=== PATIENT | female | born 1960 | race Caucasian/White ===

== ENCOUNTER 2023-05-22 08:57 | Outpatient (CLI) | payer BC, SELFPAY ==
--- NOTE | 2023-05-22 09:15 | CRLHL7_ITS ---
For Patients: As a result of the Century Cures Act, medical imaging exams and procedure reports are released immediately into your electronic medical record. You may view this report before your referring provider. If you have questions, please contact your health care provider. 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 A possible encapsulated papillary carcinoma may be present. Appropriate action recommended. This is concordant. Dictated by: Florencio Arciniega MD @05/25/2023 12:45:54 PM / CRL:breana ULTRASOUND-GUIDED RIGHT BREAST BIOPSY AND POST-BIOPSY DIGITAL MAMMOGRAM FOR BIOPSY MARKER PLACEMENT CLINICAL HISTORY: Indeterminate lesion RIGHT breast. COMPARISON STUDIES: 05/18/2023, 05/12/2023 TECHNIQUE: Real-time ultrasound with image documentation was used for targeting the breast lesion. Core biopsy specimens were obtained using an automated gun with a 18-gauge biopsy needle. Post-biopsy CC and ML digital mammograms were obtained to document position of the biopsy marker. CONSENT and TIME OUT: The procedure, risks, and alternatives were explained to the patient and a consent was signed. [place] Protocol was followed including pre-procedure verification that relevant information/documentation was available, reviewed and properly matched to the patient; consent accurate and complete; and equipment and supplies available. Time Out was conducted just prior to starting procedure to verify the four required elements: patient identity, correct side/site marked (if applicable), procedure, relevant images/results properly labeled and displayed (if applicable). PROCEDURE: The patient was positioned supine on the ultrasound table. The breast was prepped with ChloraPrep. 8 cc 1 percent lidocaine used for local anesthesia. Core samples were obtained. A sterile metal biopsy clip was placed percutaneously to lino the lesion position within the breast. The specimens were placed in 10% formalin and sent to the pathology department. Pressure was held on the biopsy site until all bleeding subsided. The skin incision was closed with Steri-Strips. An ice pack was positioned over the biopsy site. Post-biopsy instructions were reviewed with the patient, and a written copy was given to her. LATERALITY: RIGHT breast. LESION: Subtle slightly hypoechoic lesion measuring 10 x 5 x 11 millimeters at posterior depth at 1 o`clock 4 cm from the nipple. SUSPICION FOR MALIGNANCY: Medium NUMBER OF SAMPLES: 6 BIOPSY CLIP SHAPE: Oval. PROXIMITY OF CLIP TO TARGET: Within the lesion. IMPRESSION: Ultrasound-guided breast biopsy. When the pathology report is available, an addendum to this report will be made. ACR not applicable Dictated by Florencio Arciniega MD @ 05/22/2023 10:31:22 AM/MONA:graciela PT/Dictated by: Florencio Arciniega MD @ 05/22/2023 10:31:00 AM (Electronically Signed)
--- NOTE | 2023-05-22 10:00 | CRLHL7_ITS ---
For Patients: As a result of the Century Cures Act, medical imaging exams and procedure reports are released immediately into your electronic medical record. You may view this report before your referring provider. If you have questions, please contact your health care provider. PLEASE SEE RIGHT ULTRASOUND-GUIDED BIOPSY OF SAME DAY. CRL:[email or web address] PT/Dictated by: Florencio Arciniega MD @ 05/22/2023 10:31:00 AM (Electronically Signed)
== END 2023-05-22 08:58 | disposition home or self-care (01) ==
LOC: US 09:01
PROVIDERS: Visit Provider Registered Nurse
DX: R92.8 Other abnormal and inconclusive findings on diagnostic imaging of breast (principal); C50.911 Malignant neoplasm of unspecified site of right female breast
CPT/HCPCS: 19083; 77065; 88305; 88341; 88342; 88360; A4648; A4649

== ENCOUNTER 2023-05-31 14:51 | Outpatient (RCR) | payer BC, SELFPAY | END 2023-09-28 23:59 | disposition home or self-care (01) | PROVIDERS: Visit Provider Surgery | DX: I89.0 Lymphedema, not elsewhere classified (principal); Z51.89 Encounter for other specified aftercare | CPT/HCPCS: 97110; 97161 ==

== ENCOUNTER 2023-06-06 06:56 | Day surgery (SDC) | payer BC, SELFPAY ==
[2023-06-06 07:17] VITALS: BMI 33.7
[2023-06-06 07:29] VITALS: BP 137/83; PULSE 63; RESP 16; TEMP 36.4; O2SAT 97
[2023-06-06] MEDS: LACTATED RINGERS 1000 ML 1,000 ML 100 ML IV ×2 (07:40→12:30)
[2023-06-06] MEDS: SODIUM CHLORIDE 0.9 % (FLUSH) 10 ML SYRINGE IVF (07:40)
--- NOTE | 2023-06-06 08:45 | CRLHL7_ITS ---
For Patients: As a result of the Cures Act, medical imaging exams and procedure reports are released immediately into your electronic medical record. You may view this report before your referring provider. If you have questions, please contact your health care provider. RIGHT BREAST SPECIMEN RADIOGRAPH CLINICAL HISTORY: RIGHT breast cancer. COMPARISON: 05/18/2023. FINDINGS: Two views RIGHT breast specimen submitted. Specimen contains the biopsied mass, biopsy clip and localization wire. IMPRESSION: Specimen contains the mass, clip and wire. ACR not applicable. Dictated by Florencio Arciniega MD @ 06/07/2023 12:18:34 PM/ozzie ALICE/Dictated by: Florencio Arciniega MD @ 06/07/2023 12:18:00 PM (Electronically Signed)
--- NOTE | 2023-06-06 10:15 | CRLHL7_ITS ---
For Patients: As a result of the Century Cures Act, medical imaging exams and procedure reports are released immediately into your electronic medical record. You may view this report before your referring provider. If you have questions, please contact your health care provider. BREAST WIRE LOCALIZATION USING ULTRASOUND GUIDANCE CLINICAL HISTORY: Biopsy-proven malignancy RIGHT breast. Presents for lumpectomy. LATERALITY: RIGHT breast. LESION: Heterogeneous ill-defined solid mass RIGHT breast 1 o`clock posterior depth 4 cm from the nipple measuring 10 x 5 x 11 millimeters. LOCALIZATION WIRE: [place] hookwire. TECHNIQUE: The localization wire was placed using real-time ultrasound guidance with image documentation. Cranial-caudal and medial-lateral digital mammograms were obtained after localization wire placement. CONSENT and TIME OUT: The procedure, risks, and alternatives were explained to the patient and a consent was signed. [place] Protocol was followed including pre-procedure verification that relevant information/documentation was available, reviewed and properly matched to the patient; consent accurate and complete; and equipment and supplies available. Time Out was conducted just prior to starting procedure to verify the four required elements: patient identity, correct side/site marked (if applicable), procedure, relevant images/results properly labeled and displayed (if applicable). PROCEDURE: The skin was prepped with ChloraPrep and 6 cc of 1% lidocaine was injected for local anesthesia. The localization wire was placed within or near the targeted breast lesion using ultrasound guidance. The patient tolerated the procedure well. PROXIMITY OF WIRE TO LESION: Within the lesion. IMPRESSION: Successful breast wire localization. ACR not applicable Dictated by Florencio Arciniega MD @ 06/06/2023 12:05:29 PM jj/Dictated by: Florencio Arciniega MD @ 06/06/2023 12:05:00 PM (Electronically Signed)
--- NOTE | 2023-06-06 10:26 | SUR.PREOP ---
Patient to Ultra Sound by US staff at 1025.
[2023-06-06] MEDS: CEFAZOLIN 2 GM INJ IVP (12:15)
--- NOTE | 2023-06-06 13:13 | MM_ITS ---
Patient: RENO GARCIA Facility:?[facility] Patient ID:?[id number] Site Patient ID:?[id number]. Site :?[id number] Study:?XRay-Breast Right specimen, wire loc-06/06/2023 1:38:14 PM Ordering Physician:?Dave Rosenthal Final Report: RIGHT BREAST SPECIMEN RADIOGRAPH CLINICAL HISTORY: RIGHT breast cancer. COMPARISON: 05/18/2023. FINDINGS: Two views RIGHT breast specimen submitted. Specimen contains the biopsied mass, biopsy clip and localization wire. IMPRESSION: Specimen contains the mass, clip and wire. ACR not applicable. Dictated by Florencio Arciniega MD @ 06/07/2023 12:18:34 PM/ozzie ALICE/Dictated by: Florencio Arciniega MD @ 06/07/2023 12:18:00 PM Signed by:?Florencio Arciniega MD @06/07/2023 4:02:27 PM (Electronic Signature)
[2023-06-06] MEDS: LIDOCAINE 1 % PF 30 ML INJECTION (13:15)
[2023-06-06] MEDS: BUPIVACAINE 0.25% 30 ML INJECTION (13:15)
--- NOTE | 2023-06-06 14:10 | W.ANESCHARGE ---
Anesthesia Charges Start Date/Time Anesthesia Start Date: 06/06/23 Anesthesia Start Time: 12:27 Stop Date/Time Anesthesia Stop Date: 06/06/23 Anesthesia Stop Time: 14:10
--- NOTE | 2023-06-06 14:10 | W.ANESCHARGE ---
Anesthesia Charges Start Date/Time Anesthesia Start Date: 06/06/23 Anesthesia Start Time: 12:27 Stop Date/Time Anesthesia Stop Date: 06/06/23 Anesthesia Stop Time: 14:10
--- NOTE | 2023-06-06 14:13 | PM.GSPRC ---
Operative Note Pre-op diagnosis: DCIS, right breast Post-op diagnosis: Same Type of Procedure: Right breast lumpectomy, wire localization Indications: Patient is a 62-year-old female who presented to clinic with a new diagnosis DCIS of the right breast. Different treatment options were reviewed with the patient, please see consultation note for full discussion. Risks and benefits of operative intervention were discussed at length with the patient. Risks included but was not limited to: Bleeding, infection, risk of damage to surrounding structures, possible need for additional procedures and postoperative complications such as pneumonia, pulmonary emboli or MT. All questions and concerns were addressed with the patient agreeing to proceed. Procedure Description: Prior to arrival in the operating room, the patient was taken to radiology where a wire was placed to localize the previously placed clip. The right breast and axilla were prepped and draped in the usual sterile fashion. Timeout was confirmed. Local anesthesia was infiltrated into a transfers incision in the 1 o'clock position at the location of the tip of the wire. Using electrocautery, the segment of breast tissue containing the tip of the wire was excised. This was sent for evaluation. Radiology called back and confirmed that the clip, wire and mass were present within the specimen. Pathology then called back and confirmed that the margins were appropriate, but appeared close on the posterior and anterior aspect, within 5 mm, so additional margins were obtained on the anterior and posterior aspects of the lumpectomy cavity. This was sent for permanent pathology. The wounds were irrigated and all irrigant suctioned from the wound. Gerson was applied within the cavity. Additional local anesthesia was infiltrated. The wounds were then closed in layers using absorbable suture, and Dermbond was placed over the wounds. The patient was awakened without incident and taken to PACU in stable condition. Sponge, needle and instrument counts were correct x3 at the termination of the case. The patient tolerated the procedure well. Findings: Right breast DCIS, margins negative. Anesthesia: MAC and local Surgeon: Ariadna Acosta MD Estimated blood loss (mL): 5 Additional Specimen Information: 1. Right breast lumpectomy 2. Anterior margin, inked side on side of specimen 3. Posterior margin Condition: stable Disposition: same day Date of procedure: 06/06/23
[2023-06-06 14:14] VITALS: BP 125/79; PULSE 67; RESP 16; TEMP 36.4; O2SAT 95
[2023-06-06 14:30] VITALS: BP 138/76; PULSE 54; RESP 16; O2SAT 97
[2023-06-06 14:45] VITALS: BP 143/88; PULSE 53; RESP 16; O2SAT 97
--- NOTE | 2023-06-06 14:57 | SUR.PHASEII ---
Dr. Acosta into see Pt Pt up in recliner dressed with minimal assist
--- NOTE | 2023-06-06 15:13 | SUR.PHASEII ---
Pt very stoic and not speaking much discharge instructions gone over with pt and she appeared to understand questions answered pt discharged to home with no verbalization or thank you Wished her a good recovery
== END 2023-06-06 15:15 | disposition home or self-care (01) ==
PROVIDERS: PCP Internal Medicine; Visit Provider Surgery
PROC: (CPT 19125; principal; 2023-06-06 11:00)
DX: D05.11 Intraductal carcinoma in situ of right breast (principal)
CPT/HCPCS: 19125; 00400; 19285; 77065; C1769; J0665; J0690; J1100; J2001; J2250; J2405; J2704; J3010; J7120

== ENCOUNTER 2023-06-22 07:09 | Outpatient (CLI) | payer BC, SELFPAY ==
--- NOTE | 2023-06-22 07:15 | CRLHL7_ITS ---
For Patients: As a result of the 21st Century Cures Act, medical imaging exams and procedure reports are released immediately into your electronic medical record. You may view this report before your referring provider. If you have questions, please contact your health care provider. BILATERAL BREAST MRI WITHOUT AND WITH GADOLINIUM, 06/22/2023 CLINICAL HISTORY: This is a 62-year-old female with recently diagnosed RIGHT breast cancer. Patient originally had a ultrasound biopsy of a RIGHT breast 1 x 0.5 x 1.1 cm mass 1 o???clock position 4 cm from the nipple. This yielded DCIS. Cannot rule out encapsulated papillary carcinoma. Patient underwent lumpectomy on 06/06/2023 which yielded multifocal invasive ductal carcinoma measuring 4 mm and 1.8 mm. Extensive DCIS at least 17 mm. Invasive carcinoma 1 mm from the lateral margin. DCIS involves the lateral margin and is less than 1 mm from the inferior and anterior margins. INDICATION FOR BREAST MRI: Problem-solving breast MRI. COMPARISON STUDIES: Ultrasound 05/22/2023. Mammogram 06/06/2023, 02/11/2022. CONTRAST: 15 cc Dotarem. TECHNIQUE: The patient was positioned prone using a breast coil. Multiple imaging sequences were obtained using 1-1.5 mm thick slices with no gap. The image sequences include T2-weighted STIR in the axial plane, T1-weighted nonfat-saturated gradient echo in the axial plane, pre- and post-contrast T1-weighted FLASH 3D with fat suppression in the axial plane, and T1-weighted FLASH high-resolution 3D with fat suppression in the sagittal plane. Image post-processing was performed on a [employer] workstation. Complex 3D rendering including maximum intensity projections (MIPS) and volumetric renderings were obtained to optimize visualization of the extent of pathology and relationship to the nipple, skin, and chest wall. This aids in determining feasibility of breast conservation surgery. Subtraction, multiplanar reconstruction, mean curve determination, and angiogenesis mapping were also performed. The study was technically adequate. FINDINGS: Breast Density: Scattered fibroglandular tissue. Breast Background Enhancement: Mild. RIGHT Breast: There is a large 6.3 x 4.4 cm hematoma at the lumpectomy site in the RIGHT central superior breast. There is surrounding non mass enhancement present. This probably reflects post biopsy changes and/or residual tumor which cannot be excluded. There is no suspicious enhancing mass seen. LEFT Breast: There is no suspicious enhancement within the LEFT breast. Lymph Nodes: There are no abnormal axillary lymph nodes. IMPRESSIONS AND RECOMMENDATIONS: Post lumpectomy changes of the RIGHT breast. There is post operative 4.4 x 6.3 cm hematoma at the lumpectomy site. There is mild surrounding non mass enhancement which may represent post biopsy changes and/or residual tumor. There is no suspicious enhancing mass seen in either breast. There are no abnormal axillary lymph nodes. Surgical and oncological management per referring physician. BI-RADS: BI-RADS Category 6: Known Biopsy-Proven Malignancy Elaina Mauro M.D. Diagnostic/Breast Radiologist [email or web address] Transcribed: 1:28 p.m. JR/Dictated by: Elaina Mauro MD @ 06/27/2023 1:09:00 PM (Electronically Signed)
== END 2023-06-22 07:10 | disposition home or self-care (01) ==
LOC: MRI 07:10
PROVIDERS: PCP Internal Medicine; Visit Provider Surgery
DX: C50.911 Malignant neoplasm of unspecified site of right female breast (principal); D05.11 Intraductal carcinoma in situ of right breast
CPT/HCPCS: 77049; A9575

== ENCOUNTER 2023-07-18 06:57 | Day surgery (SDC) | payer BC, SELFPAY ==
[2023-07-18] VITALS (7 sets, daily range): BP systolic 128–150; BP diastolic 54–101; PULSE 59–70; RESP 16; TEMP 36–36.4; O2SAT 96–99; BMI 30.7
[2023-07-18] MEDS: LACTATED RINGERS 1000 ML 1,000 ML 100 ML IV (07:15)
--- NOTE | 2023-07-18 07:30 | CRLHL7_ITS ---
For Patients: As a result of the Century Cures Act, medical imaging exams and procedure reports are released immediately into your electronic medical record. You may view this report before your referring provider. If you have questions, please contact your health care provider. SENTINEL LYMPH NODE LOCALIZATION INJECTION CLINICAL HISTORY: Intraductal carcinoma in situ of right breast LATERALITY: Right breast TECHNIQUE: With the patient supine, the periareolar right breast was cleansed with alcohol. 2 cc of 1% buffered lidocaine was injected intradermal in the upper outer periareolar region of the right breast with a 25-gauge needle. Next, 0.63 millicuries of technetium Tc 99m filtered sulfur colloid in a volume of 1 cc was injected intradermal in the upper outer periareolar breast with a 25-gauge needle. The patient tolerated the procedure well and there were no immediate complications. IMPRESSION: Injection for sentinel lymph node of the right breast. Dictated by Florencio Arciniega MD @ 07/18/2023 9:44:10 AM (Electronically Signed)
--- NOTE | 2023-07-18 07:40 | SUR.PREOP ---
Nuclear Med here.
[2023-07-18] MEDS: SODIUM CHLORIDE 0.9 % (FLUSH) 10 ML SYRINGE IVF (07:43)
[2023-07-18] MEDS: CEFAZOLIN 2 GM INJ IVP (08:45)
[2023-07-18] MEDS: ISOSULFAN BLUE 5 ML VIAL INJECTION (08:45)
[2023-07-18] MEDS: LIDOCAINE 1 % PF 30 ML INJECTION (09:00)
[2023-07-18] MEDS: BUPIVACAINE 0.25% 30 ML INJECTION (09:00)
--- NOTE | 2023-07-18 10:33 | P.GSOP_ITS ---
Operative Note Pre-op diagnosis: Invasive ductal carcinoma, right breast Post-op diagnosis: Same Type of Procedure: 1. Re-excision lateral margin right breast lumpectomy site 2. Injection of radionucleotide tracer 3. [place] lymph node biopsy Indications: Patient is a 62-year-old female who initially underwent a right breast lumpectomy for DCIS. Unfortunately final pathology came back as invasive ductal carcinoma with positive lateral margin for DCIS. Risks and benefits of re- excision were discussed at length with the patient, as well as the rationale for sentinel lymph node in the setting of invasive cancer. Risks and benefits of the procedure were discussed at length the patient, including but not limited to: Bleeding, infection, risk of damage to surrounding structures and the possibility of positive margin. Specifically relation to the sentinel node we also discussed injury to surrounding structures and the possibility of lymphedema. All questions and concerns were addressed with patient agreeing to proceed. Procedure Description: Prior to arrival in the operating room, I injected the patient with a radiocolloid tracer. The patient was then brought to the operating room where anesthesia was induced. I injected 2 ml of lymphazurin blue and performed breast massage for a period of 5 minutes. The right breast and axilla were prepped and draped in the usual sterile fashion. Timeout was confirmed. Local anesthesia was infiltrated into a previously well-healed transverse incision at 3:00 o'clock. Using elect rocautery, the tissues were dissected down to the previously healed lumpectomy site. The lateral margin of lumpectomy was then excised with electrocautery to be sent for evaluation by pathology. Pathology did note some abnormality of the tissue leading up to the margin, concerning for DCIS invasion and requested additional tissue. Using the same techniques another lateral margin was obtained and sent for frozen evaluation. Margins were close, but negative on gross evaluation of the 2nd specimen. Hemostasis was assured and the cavity irrigated. Gerson was placed within the cavity. The incision was closed in layers with interrupted 3 0 Vicryl and running 4-0 Monocryl subcuticular stitch We then elected to perform the sentinel node aspect of the procedure. Using the neoprobe, the area of maximal counts was identified. Local anesthesia was infiltrated into the skin and an incision was made. This was carried down to the subcutaneous tissue using electrocautery. Using a combination of blunt dissection and electrocautery, a hot and blue node was resected. No additional nodes were resected in a similar fashion, taking care to tie off the lymphatics. These were sent to pathology for permanent evaluation. The axillary wound was irrigated and hemostasis assured. Gerson was placed within the cavity. The wound was closed in layers. Dermabond, fluffs and an [place]jo bandage was applied. The patient was awakened without incident and taken to PACU in stable condition. Sponge, needle and instrument counts were correct x3 at the termination of the case. Sterile dressings were then applied. ? The patient was then woken and transported to the recovery area in stable condition. ? The patient tolerated the procedure well. Findings: Well-healed lumpectomy site. Re-excision of lateral margins x2. Single sentinel lymph node identified. Surgeon: Ariadna Acosta MD Estimated blood loss (mL): 10 Additional Specimen Information: 1. Lateral margin right breast lumpectomy site 2. Re excision lateral margin right breast 3. [place] lymph node Condition: stable Disposition: same day Date of procedure: 07/18/23 [place] Node Biopsy for Breast Cancer Operation Performed with Curative Intent: Yes Tracers used to Identify sentinel nodes in the upfront surgery (non-neoadjuvant) setting: Dye and Radioactive Tracer All nodes (colored or non-colored) present at the end of a dye filled lymphatic channel were removed: Yes All significantly radioactive nodes were removed: Yes All palpably suspicious nodes were removed: Yes Biopsy proven positive nodes marked with clips prior to chemotherapy were identified and removed: Not Applicable
--- NOTE | 2023-07-18 10:41 | W.ANESCHARGE ---
Anesthesia Charges Start Date/Time Anesthesia Start Date: 07/18/23 Anesthesia Start Time: 08:33 Stop Date/Time Anesthesia Stop Date: 07/18/23 Anesthesia Stop Time: 10:32
--- NOTE | 2023-07-18 11:37 | W.ANESCHARGE ---
Anesthesia Charges Start Date/Time Anesthesia Start Date: 07/18/23 Anesthesia Start Time: 08:33 Stop Date/Time Anesthesia Stop Date: 07/18/23 Anesthesia Stop Time: 10:32
[2023-07-18] MEDS: ACETAMINOPHEN 325 MG TABLET 650 MG PO (11:41)
== END 2023-07-18 12:11 | disposition home or self-care (01) ==
PROVIDERS: PCP Internal Medicine; Visit Provider Surgery
PROC: (CPT 19120; principal; 2023-07-18 08:30)
PROC: (CPT 19120; 2023-07-18 08:30)
DX: C50.911 Malignant neoplasm of unspecified site of right female breast (principal)
CPT/HCPCS: 19120; 38500; 01610; 38792; 88307; A9270; A9541; J0665; J0690; J1100; J2001; J2250; J2405; J2704; J3010; J7120

== ENCOUNTER 2023-08-30 14:32 | Outpatient (CLI) | payer BC, SELFPAY ==
--- NOTE | 2023-08-30 15:00 | CRLHL7_ITS ---
For Patients: As a result of the Century Cures Act, medical imaging exams and procedure reports are released immediately into your electronic medical record. You may view this report before your referring provider. If you have questions, please contact your health care provider. DXA BONE MINERAL DENSITY STUDY Current height (in): 64.0. Weight (lb): 196.0 Menopause age: 56. Ethnicity: White. Reason for exam: Menopausal and female climacteric states, menopausal syndrome. 1. Have you had a previous hip or vertebral fracture? No. 2. Have you had any fractures during your adult life which did not result from significant trauma (e.g., auto accident)? No. 3. Did either of your parents have a hip fracture? Yes. 4. Do you smoke? No. 5. Have you ever taken Glucocorticoids? No. 6. Do you have rheumatoid arthritis? No. 7. Do you have secondary osteoporosis? No. 8. Do you drink 3 or more alcoholic drinks per day? No. 9. Are you being treated for osteoporosis? No. 10. Have you ever taken any of the following medications: Actonel, Evista, Fosamax, Miacalcin, Reclast, Boniva, Forteo, HRT (i.e. estrogen/hormone therapy), Protelos, Prolia, Vitamin D, Calcium, other ??? please specify. ANSWER: No. 11. Do you have any of the following medical conditions: Anorexia or bulimia, asthma or emphysema, end stage renal disease, hyperparathyroidism, any seizure disorders, cancer, inflammatory bowel diseases, hysterectomy, other ??? please specify. ANSWER: Yes, cancer. 12. What was your maximum height (inches)? 67. 13. Do you perform weight bearing exercise regularly? No. 14. Do you regularly consume dairy products? Yes. 15. Do you drink caffeinated beverages? Yes. 16. At what age did your period start? 14. 17. Are you premenopausal? No. 18. How many full term pregnancies have you had? 2. 19. Have you ever missed your period for more than 6 months in a row (not including or menopause)? No. TECHNIQUE: Bone mineral density study was performed using the [employer]. FINDINGS: The results of the study expressed as bone mineral density (BMD) are as follows: Lumbar spine L2 to L4: BMD: 1.324 g/cm2. T-score: 2.2. Z-score: 3.8 Neck Left: BMD: 0.842 g/cm2. T-score: -0.1. Z-score: 1.3 Total Left: BMD: 0.970 g/cm2. T-score: 0.2. Z-score: 1.3 IMPRESSION: Normal bone density. Florencio Arciniega M.D. Diagnostic Radiologist [email or web address] Transcribed: 11:44 am DW/Dictated by: Florencio Arciniega MD @ 08/31/2023 10:51:00 AM (Electronically Signed)
== END 2023-08-30 14:33 | disposition home or self-care (01) ==
LOC: RAD 14:33
PROVIDERS: PCP Internal Medicine; Visit Provider Internal Medicine Hematology & Oncology
DX: N95.1 Menopausal and female climacteric states (principal)
CPT/HCPCS: 77080

== ENCOUNTER 2023-12-04 06:30 | Outpatient (CLI) | payer BC, SELFPAY ==
--- OUTSIDE RECORDS SUMMARY | 2023-12-04 06:33 | XMS_ITS | Encounter Summary ---
Author Name Unknown Organization [facility] Address [address] [place] [address] Care Team Providers Care Wind Turbine Electrical Engineer Name Role Phone Unavailable Primary Care Provider Unavailabl e Encounter Details Date Type Department Care Team (Late st Contact Info) Description 10/19/2023 Clinical Communication Department of Radiation Oncology in [place], [place] [address] [place] [address] Fran Delgado M.D. [address] [place] [phone] Social History Tobacco Use Types Packs/Day Years Used Date Smoking Tobacco: Never Smokeless Tobacco: Never [facility] Utilities Answer Date Recorded In the past 12 months has [facility] electric, gas, oil, or water company threatened to shut off services in your home? No 09/19/2023 Exercise Vital Sign Answer Date Recorde d On average, how many days pe r week do you engage in moderate to strenuous exercise (like a brisk walk)? 2 days Minutes of Exercise per Session Not on file 09/19/2023 Hunger Vital Sign Answer Date Recorded Within the past 12 months, y ou worried that your food would run out before you got the money to buy more. Never true 09/19/19 24 Within the past 12 months, t he food you bought just didn't last and you didn't have money to get more. Never true 09/19/2023 PRAPARE - Transportation Answer Date Re corded In the past 12 months, has l ack of transportation kept you from medical appointments or from getting medications? No 08/29 In the past 12 months, has l ack of transportation kept you from meetings, work, or from getting things needed for daily living? No 09/19/2023 Nutrition Answer Date Recorded Nutrition: EVOO Fat Source Unknown 09/19 On average, how many serving s of fruits and vegetables do you eat per day (serving size is equal to 1 cup or approximately the size of a tennis ball)? 0-2 09/19/2023 Dental Answer Date Recorded Dental: Regular Dentist Yes 09/19/19 24 Employment Answer Date Recorded Employment status Working with temporary restric tions 09/19/2023 Housing Stability Answer Date Recorded What is your living situation today? I have a [facility] place to live 09/19/2023 Sex and Gender Information Value Date Recorded Sex Assigned at Female 09/19/2023 1:29 PM LAND SURVEYOR MANAGER Gender Identity Female 09/19/2023 1:31 PM LAND SURVEYOR MANAGER Sexual Orientation Straight 09/19/2023 1: 31 PM LAND SURVEYOR MANAGER documented as of this encounter Miscellaneous Notes * Telephone Encounter - Xenia Hall R.N. - 10/19/2023 10:51 AM LAND SURVEYOR MANAGER Information Discussed Called patient to discuss Mometasone refill. Patient is 3 weeks post completion of radiation therapy and reports that her skin is healing nicely and that she doesn't have any blistering or peeling. Her skin is not dry or itchy and she continues to use Aquaphor and lotion for hydration. She has beenintermittently applying the Mometasone cream to her scar for discomfort and felt that the cream helped. PLAN Discussed with patient that we typically wouldn't refill the Mometasone if her skin was healed and she wasn't experiencing radiation related dermatitis. She can apply Aquaphor on her scar and massageher scar daily to help with discomfort. She could also try OTC Hydrocortisone cream as well to her scar. Patient verbalized understanding and had no further questions. Disposition/Recommendation: self-care - appropriate at this time, patient encouraged to call back with questions Information/Education: patient/caller able to teach back Caller agreeable to plan of care: yes The following references were used: nursing clinical judgement SURVEYOR MANAGER * Telephone Encounter - Brandon Hall - 10/19/2023 9:55 AM CST Refill Medication Request: Medication: Mometasone Patient attempted to refill this prescription and the pharmacy stated that it was denied. Patient would like a refill of the cream as she says it provides her with a fair amount of relief. Patient uses [facility] in [place]. SURVEYOR MANAGER documented in this encounter Plan of Treatment Not on file documented as of this encounter Visit Diagnoses Not on filedocumented in this encounter
--- OUTSIDE RECORDS SUMMARY | 2023-12-04 06:33 | XMS_ITS | Referral Summary ---
Author Name Unknown Organization [facility] Address [address] [place] [address] Care Team Providers Care Veterans Service Representative Name Role Phone Unavailable Primary Care Provider Unavailabl e Source Comments Patient records contain information from all sites at [facility]. For routine questions regarding patient records, call [phone] during business hours, M-F 8:00 AM - 5:00 PM Central Time. Record requests for emergency care only can be directed to [phone] at any time.[facility] Encounters Date Type Department Care Team Description 10/19/2023 Clinical Communication Department of Radiation Oncology in [address] [phone] Fran Delgado M.D. 10/19/2023 Refill Department of Radiation Oncology in [address] [address] Bella Mora P.A.-C., M.S. Med Refill 09/29/2023 Documentation Department of Radiation Oncology in [address] [address] Pastora Wayne M.D. 09/29/2023 1:06 PM PYROTECHNICS PRESS TENDER - 09/29/2023 11:59 PM PYROTECHNICS PRESS TENDER Hospital Encounter Department of Radiation Oncology in [address] [address] Pastora Wayne M.D. Discharge Disposition: Home or Self Care 09/28/2023 12:21 PM PYROTECHNICS PRESS TENDER - 09/28/2023 11:59 PM PYROTECHNICS PRESS TENDER Hospital Encounter Department of Radiation Oncology in [address] [phone] Pastora Wayne M.D. Discharge Disposition: Home or Self Care 09/27/2023 12:51 PM PYROTECHNICS PRESS TENDER - 09/27/2023 11:59 PM PYROTECHNICS PRESS TENDER Hospital Encounter Department of Radiation Oncology in [address] [address] Pastora Wayne M.D. Discharge Disposition: Home or Self Care 09/26/2023 12:52 PM PYROTECHNICS PRESS TENDER - 09/26/2023 4:16 PM PYROTECHNICS PRESS TENDER Hospital Encounter Department of Radiation Oncology in [address] [address] Pastora Wayne M.D. 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 Discharge Disposition: Home or Self Care 09/25/2023 12:49 PM PYROTECHNICS PRESS TENDER - 09/25/2023 11:59 PM PYROTECHNICS PRESS TENDER Hospital Encounter Department of Radiation Oncology in [address] [address] Pastora Wayne M.D. Discharge Disposition: Home or Self Care 09/22/2023 12:51 PM PYROTECHNICS PRESS TENDER - 09/22/2023 11:59 PM PYROTECHNICS PRESS TENDER Hospital Encounter Department of Radiation Oncology in [address] [address] Pastora Wayne M.D. Discharge Disposition: Home or Self Care 09/21/2023 12:53 PM PYROTECHNICS PRESS TENDER - 09/21/2023 11:59 PM PYROTECHNICS PRESS TENDER Hospital Encounter Department of Radiation Oncology in [address] [address] Pastora Wayne M.D. Discharge Disposition: Home or Self Care 09/20/2023 12:51 PM PYROTECHNICS PRESS TENDER - 09/20/2023 11:59 PM PYROTECHNICS PRESS TENDER Hospital Encounter Department of Radiation Oncology in [address] [address] Pastora Wayne M.D. Discharge Disposition: Home or Self Care 09/19/2023 12:53 PM PYROTECHNICS PRESS TENDER - 09/19/2023 3:51 PM PYROTECHNICS PRESS TENDER Hospital Encounter Department of Radiation Oncology in [address] [phone] Pastora Wayne M.D. 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 Discharge Disposition: Home or Self Care 09/18/2023 12:35 PM PYROTECHNICS PRESS TENDER - 09/18/2023 1:34 PM PYROTECHNICS PRESS TENDER Hospital Encounter Department of Radiation Oncology in [address] [address] Pastora Wayne M.D. 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 Discharge Disposition: Home or Self Care 09/15/2023 12:25 PM PYROTECHNICS PRESS TENDER - 09/15/2023 11:59 PM PYROTECHNICS PRESS TENDER Hospital Encounter Department of Radiation Oncology in [address] [address] Pastora Wayne M.D. 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 Discharge Disposition: Home or Self Care 09/14/2023 12:31 PM PYROTECHNICS PRESS TENDER - 09/14/2023 11:59 PM PYROTECHNICS PRESS TENDER Hospital Encounter Department of Radiation Oncology in [address] [phone] Pastora Wayne M.D. Discharge Disposition: Home or Self Care 09/13/2023 10:27 AM PYROTECHNICS PRESS TENDER - 09/13/2023 1:25 PM PYROTECHNICS PRESS TENDER Hospital Encounter Department of Radiation Oncology in [address] [address] Pastora Wayne M.D. 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 Discharge Disposition: Home or Self Care 09/12/2023 12:23 PM PYROTECHNICS PRESS TENDER - 09/12/2023 11:59 PM PYROTECHNICS PRESS TENDER Hospital Encounter Department of Radiation Oncology in [address] [phone] Pastora Wayne M.D. Discharge Disposition: Home or Self Care 09/11/2023 11:49 AM PYROTECHNICS PRESS TENDER - 09/11/2023 11:59 PM PYROTECHNICS PRESS TENDER Hospital Encounter Department of Radiation Oncology in [address] [address] Pastora Wayne M.D. Discharge Disposition: Home or Self Care from Last 3 Months Allergies No known active allergies Medications Medication Sig Dispensed Refills Start Date End Date Status HYDROcodone-acetamin ophen (NORCO) 5-325 mg per tablet Take 1 tablet by mouth every 6 (six) hours as needed for pain. 0 06/06/2023 Active senna 8.6 mg tablet TAKE 1 TABLET BY MOUTH EVERY DAY NEEDED FOR CONSTIPATION. 0 06/06/2023 Active mometasone (ELOCON) 0.1 % cream Apply 1 Application topically daily. Apply to skin within the treatment field. 45 g 0 08/31/2023 Active Active Problems Problem Noted Date Diagnosed Date Malignant Neoplasm Of Breast Upper Inner Quadrant Female Right 07/03/2023 Cancer Staging:Pathologic stage from 06/06/2023:Stage Unknown(pT1a, pNX, cM0, G2, ER+, [place]+, HER2-) - Unsigned Social History Tobacco Use Types Packs/Day Years Used Date Smoking Tobacco: Never Smokeless Tobacco: Never Tobacco Cessation:Counseling Given: Not Answered [facility] Utilities Answer Date Recorded In the past 12 months has th e [employer], gas, oil, or water [employer] threatened to shut off services in your [...] money to buy more. Never true 09/19/19 Within the past 12 months, t he [...] Date Recorded Dental: Regular Dentist Yes 09/19/19 Employment Answer Date Recorded Employment status Working with temporary restric tions 09/19/2023 Housing Stability Answer Date Recorded What is your living situation today? I have a [facility] place to live 09/19/2023 Sex and Gender Information Value Date Recorded Sex Assigned at Female 09/19/2023 1:29 PM PYROTECHNICS PRESS TENDER Gender Identity Female 09/19/2023 1:31 PM PYROTECHNICS PRESS TENDER Sexual Orientation Straight 09/19/2023 1: 31 PM PYROTECHNICS PRESS TENDER Last Filed Vital Signs Vital Sign Reading Time Taken Comments Blood Pressure 132/76 08/30/2023 12:55 PM PYROTECHNICS PRESS TENDER Pulse 68 08/30/2023 12:55 PM PYROTECHNICS PRESS TENDER Temperature 36.1 ??C (97 ??F) 09/19/2023 1:32 PM PYROTECHNICS PRESS TENDER Respiratory Rate - - Oxygen Saturation - - Inhaled Oxygen Concentration - - Weight 88.4 kg (194 lb 14.2 oz) 024 10:46 AM PYROTECHNICS PRESS TENDER Height - - Body Mass Index - - Plan of Treatment Not on file Procedures Procedure Name Priority Date/Time Associated Diagnosis Comments ARIA COURSE COMPLETE TREATMENT INFORMATION Routine 09/29/2023 1:24 PM PYROTECHNICS PRESS TENDER ARIA DAILY TREATMENT INFORMATION Routine 09/29/2023 1:24 PM PYROTECHNICS PRESS TENDER ARIA DAILY TREATMENT INFORMATION Routine 09/28/2023 1:07 PM PYROTECHNICS PRESS TENDER ARIA DAILY TREATMENT INFORMATION Routine 09/27/2023 1:10 PM PYROTECHNICS PRESS TENDER ARIA DAILY TREATMENT INFORMATION Routine 09/26/2023 1:16 PM PYROTECHNICS PRESS TENDER ARIA DAILY TREATMENT INFORMATION Routine 09/25/2023 1:20 PM PYROTECHNICS PRESS TENDER ARIA DAILY TREATMENT INFORMATION Routine 09/22/2023 1:18 PM PYROTECHNICS PRESS TENDER ARIA DAILY TREATMENT INFORMATION Routine 09/21/2023 1:07 PM PYROTECHNICS PRESS TENDER ARIA DAILY TREATMENT INFORMATION Routine 09/20/2023 1:17 PM PYROTECHNICS PRESS TENDER ARIA DAILY TREATMENT INFORMATION Routine 09/19/2023 1:05 PM PYROTECHNICS PRESS TENDER ARIA DAILY TREATMENT INFORMATION Routine 09/18/2023 12:42 PM PYROTECHNICS PRESS TENDER ARIA DAILY TREATMENT INFORMATION Routine 09/15/2023 12:47 PM PYROTECHNICS PRESS TENDER ARIA DAILY TREATMENT INFORMATION Routine 09/14/2023 12:47 PM PYROTECHNICS PRESS TENDER ARIA DAILY TREATMENT INFORMATION Routine 09/13/2023 10:39 AM PYROTECHNICS PRESS TENDER ARIA DAILY TREATMENT INFORMATION Routine 09/12/2023 1:00 PM PYROTECHNICS PRESS TENDER ARIA DAILY TREATMENT INFORMATION Routine 09/11/2023 12:28 PM PYROTECHNICS PRESS TENDER ARIA COURSE COMPLETE TREATMENT INFORMATION Routine 09/06/2023 12:40 PM PYROTECHNICS PRESS TENDER from Last 3 Months Results * Aria Course Complete Treatment Information (09/29/2023 1:24 PM PYROTECHNICS PRESS TENDER) Only the most recent of2 resultswithin the time period is included. Course ID 1xBreast TORIBIO ARIA Course Start Date 4 09:06 PYROTECHNICS PRESS TENDER TORIBIO ARIA Course End Date 4 13:16 PYROTECHNICS PRESS TENDER TORIBIO ARIA First Treatment Date 4 12:27 PYROTECHNICS PRESS TENDER TORIBIO ARIA Last Treatment Date 4 13:24 PYROTECHNICS PRESS TENDER TORIBIO ARIA Treatment Elapsed Days 18 TORIBIO ARIA Reference Point [id number] TORIBIO ARIA Dosage Given to Date cGy 4005 TORIBIO ARIA Plan ID [id number] TORIBIO ARIA Fractions Treated to Date 15 TORIBIO ARIA Planned Total Fractions 15 TORIBIO ARIA Prescribed Dose Per Fraction 267 TORIBIO ARIA Prescription Dose in cGy 4005 TORIBIO ARIA Plan Primary Reference Point [id number] TORIBIO ARIA 09/29/2023 1:24 PM PYROTECHNICS PRESS TENDER Provider Not In System RADIATION ONCOLOG Y ORDERABLES TORIBIO ARIA na * Aria Daily Treatment Information (09/29/2023 1:24 PM PYROTECHNICS PRESS TENDER) Only the most recent of15 resultswithin the time period is included. Course ID 1xBreast TORIBIO ARIA Course Start Date 4 09:06 PYROTECHNICS PRESS TENDER TORIBIO ARIA First Treatment Date 4 12:27 PYROTECHNICS PRESS TENDER TORIBIO ARIA Last Treatment Date 4 13:24 PYROTECHNICS PRESS TENDER TORIBIO ARIA Treatment Elapsed Days 18 TORIBIO ARIA Reference Point [id number] TORIBIO ARIA Dosage Given to Date cGy 4005 TORIBIO ARIA Session Dosage Given 267 TORIBIO ARIA Plan ID [id number] TORIBIO ARIA Fractions Treated to Date 15 TORIBIO ARIA Planned Total Fractions 15 TORIBIO ARIA Prescribed Dose Per Fraction 267 TORIBIO ARIA Prescription Dose in cGy 4005 TORIBIO ARIA Plan Primary Reference Point [id number] TORIBIO ARIA 09/29/2023 1:24 PM PYROTECHNICS PRESS TENDER Provider Not In System RADIATION ONCOLOG Y ORDERABLES MALU GRANGER na from Last 3 Months
--- OUTSIDE RECORDS SUMMARY | 2023-12-04 06:33 | XMS_ITS ---
Author Name Unknown Organization [facility] Address [address] [place] [address] Care Team Providers Care Seamer Operator Name Role Phone Unavailable Primary Care Provider Unavailabl e Active Problems Problem Noted Date Diagnosed Date Malignant Neoplasm Of Breast Upper Inner Quadrant Female Right 07/03/2023 Cancer Staging:Pathologic stage from 06/06/2023:Stage Unknown(pT1a, pNX, cM0, G2, ER+, [place]+, HER2-) - Unsigned Current Oncology Plans No current plan information found. Past Plans No past plan information found. Radiation Treatments * Plan Last Treated On Elapsed Days Fractions Treated Prescribed Fraction Dose Prescribed Total Dose [id number] 09/29/2023 18 15 of 15 267 cGy 4,005 cGy Reference Point Last Treated On Elapsed Days Session Dose Total Dose [id number] 09/29/2023 18 267 cGy 4,005 cGy
--- OUTSIDE RECORDS SUMMARY | 2023-12-04 06:33 | XMS_ITS | Encounter Summary ---
Author Name Unknown Organization [facility] Address [address] [place] [address] Care Team Providers Care Motor And Generator Assembler Name Role Phone Unavailable Primary Care Provider Unavailabl e Reason for Visit * Reason Comments Med Refill Encounter Details Date Type Department Care Team (Late st Contact Info) Description 10/19/2023 Refill Department of Radiation Oncology in [place], [place] [address] [place] [address] Bella Mora P.A.-C., M.S. [address] [place] [address] Med Refill Social History Tobacco Use Types Packs/Day Years Used Date Smoking Tobacco: Never Smokeless Tobacco: Never [facility] Utilities Answer Date Recorded In the past 12 months has [facility] electric, gas, oil, or water [employer] threatened to shut off services in your [...] Date Recorded Employment status Working with temporary [employer] 09/19/2023 Housing Stability Answer Date Recorded What is your living situation today? I have a [facility] place to live 09/19/2023 Sex and Gender Information Value Date Recorded Sex Assigned at Female 09/19/2023 1:29 PM TORPEDO SHOOTER Gender Identity Female 09/19/2023 1:31 PM TORPEDO SHOOTER Sexual Orientation Straight 09/19/2023 1: 31 PM TORPEDO SHOOTER documented as of this encounter Plan of Treatment Not on file documented as of this encounter Visit Diagnoses Not on filedocumented in this encounter
--- OUTSIDE RECORDS SUMMARY | 2023-12-04 06:33 | XMS_ITS ---
Author Name Unknown Organization [facility] Address [address] [place] [address] Care Team Providers Care Manager Book Name Role Phone Unavailable Unavailable Unavailable Surgery Details Not on file Complications Check Surgery Details section. Procedure Estimated Blood Loss Check Surgery Details section. Procedure Findings Check Surgery Details section. Procedure Specimens Taken Check Surgery Details section.
--- OUTSIDE RECORDS SUMMARY | 2023-12-04 06:33 | XMS_ITS | Clinical Summary ---
Author Name Unknown Organization [employer] [facility] Address [place], [place] [address] Care Team Providers Care Orchard Pruner Name Role Phone Donya Cortes MD Primary Care Provider [phone] Allergies No known active allergies Medications No known medications Active Problems Problem Noted Date Diagnosed Date Previous delivery, delivered, with or without mention of antepartum condition 12/27/2006 Immunizations Name Administration Dates Next Due Influenza A (H1N1), Inactivated 06/24/2009 Influenza Virus, Unspecified 04/30/2017 Influenza, IIV3 (Age 6-35 mos) 06/01/2011 Influenza, IIV3 (Age >=3 years) 05/23/2012 Influenza, IIV4 06/08/2022, 0,05/09/2013,06/24/20 09 Influenza, IIV4 (=>6mos) MDV 05/29/2019 Tdap 02/27/2023,08/17/2012 Zoster (Shingrix-RZV, recombinant) 05/15/2020, Family History Medical History Relation Name Comments Cancer-breast Other Pat. Cousin Cancer-breast Paternal Aunt Cancer-ovarian No Family History Relation Name Status Comments Other Pat. Cousin Alive Paternal Aunt Social History Tobacco Use Types Packs/Day Years Used Date Smoking Tobacco: Never Smokeless Tobacco: Never Tobacco Cessation:Counseling Given: Yes Alcohol Use Standard Drinks/Week Comments No 0 (1 standard drink = 0.6 oz pur e alcohol) Social Connections Answer Date Recorded Frequency of Communication with Friends and Fami ly Not on file 11/24/2022 Financial Resource Strain Answer Date R ecorded Difficulty of Paying Living Expenses Not on file 08/28/2021 Difficulty of Paying Living Expenses Not on file 08/28/2021 Sex and Gender Information Value Date Recorded Sex Assigned at Not on file Gender Identity Not on file Sexual Orientation Not on file Obstetrics History Last Filed Vital Signs Vital Sign Reading Time Taken Comments Blood Pressure 141/77 02/27/2023 9:40 AM CDT Pulse 71 02/27/2023 9:40 AM CDT Temperature 37.5 ??C (99.5 ??F) 10/08/2019 1:57 PM CS T Respiratory Rate 18 10/08/2019 1:57 PM FITTER HELPER Oxygen Saturation 97% 02/27/2023 9:40 AM CDT Inhaled Oxygen Concentration - - Weight 90.4 kg (199 lb 3.2 oz) 02/27/2023 9:40 A M CDT Height 166.4 cm (5' 5.51) 10/08/2019 1:57 PM CS T Body Mass Index 32.63 10/08/2019 1:57 PM FITTER HELPER Plan of Treatment Upcoming Encounters Date Type Department Care Team (Late st Contact Info) Description 01/02/2024 1:40 PM CDT Office Visit [facility] [address] [place], [place] [address] Tamara Horton PA [address] [place], [place] [id number] Health Maintenance Due Date Last Done Comments Depression screening for age 12+ 1973 HIV for age 15-65 1976 Hepatitis C screening for age 18-79 1979 Colonoscopy through age 75 2006 BMI (ht and wt on same day) for age 18+ 10/08/2020 10/08/2019, 10/01/2019, 12/01/2017 Lipids for age 45-75 11/29/2022 11/29/2017 COVID-19 vaccine series (2022- season) 2023 05/19/2022, 12/03/2021, 07/09/2021, Additional history exists Influenza for age 50-64 04/28/2024 06/08/20, 05/27/2020, 05/29/2019, Additional history exists Mammogram for age 45-75 05/18/2024 05/18/20 23, 05/12/2023, 02/11/2022, Additional history exists Pap test for age 21-65 03/14/2026 3, 03/14/2023, 05/12/2006, Additional history exists Tetanus booster 02/27/2033 02/27/2023, 08/17/2012 Zoster (shingles) series for age 50+ Completed 05/15/2020, 02/07/2020 Tdap Completed 02/27/2023, 08/17/2012 Pneumococcal series for age 6-64 Aged Out No longer eligible based on patient's age to complete this topic Procedures Procedure Name Priority Date/Time Associated Diagnosis Comments XR MAMMO GALE UNI ADDL VIEWS RIGHT LORIE 05/18/2023 2:03 PM CDT Abnormal mammogram HPV THIN PREP Routine 03/14/2023 5:00 PM CDT LIPID PANEL W REFLEX MEASURED LDL Routine 11/29/2017 8:21 AM CDT Screening for lipid disorders from Last 3 Months or Most Recently Relevant to Health Maintenance Results * XR MAMMO GALE UNI ADDL VIEWS RIGHT (05/18/2023 2:03 PM CDT) Anatomical Region Laterality Modality BREASTS, Breast Right Mammograph y Impressions 05/18/2023 3:35 PM CDT Suspicious somewhat ill-defined heterogeneously hypoechoic nodule RIGHT breast 1 o'clock 4 cm measuring 1.1 cm at mid depth. RECOMMENDATIONS: Ultrasound-guided core needle biopsy. BI-RADS Category 4: Suspicious Results and recommendations discussed with the patient. Dictated by: Florencio Arciniega MD @05/18/2023 2:54:26 PM/ozzie PATIENTS: You will also receive a letter with your examination results in an easy to read format. ??If you have questions about your results, please contact your referring provider. Narrative 05/18/2023 3:35 PM CDT As a result of the Century Cures Act, medical imaging exams and procedure reports are released immediately into your electronic medical record. ??You may view this report before your referring provider. ??If you have questions, please contact your health care provider. RIGHT BREAST MAMMOGRAM DIGITAL ADDITIONAL VIEWS WITH TOMOSYNTHESIS 05/18/2023 ?? RIGHT BREAST ULTRASOUND 05/18/2023 CLINICAL HISTORY: RIGHT breast mass/asymmetry. COMPARISON: 05/12/2023. TECHNIQUE: Digital RIGHT mammogram in 2 projections. ??Tomosynthesis used. Real-time ultrasound imaging of RIGHT breast with imaging documentation. BREAST COMPOSITION: There are scattered areas of fibroglandular density. FINDINGS: 3D spot-compression CC/MLO RIGHT breast mammogram images submitted. Persistent nodular density within the upper inner quadrant RIGHT breast. No architectural distortion. Targeted RIGHT breast ultrasound performed at 1 o'clock 4 cm from the nipple. A subtle hypoechoic nodule is present with mild heterogeneity measuring 1.0 x 0.5 x 1.1 cm. Mignon Sewell NP MAMMO * HPV HIGH RISK (03/14/2023 5:00 PM CDT) TYPE 16 Negative Negative 03/23/2023 1:50 PM CDT [facility] TYPE 18 Negative Negative 03/23/2023 1:50 PM CDT [facility] OTHER HIGH RISK TYPES Negative Negative 03/23/2023 1:50 PM CDT [facility] Other (Cervical) 03/14/2023 5:00 PM CDT 03/22/2023 11:44 AM CDT Narrative [facility] - 03/23/2023 1:50 PM CDT HPV types 16, 18, 31, 33, 35, 39, 45, 51, 52, 56, 58, 59, 66 and 68 DNA were undetectable or below the pre-set threshold. Methodology: Celia Francis 4800 HPV Test Mignon Sewell NP [facility] [address] [place] [address], [place] * (ABNORMAL) LIPID PANEL W REFLEX MEASURED LDL (11/29/2017 8:21 AM CDT) CHOLESTEROL,TOTAL 150 100 - 199 mg/dL 11/29/2017 2:53 PM CDT [facility] TRIGLYCERIDES 70 <150 mg/dL 11/29/2017 2:53 PM CDT [facility] HDL CHOLESTEROL 39(L) >40 mg/dL 8 2:53 PM CDT [facility] NON-HDL CHOLESTEROL 111 <145 mg/dl 11/29/2017 2:53 PM CDT [facility] CHOL/HDL RATIO 3.85 <4.50 11/29/2017 2:53 PM CDT [facility] LDL CHOLESTEROL 97 <=130 mg/dL 11/29/2017 2:53 PM CDT [facility] PROVIDER ORDERED STATUS RANDOM 11/29/2017 2:53 PM CDT [facility] Blood BLOOD SPECIMEN / Unknown Butterfly / Unknown 11/29/2017 8:21 AM CDT 11/29/2017 8:21 AM CDT Ping WYATT CHEMISTRY [facility] [address] [place] [address], from Last 3 Months or Most Recently Relevant to Health Maintenance Care Teams Orchard Pruner Relationship Specialty Start Date End Date Donya Cortes MD [address] [place] [address] PCP - General 02/09/22
--- OUTSIDE RECORDS SUMMARY | 2023-12-04 06:33 | XMS_ITS | Referral Summary ---
Author Name Unknown Organization [facility] Address [address] [place] [address] Care Team Providers Care Promotions Executive Producer Name Role Phone Md, Not Listed Primary Care Provider Unavailabl e Allergies No known active allergies Medications Medication Sig Dispensed Refills Start Date End Date Status NO MEDICATIONS Active Social History Tobacco Use Types Packs/Day Years Used Date Smoking Tobacco: Never Smokeless Tobacco: Never Alcohol Use Standard Drinks/Week Comments Yes 0 (1 standard drink = 0.6 oz pur e alcohol) very little Sex and Gender Information Value Date Recorded Sex Assigned at Not on file Gender Identity Not on file Sexual Orientation Not on file Last Filed Vital Signs Vital Sign Reading Time Taken Comments Blood Pressure 112/74 08/09/2023 12:30 PM BENCH ASSEMBLER ELECTRICAL Pulse 70 08/09/2023 12:30 PM BENCH ASSEMBLER ELECTRICAL Temperature 36.8 ??C (98.2 ??F) 08/09/2023 11:[address] Respiratory Rate 12 08/09/2023 12:30 PM BENCH ASSEMBLER ELECTRICAL Oxygen Saturation 97% 08/09/2023 12:30 PM BENCH ASSEMBLER ELECTRICAL Inhaled Oxygen Concentration - - Weight - - Height 170.2 cm (5' 7) 08/07/2023 4:18 PM BENCH ASSEMBLER ELECTRICAL Body Mass Index - - Plan of Treatment Not on file Care Teams Promotions Executive Producer Relationship Specialty Start Date End Date , Not Listed no address PCP - General Family Medicine 08/08/23
--- OUTSIDE RECORDS SUMMARY | 2023-12-04 06:33 | XMS_ITS | Clinical Summary ---
Author Name Unknown Organization [facility] Address [address] [place] [address] Care Team Providers Care Accessories Repairer Name Role Phone Unavailable Primary Care Provider Unavailabl e Source Comments Patient records contain information from all sites at [facility]. For routine questions regarding patient records, call [phone] during business hours, M-F 8:00 AM - 5:00 PM Central Time. Record requests for emergency care only can be directed to [phone] at any time.[facility] Allergies No known active allergies Medications Medication [...] from 06/06/2023:Stage Unknown(pT1a, pNX, cM0, G2, ER+, AK+, HER2-) - Unsigned Encounters Date Type Department Care Team Description 10/19/2023 Clinical Communication Department of Radiation Oncology in [place], [place] [address] [place] [address] Fran Delgado M.D. 10/19/2023 Refill Department of Radiation Oncology in [place], [place] [address] [place] [address] Bella Mora P.A.-C., M.S. Med Refill 09/29/2023 1:06 PM INSOLE TACK PULLER HAND - 09/29/2023 11:59 PM INSOLE TACK PULLER HAND Hospital Encounter Department of Radiation Oncology in [address] [address] Pastora Wayne M.D. Discharge Disposition: Home or Self Care 09/29/2023 Documentation Department of Radiation Oncology in [address] [address] Pastora Wayne M.D. 09/28/2023 12:21 PM INSOLE TACK PULLER HAND - 09/28/2023 11:59 PM INSOLE TACK PULLER HAND Hospital Encounter Department of Radiation Oncology in [address] [address] Pastora Wayne M.D. Discharge Disposition: Home or Self Care 09/27/2023 12:51 PM INSOLE TACK PULLER HAND - 09/27/2023 11:59 PM INSOLE TACK PULLER HAND Hospital Encounter Department of Radiation Oncology in [address] [address] Pastora Wayne M.D. Discharge Disposition: Home or Self Care 09/26/2023 12:52 PM INSOLE TACK PULLER HAND - 09/26/2023 4:16 PM INSOLE TACK PULLER HAND Hospital Encounter Department of Radiation Oncology in [address] [address] Pastora Wayne M.D. 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 Discharge Disposition: Home or Self Care 09/25/2023 12:49 PM INSOLE TACK PULLER HAND - 09/25/2023 11:59 PM INSOLE TACK PULLER HAND Hospital Encounter Department of Radiation Oncology in [address] [address] Pastora Wayne M.D. Discharge Disposition: Home or Self Care 09/22/2023 12:51 PM INSOLE TACK PULLER HAND - 09/22/2023 11:59 PM INSOLE TACK PULLER HAND Hospital Encounter Department of Radiation Oncology in [address] [address] Pastora Wayne M.D. Discharge Disposition: Home or Self Care 09/21/2023 12:53 PM INSOLE TACK PULLER HAND - 09/21/2023 11:59 PM INSOLE TACK PULLER HAND Hospital Encounter Department of Radiation Oncology in [address] [address] Pastora Wayne M.D. Discharge Disposition: Home or Self Care 09/20/2023 12:51 PM INSOLE TACK PULLER HAND - 09/20/2023 11:59 PM INSOLE TACK PULLER HAND Hospital Encounter Department of Radiation Oncology in [address] [address] Pastora Wayne M.D. Discharge Disposition: Home or Self Care 09/19/2023 12:53 PM INSOLE TACK PULLER HAND - 09/19/2023 3:51 PM INSOLE TACK PULLER HAND Hospital Encounter Department of Radiation Oncology in [address] [address] Pastora Wayne M.D. 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 Discharge Disposition: Home or Self Care 09/18/2023 12:35 PM INSOLE TACK PULLER HAND - 09/18/2023 1:34 PM INSOLE TACK PULLER HAND Hospital Encounter Department of Radiation Oncology in [address] [address] Pastora Wayne M.D. 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 Discharge Disposition: Home or Self Care 09/15/2023 12:25 PM INSOLE TACK PULLER HAND - 09/15/2023 11:59 PM INSOLE TACK PULLER HAND Hospital Encounter Department of Radiation Oncology in [address] [address] Pastora Wayne M.D. 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 Discharge Disposition: Home or Self Care 09/14/2023 12:31 PM INSOLE TACK PULLER HAND - 09/14/2023 11:59 PM INSOLE TACK PULLER HAND Hospital Encounter Department of Radiation Oncology in [address] [address] Pastora Wayne M.D. Discharge Disposition: Home or Self Care 09/13/2023 10:27 AM INSOLE TACK PULLER HAND - 09/13/2023 1:25 PM INSOLE TACK PULLER HAND Hospital Encounter Department of Radiation Oncology in [address] [address] Pastora Wayne M.D. 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 Discharge Disposition: Home or Self Care 09/12/2023 12:23 PM INSOLE TACK PULLER HAND - 09/12/2023 11:59 PM INSOLE TACK PULLER HAND Hospital Encounter Department of Radiation Oncology in [place], [place] [address] [place] [phone] Pastora Wayne M.D. Discharge Disposition: Home or Self Care 09/11/2023 11:49 AM INSOLE TACK PULLER HAND - 09/11/2023 11:59 PM INSOLE TACK PULLER HAND Hospital Encounter Department of Radiation Oncology in [address] [address] Pastora Wayne M.D. Discharge Disposition: Home or Self Care from Last 3 Months Family History Medical History Relation Name Comments Breast cancer Paternal Cousin Relation Name Status Comments Paternal Cousin Other Social History Tobacco Use Types Packs/Day Years Used Date Smoking Tobacco: Never Smokeless Tobacco: Never Tobacco Cessation:Counseling Given: Not Answered [facility] Utilities Answer Date Recorded In the past 12 months has th e [employer], gas, oil, or water [employer] threatened to shut off services in your [...] your living situation today? I have a [place] place to live 09/19/2023 Sex and Gender Information Value Date Recorded Sex Assigned at Female 09/19/2023 1:29 PM INSOLE TACK PULLER HAND Gender Identity Female 09/19/2023 1:31 PM INSOLE TACK PULLER HAND Sexual Orientation Straight 09/19/2023 1: 31 PM INSOLE TACK PULLER HAND Last Filed Vital Signs Vital Sign Reading Time Taken Comments Blood Pressure 132/76 08/30/2023 12:55 PM INSOLE TACK PULLER HAND Pulse 68 08/30/2023 12:55 PM INSOLE TACK PULLER HAND Temperature 36.1 ??C (97 ??F) 09/19/2023 1:32 PM INSOLE TACK PULLER HAND Respiratory Rate - - Oxygen Saturation - - Inhaled Oxygen Concentration - - Weight 88.4 kg (194 lb 14.2 oz) 024 10:46 AM INSOLE TACK PULLER HAND Height - - Body Mass Index - - Plan of Treatment Health Maintenance Due Date Last Done Comments CT Colonography 1961 Cervical Cancer Screening 1961 Cologuard 1961 Colonoscopy 1961 Colorectal Cancer Screening 1961 FIT 1961 Fasting Glucose for Diabetes Screening 1961 HIV Screening 1961 Hepatitis C Screening 1961 Lipid (Cholesterol) Screening 1961 Pneumococcal vaccine (0-64 years) (1 of 2 - PCV) 1967 Depression Screening (Annual PHQ-2) 08/28/2023 Mammogram 06/06/2024 06/06/2023, 05/28, 05/18/2023, Additional history exists DTaP,Tdap,and Td Vaccines (3 - Td or Tdap) 02/27/2033 02/27/2023, 08/17/2012 Zoster Vaccines Completed 05/15/2020, 02/07/2020 COVID-19 Vaccine Completed 05/26/2023, , 12/03/2021, Additional history exists Influenza Vaccine Completed 05/26/2023, , 06/08/2022, Additional history exists HPV Vaccines Aged Out No longer eligi ble based on patient's age to complete this topic Procedures Procedure Name Priority Date/Time Associated Diagnosis Comments ARIA COURSE COMPLETE TREATMENT INFORMATION Routine 09/29/2023 1:24 PM INSOLE TACK PULLER HAND ARIA DAILY TREATMENT INFORMATION Routine 09/29/2023 1:24 PM INSOLE TACK PULLER HAND ARIA DAILY TREATMENT INFORMATION Routine 09/28/2023 1:07 PM INSOLE TACK PULLER HAND ARIA DAILY TREATMENT INFORMATION Routine 09/27/2023 1:10 PM INSOLE TACK PULLER HAND ARIA DAILY TREATMENT INFORMATION Routine 09/26/2023 1:16 PM INSOLE TACK PULLER HAND ARIA DAILY TREATMENT INFORMATION Routine 09/25/2023 1:20 PM INSOLE TACK PULLER HAND ARIA DAILY TREATMENT INFORMATION Routine 09/22/2023 1:18 PM INSOLE TACK PULLER HAND ARIA DAILY TREATMENT INFORMATION Routine 09/21/2023 1:07 PM INSOLE TACK PULLER HAND ARIA DAILY TREATMENT INFORMATION Routine 09/20/2023 1:17 PM INSOLE TACK PULLER HAND ARIA DAILY TREATMENT INFORMATION Routine 09/19/2023 1:05 PM INSOLE TACK PULLER HAND ARIA DAILY TREATMENT INFORMATION Routine 09/18/2023 12:42 PM INSOLE TACK PULLER HAND ARIA DAILY TREATMENT INFORMATION Routine 09/15/2023 12:47 PM INSOLE TACK PULLER HAND ARIA DAILY TREATMENT INFORMATION Routine 09/14/2023 12:47 PM INSOLE TACK PULLER HAND ARIA DAILY TREATMENT INFORMATION Routine 09/13/2023 10:39 AM INSOLE TACK PULLER HAND ARIA DAILY TREATMENT INFORMATION Routine 09/12/2023 1:00 PM INSOLE TACK PULLER HAND ARIA DAILY TREATMENT INFORMATION Routine 09/11/2023 12:28 PM INSOLE TACK PULLER HAND ARIA COURSE COMPLETE TREATMENT INFORMATION Routine 09/06/2023 12:40 PM INSOLE TACK PULLER HAND from Last 3 Months Results * Aria Course Complete Treatment Information (09/29/2023 1:24 PM INSOLE TACK PULLER HAND) Only the most recent of2 resultswithin the time period is included. Course ID 1xBreast TORIBIO ARIA Course Start Date 4 09:06 INSOLE TACK PULLER HAND TORIBIO ARIA Course End Date 4 13:16 INSOLE TACK PULLER HAND TORIBIO ARIA First Treatment Date 4 12:27 INSOLE TACK PULLER HAND TORIBIO ARIA Last Treatment Date 4 13:24 INSOLE TACK PULLER HAND TORIBIO ARIA Treatment Elapsed Days 18 TORIBIO ARIA Reference Point [id number] TORIBIO ARIA Dosage Given to Date cGy 4005 TORIBIO ARIA Plan ID [id number] TORIBIO ARIA Fractions Treated to Date 15 TORIBIO ARIA Planned Total Fractions 15 TORIBIO ARIA Prescribed Dose Per Fraction 267 TORIBIO ARIA Prescription Dose in cGy 4005 TORIBIO ARIA Plan Primary Reference Point [id number] TORIBIO ARIA 09/29/2023 1:24 PM INSOLE TACK PULLER HAND Provider Not In System RADIATION ONCOLOG Y ORDERABLES MALU GRANGER na * Aria Daily Treatment Information (09/29/2023 1:24 PM INSOLE TACK PULLER HAND) Only the most recent of15 resultswithin the time period is included. Course ID 1xBreast TORIBIO ARIA Course Start Date 4 09:06 INSOLE TACK PULLER HAND TORIBIO ARIA First Treatment Date 4 12:27 INSOLE TACK PULLER HAND TORIBIO ARIA Last Treatment Date 4 13:24 INSOLE TACK PULLER HAND TORIBIO ARIA Treatment Elapsed Days 18 TORIBIO ARIA Reference Point [id number] TORIBIO ARIA Dosage Given to Date cGy 4005 TORIBIO ARIA Session Dosage Given 267 TORIBIO ARIA Plan ID [id number] TORIBIO ARIA Fractions Treated to Date 15 TORIBIO ARIA Planned Total Fractions 15 TORIBIO ARIA Prescribed Dose Per Fraction 267 TORIBIO ARIA Prescription Dose in cGy 4005 TORIBIO ARIA Plan Primary Reference Point [id number] TORIBIO ARIA 09/29/2023 1:24 PM INSOLE TACK PULLER HAND Provider Not In System RADIATION ONCOLOG Y ORDERABLES MALU erwin from Last 3 Months
--- OUTSIDE RECORDS SUMMARY | 2023-12-04 06:33 | XMS_ITS | Clinical Summary ---
Author Name Unknown Organization [facility] Address [address], [place] [address] Care Team Providers Care Licensing Court Magistrate Name Role Phone Pcp, Pt Declines MD Primary Care Provider [phone] Source Comments You are receiving this document as you are listed as the primary care provider,follow-up provider, or the patient has been referred to you for consultation.This is in compliance with the Medicare and[facility] EHR Incentive Program,which states Providers who transition their patient to another setting of careor provider of care or refers their patient to another provider of care shouldprovide summary care record for each transition of care or referral. [facility] Allergies No known active allergies Medications Medication Sig Dispensed Refills Start Date End Date Status naproxen sodium (ANAPROX) 220 MG tablet Take 220 mg by mouth two times a day with meals. Active Active Problems No known active problems Social History Tobacco Use Types Packs/Day Years Used Date Smoking Tobacco: Never Sex and Gender Information Value Date Recorded Sex Assigned at Not on file Gender Identity Not on file Sexual Orientation Not on file Last Filed Vital Signs Vital Sign Reading Time Taken Comments Blood Pressure - - Pulse - - Temperature - - Respiratory Rate - - Oxygen Saturation - - Inhaled Oxygen Concentration - - Weight 82.6 kg (182 lb) 10/03/2016 11:22 AM CRYPTOLOGIC SUPPORT SPECIALIST Height 165.1 cm (5' 5) 10/03/2016 11:22 AM CRYPTOLOGIC SUPPORT SPECIALIST Body Mass Index 30.29 10/03/2016 11:22 AM CRYPTOLOGIC SUPPORT SPECIALIST Plan of Treatment Health Maintenance Due Date Last Done Comments Cervical Cancer Screening Due 1961 Colon Cancer Screening Plan Due 1961 Hep C Screening (Preventive Services) 1961 Mammogram 1961 HIV Screening (Preventive Services) 1977 Adult Preventive Visit 1979 Cholesterol 2006 DTaP/Tdap/Td (2 - Tdap) 08/17/2022 08/17/2012 COVID-19 Vaccine (2 - season) 2023 11/13/2020 Influenza (#1) 2023 05/27/2020, 1009/2018, 04/30/2017, Additional history exists Zoster/Shingles Completed 05/15/2020, 02/07/2020 HepA Aged Out No longer eligi ble based on patient's age to complete this topic HepB Aged Out No longer eligi ble based on patient's age to complete this topic Hib Aged Out No longer eligi ble based on patient's age to complete this topic IPV (Polio) Aged Out No longer eligi ble based on patient's age to complete this topic MCV4 Aged Out No longer eligi ble based on patient's age to complete this topic Pneumococcal Aged Out No longer eligi ble based on patient's age to complete this topic Care Teams Licensing Court Magistrate Relationship Specialty Start Date End Date Pcp, [place] [address] PCP - General 01/14/19
--- OUTSIDE RECORDS SUMMARY | 2023-12-04 06:33 | XMS_ITS | Clinical Summary ---
Author Name Unknown Organization [facility] Address [address] [place] [id number] Care Team Providers Care Electronic Warfare Officer Name Role Phone Md, Not Listed Primary [...] Comments Blood Pressure 112/74 08/09/2023 12:30 PM FOLDER INSPECTOR Pulse 70 08/09/2023 12:30 PM FOLDER INSPECTOR Temperature 36.8 ??C (98.2 ??F) 08/09/2023 11:[address] Respiratory Rate 12 08/09/2023 12:30 PM FOLDER INSPECTOR Oxygen Saturation 97% 08/09/2023 12:30 PM FOLDER INSPECTOR Inhaled Oxygen Concentration - - Weight - - Height 170.2 cm (5' 7) 08/07/2023 4:18 PM FOLDER INSPECTOR Body Mass Index - - Plan of Treatment Health Maintenance Due Date Last Done Comments Colonoscopy 1961 Hepatitis C Screening 1961 Lipid Screening 1961 Pap Smear 1961 Anxiety Screening (ETHAN-2) 1962 Depression Assessment (PHQ-2) 1962 RSV 60+ Yrs (1 - 1-dose 60+ series) 2021 COVID-19 Vaccine (2022-24 season) 2023 Influenza Vaccine (Season Ended) 2024 06/08/2022, 05/27/2020, 05/29/2019, Additional history exists Yearly Review of HCD 07/09/2024 07/10/2023 Adult Tetanus Booster 02/27/2033 02/27/2023, 012 Zoster Vaccine Completed 05/15/2020, 02/07/2020 Pneumococcal <65 Aged Out No longer e ligible based on patient's age to complete this topic Care Teams Electronic Warfare Officer Relationship Specialty Start Date End Date , Not Listed no address PCP - General Family Medicine 08/08/23
--- OUTSIDE RECORDS SUMMARY | 2023-12-04 06:34 | XMS_ITS | Encounter Summary ---
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 [address] [place] [address] [facility] Referral ID Status Reason Start Date Expiration Date V isits Requested Visits Authorized [id number] Authorized 09/11/2023 08/03/2024 19 19 Encounter Details Date Type Department Care Team (Latest Contact Info) Description 09/28/2023 12:21 PM IT APPLICATIONS ANALYST - 09/28/2023 11:59 PM [facility] Hospital Encounter Department of Radiation Oncology in [place], [place] [address] [place] [phone] Pastora Wayne M.D. [address] [place] [phone] Discharge Disposition: Home or Self Care Social History Tobacco Use Types Packs/Day Years Used Date Smoking Tobacco: Never Smokeless Tobacco: Never [facility] Utilities Answer Date Recorded In the past 12 months has e electric, gas, oil, or water company threatened [...] Date Recorded Employment status Working with temporary [employer] 09/19/2023 Housing Stability Answer Date Recorded What is your living situation today? I have a [facility] place to live 09/19/2023 Sex and Gender Information Value Date Recorded Sex Assigned at Female 09/19/2023 1:29 PM IT APPLICATIONS ANALYST Gender Identity Female 09/19/2023 1:31 PM IT APPLICATIONS ANALYST Sexual Orientation Straight 09/19/2023 1: 31 PM IT APPLICATIONS ANALYST documented as of this encounter Medications at Time of Discharge Medication Sig Dispensed Refills Start Date End Date HYDROcodone-acetaminoph en (NORCO) 5-325 mg per tablet Take 1 tablet by mouth every 6 (six) hours as needed for pain. 0 06/06/2023 mometasone (ELOCON) 0.1 % cream Apply 1 Application topically daily. Apply to skin within the treatment field. 45 g 0 08/31/2023 senna 8.6 mg tablet TAKE 1 TABLET BY MOUTH EVERY DAY NEEDED FOR CONSTIPATION. 0 06/06/2023 documented as of this encounter Plan of Treatment Not on file documented as of this encounter Visit Diagnoses Not on filedocumented in this encounter
--- OUTSIDE RECORDS SUMMARY | 2023-12-04 06:34 | XMS_ITS | Encounter Summary ---
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 [address] [place] [address] [facility] Referral ID Status Reason Start Date Expiration Date V isits Requested Visits Authorized [id number] Authorized 09/11/2023 08/03/2024 19 19 Encounter Details Date Type Department Care Team (Latest Contact Info) Description 09/25/2023 12:49 PM NATURAL GAS TREATING UNIT OPERATOR - 09/25/2023 11:59 PM [facility] Hospital Encounter Department of Radiation Oncology in [place], [place] [address] [place] [phone] Pastora Wayne M.D. [address] [place] [address] Discharge Disposition: Home or Self Care Social History Tobacco Use Types Packs/Day Years Used Date Smoking Tobacco: Never Smokeless Tobacco: Never [facility] Utilities Answer Date Recorded In the [...] Date Recorded Employment status Working with temporary [employer] 09/19/2023 Housing Stability Answer Date Recorded What is your living situation today? I have a [facility] place to live 09/19/2023 Sex and Gender Information Value Date Recorded Sex Assigned at Female 09/19/2023 1:29 PM NATURAL GAS TREATING UNIT OPERATOR Gender Identity Female 09/19/2023 1:31 PM NATURAL GAS TREATING UNIT OPERATOR Sexual Orientation Straight 09/19/2023 1: 31 PM NATURAL GAS TREATING UNIT OPERATOR documented as of this encounter Medications at [...]
--- OUTSIDE RECORDS SUMMARY | 2023-12-04 06:34 | XMS_ITS | Encounter Summary ---
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 [address] [place] [address] [facility] Region Referral ID Status Reason Start Date Expiration Date V isits Requested Visits Authorized [id number] Authorized 08/04/2023 08/03/2024 10 10 Encounter Details Date Type Department Care Team (Latest Contact Info) Description 09/26/2023 12:52 PM EDUCATION ANALYST - 09/26/2023 4:16 PM EDUCATION ANALYST Hospital Encounter Department of Radiation Oncology in [place], [place] [address] [place] [phone] Pastora Wayne M.D. 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 I have a [facility] place to live 09/19/2023 Sex and Gender Information Value Date Recorded Sex Assigned at Female 09/19/2023 1:29 PM EDUCATION ANALYST Gender Identity Female 09/19/2023 1:31 PM EDUCATION ANALYST Sexual Orientation Straight 09/19/2023 1: 31 PM EDUCATION ANALYST documented as of this encounter Medications [...] 0 06/06/2023 documented as of this encounter Progress Notes * Pastora Wayne M.D. - 09/26/2023 1:30 PM CST ATTESTATION FOR MANAGEMENT VISIT I saw and evaluated the patient and participated in the yan portions of the service as noted below.I reviewed the documentation of Ms. Shi Andrade RN and agree with the findings and plan. The patient appears well on exam. We will continue with radiation as planned and we anticipate that she willcomplete treatments this week. We anticipate that Rocio Oconnor will complete radiation treatment as planned without interruptions. The course of treatment was tolerated well. The patient experienced toxicities of grade 1 dermatitis during radiation treatment. Follow-up will be with Dr. Sharpe; we will see her again as needed. Pastora Wayne M.D., 09/26/2023 SUBJECTIVE CHIEF COMPLAINT/REASON FOR VISIT Evaluation for side effects while receiving radiation treatment for 1. 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 HISTORY OF PRESENT ILLNESS Rocio Oconnor is a 63 y.o. female with Multifocal right sided breast cancer, pT1a(m) cNX cM0, G2, ER+, SD+, HER2-, Ki-67=13%, s/p lumpectomy with positive DCIS margin. Treatment Course: 1xBreast Plan ID Fractions Dose / Fraction (cGy) Dose Treated (cGy) Dose Planned (cGy) First Treatment Last Treatment Elapsed Days [id number] 09/11/2023 09/26/2023 Course Summary 09/11/2023 09/26/2023 15 The patient was seen and examined today with Dr. Wayne. The patient that she is applying mometasone ointment twice a day to right side of right breast and Aquaphor twice a day to right side of the right breast. Patient denies any new symptoms or concerns. PATIENT REPORTED SYMPTOM SCREEN: FATIGUE (Scale: 0 = no fatigue; 10 = worst fatigue you can imagine): PAIN (Scale: 0 = no pain; 10 = worst pain you can imagine): OVERALL QUALITY OF LIFE (Scale: 0 = as bad as can be; 10 = as good as can be): OBJECTIVE There were no vitals taken for this visit. PHYSICAL EXAMINATION General: Alert and oriented, in no apparent distress. Skin: brisk erythema noted right nipple and area around right nipple and mild erythema to right inframammary fold. Moderate dryness noted to right nipple region. Mild erythema to upper and lower aspect of right breast. No areas of moist skin desquamation. ASSESSMENT / PLAN #1 Multifocal right sided breast cancer, pT1a(m) cNX cM0, G2, ER+, SD+, HER2-, Ki-67=13%, s/p lumpectomy with positive DCIS margin, re-excision of the right breast margin and right sentinel lymph node biopsy on July 18, 2023 #2 Right oncoplastic breast reduction and left balancing breast reduction on August 09, 2023 #3 Radiation to right breast initiated on September 11, 2023; anticipated date of completion 2023. The patient is tolerating radiation treatment well overall. I recommended that patient apply mometasone ointment twice a day to treatment area for 2 weeks; wait 20 minutes and then apply Aquaphor 3-4a day to treatment field area. I reviewed Moist Skin Reaction pamphlet with patient today. I provided patient with samples of skin care products today and reviewed ordering information with patient. Skin changes should start to heal in 2-3 weeks. Disability paperwork has been faxed to [facility]. Dr. Sharpe will see patient in follow up in September 2023. We will keep Radiation Oncology follow up to an as needed basis only. Radiation Oncology [facility] can be contacted at anytime for any questions or concerns. Toxicities reviewed with Dr. Wayne today. Signed by: Shi Andrade R.N. 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
--- OUTSIDE RECORDS SUMMARY | 2023-12-04 06:34 | XMS_ITS | Encounter Summary ---
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 [address] [place] [address] [facility] Referral ID Status Reason Start Date Expiration Date V isits Requested Visits Authorized [id number] Authorized 09/11/2023 08/03/2024 19 19 Encounter Details Date Type Department Care Team (Latest Contact Info) Description 09/14/2023 12:31 PM TRANSMITTER CHIEF - 09/14/2023 11:59 PM [facility] Hospital Encounter Department of Radiation Oncology in [place], [place] [address] [place] [phone] Pastora Wayne M.D. [address] [place] [address] Discharge Disposition: Home or Self [...] Date Recorded Employment status Working with temporary [employer] 09/19/2023 Housing Stability Answer Date Recorded What is your living situation today? I have a [facility] place to live 09/19/2023 Sex and Gender Information Value Date Recorded Sex Assigned at Female 09/19/2023 1:29 PM TRANSMITTER CHIEF Gender Identity Female 09/19/2023 1:31 PM TRANSMITTER CHIEF Sexual Orientation Straight 09/19/2023 1: 31 PM TRANSMITTER CHIEF documented as of this encounter Medications at [...]
--- OUTSIDE RECORDS SUMMARY | 2023-12-04 06:34 | XMS_ITS | Encounter Summary ---
Author Name Unknown Organization [facility] Address [address] [place] [address] Care Team Providers Care Plastic Cablemaking Machine Operator Name Role Phone Unavailable Primary Care Provider Unavailabl e Reason for Referral * Specialty Diagnoses / Procedures Referred By Contneftali t Referred To Contact Estella Summers APRN, C.N.P., D.N.P. [address] [place] [phone] [facility] Region Referral ID Status Reason Start Date Expiration Date Visits Re quested Visits Authorized SPORTATION ENGINEER Encounter Details Date Type Department Care Team (Latest Contact Info) Description 09/15/2023 12:25 PM TRANSPORTATION ENGINEER - 09/15/2023 11:59 PM TRANSPORTATION ENGINEER Hospital Encounter Department of Radiation Oncology in [place], [place] [address] [place] [phone] Pastoar Wayne M.D. [address] [place] [phone] Shi Andrade R.N. 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
--- OUTSIDE RECORDS SUMMARY | 2023-12-04 06:34 | XMS_ITS | Encounter Summary ---
Author Name Unknown Organization [facility] Address [address] [place] [id number] Care Team Providers Care Investigator Internal Revenue Name Role Phone Unavailable Primary Care Provider Unavailabl e Reason for Referral * Outpatient (Routine) - Closed Specialty Diagnoses / Procedures Referred By Helene frank Referred To Contact Radiation Oncology Pastora Wayne M.D. [address] [place] [address] [facility] Region Referral ID Status Reason Start Date Expiration Date Visits Re quested Visits Authorized [id number] Closed 08/04/2023 08/03/2026 1 1 Scheduling Instructions YIG, 2-3 weeks after the last surgery for a follow-up and simulation E CUTTER Reason for Visit * Outpatient (Routine) - Closed Specialty Diagnoses / Procedures Referred By Helene frank Referred To Contact Radiation Oncology Pastora Wayne M.D. [address] [place] [address] [facility] Region Referral ID Status Reason Start Date Expiration Date Visits Re quested Visits Authorized [id number] Closed 08/04/2023 08/03/2026 1 1 Encounter Details Date Type Department Care Team (Latest Contact Info) Description 08/30/2023 12:48 PM STAVE CUTTER - 08/31/2023 1:16 PM STAVE CUTTER Hospital Encounter Department of Radiation Oncology in [place], [place] [address] [place] [address] Pastora Wayne M.D. [address] [place] [phone] Malignant Neoplasm Of Breast Upper Inner Quadrant Female Right (HCC) (Primary Dx) Social History Tobacco Use Types Packs/Day Years Used Date Smoking Tobacco: Never Smokeless Tobacco: Never Nutrition Answer Date Recorded Nutrition: EVOO Fat Source Unknown 06/30 Nutrition: Servings of Fruits/Vegetables per Day Not on file 06/30/2023 Dental Answer Date Recorded Dental: Regular Dentist Unknown 06/30/20 Sex and Gender Information Value Date Recorded Sex Assigned at Female 09/19/2023 1:29 PM STAVE CUTTER Gender Identity Female 09/19/2023 1:31 PM STAVE CUTTER Sexual Orientation Straight 09/19/2023 1: 31 PM STAVE CUTTER documented as of this encounter Last Filed Vital Signs Vital Sign Reading Time Taken Comments Blood Pressure 132/76 08/30/2023 12:55 PM STAVE CUTTER Pulse 68 08/30/2023 12:55 PM STAVE CUTTER Temperature 36.4 ??C (97.5 ??F) 08/30/2023 1 2:55 PM STAVE CUTTER Respiratory Rate - - Oxygen Saturation - - Inhaled Oxygen Concentration - - Weight 88.4 kg (194 lb 14.2 oz) 024 12:55 PM STAVE CUTTER Height - - Body Mass Index - - documented in this encounter Medications at Time of Discharge [...] as of this encounter Progress Notes * Bella Mora P.A.-C., M.S. - 08/30/2023 1:00 PM CST SUBJECTIVE DIAGNOSIS 1. 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 HISTORY OF PRESENT ILLNESS Ms. Rocio Oconnor is a 62-year-old female with multifocal invasive ductal carcinoma of the right breast. Her oncologic history is as follows: Oncology History Malignant Neoplasm Of Breast Upper Inner Quadrant Female Right (HCC) 05/12/2023 Critical Imaging Routine bilateral screening mammogram demonstrated focal asymmetry density retroareolar plane 5 cm from the nipple; no suspicious findings in the left breast 05/18/2023 Critical Imaging Focused diagnostic mammogram of the right breast demonstrated persistent nodular density within theupper inner quadrant of the right breast Targeted ultrasound demonstrated a 1 x 0.5 x 1.1 cm hypoechoic nodule at 1 o'clock 4 cm from the nipple. 05/22/2023 Biopsy/Pathology Final Diagnosis A) RIGHT BREAST, 1:00, 4 CM FROM NIPPLE, ULTRASOUND-GUIDED CORE BIOPSY: 1. Ductal carcinoma in situ (DCIS), cannot rule out encapsulated papillary carcinoma a. Subtype: Cribriform and Papillary b. Nuclear grade: 2 of 3 c. Calcifications: Are not associated with DCIS d. Necrosis: Is not associated with DCIS 2. Negative for invasive tumor 3. Breast Ancillary Testing: a. Estrogen receptor: Positive (91-100%, strong staining by manual morphometry) 06/06/2023 Surgery and Procedures Right breast lumpectomy was performed by Dr. Ariadna Acosta. Final Diagnosis A) RIGHT BREAST, WIRE-LOCALIZED LUMPECTOMY: 1. Multifocal invasive ductal carcinoma, Leo grade II of III a. Sizes: 4 mm, 1.8 mm, and multiple microinvasive foci (<1 mm each) 2. Extensive ductal carcinoma in situ (DCIS), nuclear grade 2, Cribriform, Solid, and Papillary type a. Size: At least 17 mm b. Core biopsy site is present in association 3. Margins: a. Invasive carcinoma is 1 mm from the lateral margin b. DCIS is involves the lateral margin (focally), and is <1 mm from the inferior and anterior margins 4. Breast Ancillary Testing: a. Hormone Receptors: Estrogen receptor: Positive (99%, strong staining) Progesterone receptor: Positive (87%, moderate staining) b. HER2 by IHC: Negative (1+ by manual morphometry) c. Ki-67: 13% Final Diagnosis A) BREAST, RIGHT, ANTERIOR MARGIN, ORIENTED RE-EXCISION: 1. Ductal carcinoma in situ (DCIS), grade 2, micropapillary type, single < 1 mm microscopic focus 2. Margin negative (2 mm to margin) B) BREAST, RIGHT, POSTERIOR MARGIN, ORIENTED RE-EXCISION: 1. Ductal carcinoma in situ (DCIS), grade 2, solid / cribriform type, single 1 mm microscopic focus 2. Margin negative (1 mm to margin) SYNOPTIC REPORTING SPECIMEN Procedure: Excision (less than total mastectomy) Specimen Laterality: Right TUMOR Tumor Site: Clock position : 1 o'clock Tumor Site: Distance from nipple (Centimeters): 4 cm Histologic Type: Invasive carcinoma of no special type (ductal) Histologic Grade ([place] Histologic Score): Glandular (Acinar) / Tubular Differentiation: Score 3 Nuclear Pleomorphism: Score 2 Mitotic Rate: Score 1 Overall Grade: Grade 2 (scores of 6 or 7) Tumor Size: Greatest dimension of largest invasive focus (Millimeters): 4 mm Tumor Focality: Multiple foci of invasive carcinoma Number of Foci: At least: 4 (4 mm, 1.8 mm, and at least 2 microinvasive foci) Ductal Carcinoma In Situ (DCIS): Present : Positive for extensive intraductal component (EIC) Size (Extent) of DCIS: Estimated size (extent) of DCIS is at least (Millimeters): 17 mm Architectural Patterns: Cribriform Architectural Patterns: Papillary Architectural Patterns: Solid Nuclear Grade: Grade II (intermediate) Necrosis: Present, central (expansive comedo necrosis) Lymphovascular Invasion: Not identified Treatment Effect in the Breast: No known presurgical therapy MARGINS Margin Status for Invasive Carcinoma: All margins negative for invasive carcinoma Distance from Invasive Carcinoma to Closest Margin: 1 mm Closest Margin(s) to Invasive Carcinoma: Lateral Margin Status for DCIS: DCIS present at margin Margin(s) Involved by DCIS: Lateral: Focal (2 foci over a 3 mm span) Distance from DCIS to Anterior Margin: Less than: 1 mm Distance from DCIS to Inferior Margin: Less than: 1 mm REGIONAL LYMPH NODES Regional Lymph Node Status: Not applicable PATHOLOGIC STAGE CLASSIFICATION (pTNM, AJCC 8th Edition) TNM Descriptors: m (multiple foci of invasive carcinoma) pT Category: pT1a pN Category: pN not assigned (no nodes submitted or found) Estrogen Receptor (ER) Status: Positive (greater than 10% of cells demonstrate nuclear positivity) Percentage of Cells with Nuclear Positivity: 99 % Average Intensity of Staining: Strong Progesterone Receptor (PgR) Status: Positive Percentage of Cells with Nuclear Positivity: 87 % Average Intensity of Staining: Moderate HER2 by Immunohistochemistry: Negative (Score 1+) Ki-67 Percentage of Positive Nuclei: 13 % 06/09/2023 Other Postop follow up with Dr. Acosta. Due to the findings of multifocal disease for both DCIS and invasive ductal carcinoma and positive DCIS margin, she recommended obtaining a breast MRI for further evaluation with the possibility of needing additional biopsies and surgery. 06/22/2023 Critical Imaging Bilateral breast MRI demonstrated postsurgical changes of the right breast. Postoperative 4.4 x 6.3cm hematoma at the lumpectomy site. There is mild surrounding non-mass enhancement which may represent post biopsy changes and/or residual tumor. There is no suspicious enhancing mass seen in either breast. There are no abnormal axillary lymph nodes. 06/29/[address] Acosta recommended additional surgery to pursue negative margins. They discussed lumpectomy versus mastectomy along with sentinel lymph node biopsy, with possible lymph node dissection. Patient would like to meet with Radiation Oncology to help decide if she should pursue lumpectomy versus mastectomy. Her case will be discussed at [facility] tumor board 07/06/2023 Tumor Board Her case was reviewed at Cancer Conference. No indication for OncotypeDX testing. Surgical options include either lumpectomy vs mastectomy with sentinel lymph node assessment. Patient will meet with Radiation Oncology and Plastic Surgeon to discuss options further. 07/18/2023 Surgery and Procedures Re-excision and right axillary sentinel lymph node biopsy was performed. A) RIGHT BREAST, LATERAL MARGIN, RE-EXCISION: 1. Ductal carcinoma in situ (DCIS), nuclear grade 2, cribriform, solid, micropapillary and papillary types a. Size: 24 mm b. Margin: Positive (see part C for final margin status) 2. Previous procedure site changes 3. Negative for invasive malignancy B) RIGHT AXILLARY SENTINEL LYMPH NODE, EXCISION: 1. Negative for metastatic malignancy in one lymph node (0/1) C) RIGHT BREAST, LATERAL MARGIN, RE-EXCISION: 1. Benign breast tissue with proliferative fibrocystic changes 2. Negative for atypia and malignancy (margin negative) 07/31/2023 Other Medical Oncology consultation with Dr. Sharita Sharpe. Will not obtain Oncotype recurrence score. Order placed for Arimidex, plan to start in mid-August. 08/09/2023 Surgery and Procedures PROCEDURE: Right oncoplastic breast reduction Left balancing breast reduction SURGEON: Tarik Nunes MD Final Diagnosis A. Breast, right, oncoplastic reduction mammoplasty - Benign breast tissue with previous surgical site changes. No atypia or malignancy. B. Breast, left, reduction mammoplasty - Benign breast tissue with no pathologic alterations. No atypia or malignancy. C. Breast, additional right oncoplastic, reduction mammoplasty - Benign breast tissue with no pathologic alterations. No atypia or malignancy. 09/11/2023 - Radiation Therapy Radiation Therapy Treatment Details (Noted on 08/04/2023) Site: Right Breast Technique: No technique specified Goal: Curative Planned Treatment Start Date: 09/11/2023 INTERVAL HISTORY: The patient was seen and examined today with Dr. Wayne. The patient reports doing well overall. She rates her fatigue as 1/10 in severity. She reports breast tenderness following her recent surgeries. She also reports itching under the right breast. She is currently use an rogelio bandage around her chest for extra support. She reports mild swelling of the breast, but denies arm lymphedema. She denies any arm range of motion limitations. REVIEW OF SYSTEMS Review of systems was negative except as documented above. PATIENT REPORTED SYMPTOM SCREEN: FATIGUE (Scale: 0 = no fatigue; 10 = worst fatigue you can imagine): 1 PAIN (Scale: 0 = no pain; 10 = worst pain you can imagine): 1 OVERALL QUALITY OF LIFE (Scale: 0 = as bad as can be; 10 = as good as can be): 8 PHYSICAL EXAMINATION General: Alert and oriented, in no apparent distress. ASSESSMENT / PLAN #1 Multifocal right sided breast cancer, pT1a(m) cNX cM0, G2, ER+, NH+, HER2-, Ki-67=13%, s/p lumpectomy with positive DCIS margin, re-excision of the right breast margin and right sentinel lymph node biopsy on July 18, 2023 #2 Right oncoplastic breast reduction and left balancing breast reduction on August 09, 2023 I had a discussion with the patient regarding her breast cancer diagnosis. We reviewed her oncologic history since her last visit here, as detailed above. Since her consultation with Dr. Wayne, the patient has had re-excision of the right breast margin and right sentinel lymph node biopsy as well as bilateral breast reduction surgeries. We also had a detailed discussion regarding the risks, benefits, and alternatives of radiotherapy in this setting. Dr. Wayne offered radiation therapy to the right breast in 5 or 15 fractions. I reviewed the logistics as well as the acute side effects of radiotherapy, for a complete listing of these, please see Dr. Wayne' consultation note from July 07, 2023. The use of mometasone cream and a moisturizing lotion applied to the skin within the treatment field during treatment was discussed. A prescription for mometasone cream will be sent to her preferred pharmacy. The patient's questions were answered to her verbalized satisfaction. After discussion, the patient verbally stated that she would like to proceed with radiation treatment. She signed consent. She is scheduled for CT simulation today. She will be scheduled to initiate radiation treatment on Monday, September 11, 2023. Dr. Wayne also met with the patient today, please see her attestation for details. The patient was provided with our contact information. She will contact us with questions or concerns. She verbally expressed her understanding of the plan. The patient also asked about insurance coverage [facility] Our DOS staff provided her with contact information for the department's patient access and qa manager in [place] to further assist with answering her questions. EDUCATION: Ready to learn, no apparent learning barriers were identified; learning preferences include listening. Explained diagnosis and treatment plan; patient expressed understanding of the content. CONSENT: Discussed the risks, benefits, alternatives, and the necessity of other members of the healthcare team participating in the procedure. All questions answered and consent given. I personally spent 25 minutes in care of the patient today. Time includes both non face to face andface to face patient care. Signed by: Bella Mora P.A.-C., M.S. 08/31/2023 9:21 AM STAVE CUTTER [facility] [address] [place] [address] E CUTTER Associated attestation - Pastora Wayne M.D. - 08/31/2023 1:15 PM STAVE CUTTER RADIATION ONCOLOGY FOLLOW-UP VISIT I saw and evaluated the patient and participated in the yan portions of the service. I reviewed thedocumentation of Ms. Bella Mora PA-C, MS and agree with the findings and plan. Ms. Oconnor is a very pleasant 62 year old female with a recently resected multifocal right sided breast cancer with DCIS at the margin who underwent re- excision with 24mm of additional DCIS, G2 found,negative margins and negative SLN and mammoplasty reduction who presents now to discuss radiation options. On exam she appears well. She has well healed mammoplasty incisions on both breasts. Her incisions are very well healed except for at the inframammary fold laterally and inferiorly at the T of her joining incisions with about a 1-2mm slight dehiscence. No worrisome lumps or masses. Her breasts are symmetric and not as ptotic as they used to be. She has no cervical, supra/infraclavicular or axillary adenopathy. We discussed the rationale, risks, side effects and adjuvant goals of radiation therapy. We again reviewed 5 vs 15 fractions. After a full discussion, she would favor the longer course of treatments given her mammoplasty reconstruction. We discussed the acute as well as intermediate manager risks, including, but not limited to fatigue, skin erythema/desquamation, fibrosis of the breast, small risks of bone fracture, radiation pneumonitis, cardiac disease, and secondary malignancies. We discussed that the radiation fibrosis can manifest itself slowly over time so her asymmetry in breast size might be more noticeable later over time. She unde rstood and her questions were answered. She wished to proceed with treatment. We tentatively plan on delivering 4005 cGy in 15 fractions starting September 11, 2023 to give her a little more time for healing. My thanks to Annemarie Duenas, Manju and Sebastian for the opportunity to participate in this patient's care. EDUCATION Ready to learn, no apparent learning barriers were identified; learning preferences include listening. Explained diagnosis and treatment plan; patient expressed understanding of the content. CONSENT Discussed the risks, benefits, alternatives, and the necessity of other members of the healthcare team participating in the procedure. All questions answered and consent given. DIAGNOSIS #1 Multifocal right sided breast cancer, pT1a(m) cNX cM0, G2, ER+, NH+, HER2-, Ki-67=13%, s/p lumpectomy with positive DCIS margin, re-excision of the right breast margin and right sentinel lymph node biopsy on July 18, 2023 #2 Right oncoplastic breast reduction and left balancing breast reduction on August 09, 2023 Signed by: Pastora Wayne M.D. 08/30/2023 documented in this encounter Plan of Treatment Scheduled Referrals Name Type Priority Associated Diagnoses Order Schedule Radiation Oncology office visit (clinic) Outpatient Referral Routine Once for 1 Occurrences starting 08/30/2023 until 08/30/2023 documented as of this encounter Visit Diagnoses Diagnosis Malignant Neoplasm Of Breast Upper Inner Quadrant Female Right (HCC)- Primary documented in this encounter
--- OUTSIDE RECORDS SUMMARY | 2023-12-04 06:34 | XMS_ITS | Encounter Summary ---
Author Name Unknown Organization [facility] Address [address] [place] [address] Care Team Providers Care Waist Cutter Name Role Phone Unavailable Primary Care Provider Unavailabl e Reason for Visit * Radiation Therapy (Routine) - Authorized Specialty Diagnoses / Procedures Referred By Helene t Referred To Contact Diagnoses Malignant Neoplasm Of Breast Upper Inner Quadrant Female Right (HCC) Procedures Prior Auth Rad Tx [place] RADTN [place] DEL >=1 MEV COMPLEX 3D Pastora Wayne M.D. [address] [place] [address] [facility] Referral ID Status Reason Start Date Expiration Date V isits Requested Visits Authorized [id number] Authorized 09/11/2023 08/03/2024 19 19 Encounter Details Date Type Department Care Team (Latest Contact Info) Description 09/21/2023 12:53 PM CORPORATION SECRETARY - 09/21/2023 11:59 PM [facility] Encounter Department of Radiation Oncology in [place], [place] [address] [place] [phone] Pastora Wayne M.D. [address] [place] [phone] Discharge Disposition: Home or Self Care Social History Tobacco Use Types Packs/Day Years Used Date Smoking Tobacco: Never Smokeless Tobacco: Never [facility] Utilities Answer Date Recorded In the [...] Date Recorded Employment status Working with temporary [employer] 09/19/2023 Housing Stability Answer Date Recorded What is your living situation today? I have a [facility] place to live 09/19/2023 Sex and Gender Information Value Date Recorded Sex Assigned at Female 09/19/2023 1:29 PM CORPORATION SECRETARY Gender Identity Female 09/19/2023 1:31 PM CORPORATION SECRETARY Sexual Orientation Straight 09/19/2023 1: 31 PM CORPORATION SECRETARY documented as of this encounter Medications at [...]
--- OUTSIDE RECORDS SUMMARY | 2023-12-04 06:34 | XMS_ITS | Encounter Summary ---
Author Name Unknown Organization [facility] Address [address] [place] [address] Care Team Providers Care Network Control Supervisor Name Role Phone Unavailable Primary Care Provider Unavailabl e Reason for Visit * Radiation Therapy (Routine) - Authorized Specialty Diagnoses / Procedures Referred By Helene t Referred To Contact Diagnoses Malignant Neoplasm Of Breast Upper Inner Quadrant Female Right (HCC) Procedures Prior Auth Rad Tx [place] RADTN [place] DEL >=1 MEV COMPLEX 3D Pastora Wayne M.D. [address] [place] [address] [facility] Referral ID Status Reason Start Date Expiration Date V isits Requested Visits Authorized [id number] Authorized 09/11/2023 08/03/2024 19 19 Encounter Details Date Type Department Care Team (Latest Contact Info) Description 09/18/2023 12:22 PM HAIRSPRING I INSPECTOR - 09/18/2023 12:34 PM [facility] Hospital Encounter Department of Radiation Oncology in [place], [place] [address] [place] [phone] Pastora Wayne M.D. [address] [place] [address] Discharge Disposition: Home or Self Care Social History Tobacco Use Types Packs/Day Years Used Date Smoking Tobacco: Never Smokeless Tobacco: Never [facility] Utilities Answer Date Recorded In the past [...] Date Recorded Employment status Working with temporary [employer] 09/19/2023 Housing Stability Answer Date Recorded What is your living situation today? I have a [facility] place to live 09/19/2023 Sex and Gender Information Value Date Recorded Sex Assigned at Female 09/19/2023 1:29 PM HAIRSPRING I INSPECTOR Gender Identity Female 09/19/2023 1:31 PM HAIRSPRING I INSPECTOR Sexual Orientation Straight 09/19/2023 1: 31 PM HAIRSPRING I INSPECTOR documented as of this encounter Medications at [...]
--- OUTSIDE RECORDS SUMMARY | 2023-12-04 06:34 | XMS_ITS | Encounter Summary ---
Author Name Unknown Organization [facility] Address [address] [place] [address] Care Team Providers Care Gravity Prospecting Supervisor Name Role Phone Unavailable Primary Care Provider Unavailabl e Reason for Visit * Radiation Therapy (Routine) - Authorized Specialty Diagnoses / Procedures Referred By Helene t Referred To Contact Diagnoses Malignant Neoplasm Of Breast Upper Inner Quadrant Female Right (HCC) Procedures Prior Auth Rad Tx [place] RADTN [place] DEL >=1 MEV COMPLEX 3D Pastora Wayne M.D. [address] [place] [address] [facility] Referral ID Status Reason Start Date Expiration Date V isits Requested Visits Authorized [id number] Authorized 09/11/2023 08/03/2024 19 19 Encounter Details Date Type Department Care Team (Latest Contact Info) Description 09/27/2023 12:51 PM SLOT SERVICE SPECIALIST - 09/27/2023 11:59 PM [facility] Hospital Encounter Department of Radiation Oncology in [place], [place] [address] [place] [phone] Pastora Wayne M.D. [address] [place] [address] Discharge Disposition: Home or Self Care Social History Tobacco Use Types Packs/Day Years Used Date Smoking Tobacco: Never Smokeless Tobacco: Never [facility] Utilities Answer Date Recorded In the [...] Date Recorded Employment status Working with temporary [employer] 09/19/2023 Housing Stability Answer Date Recorded What is your living situation today? I have a [facility] place to live 09/19/2023 Sex and Gender Information Value Date Recorded Sex Assigned at Female 09/19/2023 1:29 PM SLOT SERVICE SPECIALIST Gender Identity Female 09/19/2023 1:31 PM SLOT SERVICE SPECIALIST Sexual Orientation Straight 09/19/2023 1: 31 PM SLOT SERVICE SPECIALIST documented as of this encounter Medications at [...]
--- OUTSIDE RECORDS SUMMARY | 2023-12-04 06:34 | XMS_ITS | Encounter Summary ---
Author Name Unknown Organization [facility] Address [address] [place] [address] Care Team Providers Care Cabinet Worker Name Role Phone Unavailable Primary Care Provider Unavailabl e Reason for Visit * Radiation Therapy (Routine) - Authorized Specialty Diagnoses / Procedures Referred By Helene t Referred To Contact Diagnoses Malignant Neoplasm Of Breast Upper Inner Quadrant Female Right (HCC) Procedures Prior Auth Rad Tx [place] RADTN TX DEL >=1 MEV COMPLEX 3D Pastora Wayne M.D. [address] [place] [address] [facility] Referral ID Status Reason Start Date Expiration Date V isits Requested Visits Authorized [id number] Authorized 09/11/2023 08/03/2024 19 19 Encounter Details Date Type Department Care Team (Latest Contact Info) Description 09/13/2023 10:27 AM AWS SOLUTION ARCHITECT - 09/13/2023 11:59 PM [facility] Hospital Encounter Department of Radiation Oncology in [place], [place] [address] [place] [phone] Pastora Wayne M.D. [address] [place] [address] Discharge Disposition: Home or Self Care Social History Tobacco Use Types Packs/Day Years Used Date Smoking Tobacco: Never Smokeless Tobacco: Never [facility] Utilities Answer Date Recorded In [...] Date Recorded Employment status Working with temporary [employer] 09/19/2023 Housing Stability Answer Date Recorded What is your living situation today? I have a [facility] place to live 09/19/2023 Sex and Gender Information Value Date Recorded Sex Assigned at Female 09/19/2023 1:29 PM AWS SOLUTION ARCHITECT Gender Identity Female 09/19/2023 1:31 PM AWS SOLUTION ARCHITECT Sexual Orientation Straight 09/19/2023 1: 31 PM AWS SOLUTION ARCHITECT documented as of this encounter Medications at [...]
--- OUTSIDE RECORDS SUMMARY | 2023-12-04 06:34 | XMS_ITS | Encounter Summary ---
Author Name Unknown Organization [facility] Address [address] [place] [address] Care Team Providers Care Regulator Assembler Name Role Phone Unavailable Primary Care Provider Unavailabl e Encounter Details Date Type Department Care Team (Late st Contact Info) Description 09/29/2023 Documentation Department of Radiation Oncology in [place], [place] [address] [place] [address] Pastora Wayne M.D. [address] [place] [phone] Social History Tobacco Use Types Packs/Day Years Used Date Smoking Tobacco: Never Smokeless Tobacco: Never [facility] Utilities Answer Date Recorded In the past 12 months has [facility] electric, gas, oil, or water company threatened [...] your living situation today? I have a [facility] place to live 09/19/2023 Sex and Gender Information Value Date Recorded Sex Assigned at Female 09/19/2023 1:29 PM TONGUE PRESSER Gender Identity Female 09/19/2023 1:31 PM TONGUE PRESSER Sexual Orientation Straight 09/19/2023 1: 31 PM TONGUE PRESSER documented as of this encounter Miscellaneous Notes * Radiation Completion Notes - Xenia Hlal R.N. - 09/29/2023 11:59 PM CST DIAGNOSIS: 1. 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 Treatment Intent: Curative Concomitant Therapy: None Single Plan Treatment Course: 1xBreast Plan ID Fractions Dose / Fraction (cGy) Dose Treated (cGy) Dose Planned (cGy) First Treatment Last Treatment Elapsed Days [id number] [phone] 09/11/2023 09/29/2023 18 Course Summary 09/11/2023 09/29/2023 18 Radiation Modality: Photons CLINICAL SUMMARY Rocio Oconnor completed radiation treatment as planned without interruptions. The course of treatment was tolerated well. The patient experienced toxicities of grade 1 dermatitis during radiation treatment. TREATMENT RESPONSE: Response to treatment will be determined by post-treatment imaging and/or laboratory work. RECOMMENDED FOLLOW UP: Primary Medical Oncologist. Dr. 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
--- OUTSIDE RECORDS SUMMARY | 2023-12-04 06:34 | XMS_ITS | Encounter Summary ---
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 [address] [place] [address] [facility] Referral ID Status Reason Start Date Expiration Date V isits Requested Visits Authorized [id number] Authorized 09/11/2023 08/03/2024 19 19 Encounter Details Date Type Department Care Team (Latest Contact Info) Description 09/22/2023 12:51 PM DELIVERY SUPERVISOR - 09/22/2023 11:59 PM [facility] Hospital Encounter Department of Radiation Oncology in [place], [place] [address] [place] [phone] Pastora Wayne M.D. [address] [place] [address] Discharge Disposition: Home or Self Care Social History Tobacco Use Types Packs/Day Years Used Date Smoking Tobacco: Never Smokeless Tobacco: Never [facility] Utilities Answer Date Recorded In the [...] Date Recorded Employment status Working with temporary [employer] 09/19/2023 Housing Stability Answer Date Recorded What is your living situation today? I have a [facility] place to live 09/19/2023 Sex and Gender Information Value Date Recorded Sex Assigned at Female 09/19/2023 1:29 PM DELIVERY SUPERVISOR Gender Identity Female 09/19/2023 1:31 PM DELIVERY SUPERVISOR Sexual Orientation Straight 09/19/2023 1: 31 PM DELIVERY SUPERVISOR documented as of this encounter Medications at [...]
--- OUTSIDE RECORDS SUMMARY | 2023-12-04 06:34 | XMS_ITS | Encounter Summary ---
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 [address] [place] [address] [facility] Referral ID Status Reason Start Date Expiration Date V isits Requested Visits Authorized [id number] Authorized 09/11/2023 08/03/2024 Encounter Details Date Type Department Care Team (Latest Contact Info) Description 09/15/2023 12:25 PM IT SOLUTIONS ARCHITECT - 09/15/2023 11:59 PM [facility] Hospital Encounter Department of Radiation Oncology in [place], [place] [address] [place] [address] Pastora Wayne M.D. [address] [place] [address] Discharge Disposition: Home or Self Care Social History Tobacco Use Types Packs/Day Years Used Date Smoking Tobacco: Never Smokeless Tobacco: Never [facility] Utilities Answer Date Recorded In the [...] Date Recorded Employment status Working with temporary [employer] 09/19/2023 Housing Stability Answer Date Recorded What is your living situation today? I have a [facility] 09/19/2023 Sex and Gender Information Value Date Recorded Sex Assigned at Female 09/19/2023 1:29 PM IT SOLUTIONS ARCHITECT Gender Identity Female 09/19/2023 1:31 PM IT SOLUTIONS ARCHITECT Sexual Orientation Straight 09/19/2023 1: 31 PM IT SOLUTIONS ARCHITECT documented as of this encounter Medications [...]
--- OUTSIDE RECORDS SUMMARY | 2023-12-04 06:34 | XMS_ITS | Encounter Summary ---
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 [address] [place] [address] [facility] Referral ID Status Reason Start Date Expiration Date V isits Requested Visits Authorized [id number] Authorized 09/11/2023 08/03/2024 19 19 Encounter Details Date Type Department Care Team (Latest Contact Info) Description 09/12/2023 12:23 PM LAW LIBRARIAN - 09/12/2023 11:59 PM [facility] Hospital Encounter Department of Radiation Oncology in [place], [place] [address] [place] [address] Pastora Wayne M.D. [address] [place] [address] Discharge Disposition: Home or Self Care Social History Tobacco Use Types Packs/Day Years Used Date Smoking Tobacco: Never Smokeless Tobacco: Never [facility] Utilities Answer Date Recorded In the [...] Date Recorded Employment status Working with temporary [employer] 09/19/2023 Housing Stability Answer Date Recorded What is your living situation today? I have a [facility] place to live 09/19/2023 Sex and Gender Information Value Date Recorded Sex Assigned at Female 09/19/2023 1:29 PM LAW LIBRARIAN Gender Identity Female 09/19/2023 1:31 PM LAW LIBRARIAN Sexual Orientation Straight 09/19/2023 1: 31 PM LAW LIBRARIAN documented as of this encounter Medications at [...]
--- OUTSIDE RECORDS SUMMARY | 2023-12-04 06:34 | XMS_ITS | Encounter Summary ---
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 [address] [place] [address] [facility] Region Referral ID Status Reason Start Date Expiration Date V isits Requested Visits Authorized [id number] Authorized 08/04/2023 08/03/2024 10 10 Encounter Details Date Type Department Care Team (Latest Contact Info) Description 09/13/2023 10:27 AM SERVICE CENTER COORDINATOR - 09/13/2023 1:25 PM SERVICE CENTER COORDINATOR Hospital Encounter Department of Radiation Oncology in [place], [place] [address] [place] [address] Pastora Wayne M.D. 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 I have a [facility] place to live 09/19/2023 Sex and Gender Information Value Date Recorded Sex Assigned at Female 09/19/2023 1:29 PM SERVICE CENTER COORDINATOR Gender Identity Female 09/19/2023 1:31 PM SERVICE CENTER COORDINATOR Sexual Orientation Straight 09/19/2023 1: 31 PM SERVICE CENTER COORDINATOR documented as of this encounter Last Filed Vital Signs Vital Sign Reading Time Taken Comments Blood Pressure - - Pulse - - Temperature 36.4 ??C (97.6 ??F) 09/13/2023 1 0:46 AM SERVICE CENTER COORDINATOR Respiratory Rate - - Oxygen Saturation - - Inhaled Oxygen Concentration - - Weight 88.4 kg (194 lb 14.2 oz) 024 10:46 AM SERVICE CENTER COORDINATOR Height - - Body Mass Index - [...] Progress Notes * Pastora Wayne M.D. - 09/13/2023 11:00 AM CST ATTESTATION FOR MANAGEMENT VISIT I saw and evaluated the patient and participated in the yan portions of the service as noted below.I reviewed the documentation of Ms. Xenia Hall RN and agree with the findings and plan. Thepatient appears well on exam. We will continue with radiation as planned and monitor weekly. Pastora Wayne M.D., 09/13/2023 SUBJECTIVE CHIEF COMPLAINT/REASON FOR VISIT Evaluation for side effects while receiving radiation treatment for 1. 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 HISTORY OF PRESENT ILLNESS Rocio Oconnor is a 63 y.o. female with Multifocal right sided breast cancer, pT1a(m) cNX cM0, G2, ER+, AK+, HER2-, Ki-67=13%, s/p lumpectomy with positive DCIS margin. Treatment Course: 1xBreast Plan ID Fractions Dose / Fraction (cGy) Dose Treated (cGy) Dose Planned (cGy) First Treatment Last Treatment Elapsed Days [id number] 09/11/2023 09/13/2023 2 Course Summary 09/11/2023 09/13/2023 2 The patient was seen and examined today with Dr. Wayne. The patient reports to be feeling well overall. She is applying lotion and Mometasone to the skin twice daily. She denies any radiation related side effects at this time. PATIENT REPORTED SYMPTOM SCREEN: FATIGUE (Scale: 0 = no fatigue; 10 = worst fatigue you can imagine): PAIN (Scale: 0 = no pain; 10 = worst pain you can imagine): OVERALL QUALITY OF LIFE (Scale: 0 = as bad as can be; 10 = as good as can be): OBJECTIVE Temp 36.4 ??C (Temporal) Wt 88.4 kg PHYSICAL EXAMINATION General: Alert and oriented, in no apparent distress. ASSESSMENT / PLAN #1 Multifocal right sided breast cancer, pT1a(m) cNX cM0, G2, ER+, AK+, HER2-, Ki-67=13%, s/p lumpectomy with positive DCIS margin, re-excision of the right breast margin and right sentinel lymph node biopsy on July 18, 2023 #2 Right oncoplastic breast reduction and left balancing breast reduction on August 09, 2023 #3 Radiation to right breast initiated on September 11, 2023; anticipated date of completion 2023. The patient is tolerating radiation treatment well overall. Discussed with patient that she should begin to apply Mometasone twice daily. Patient should also apply lotion 2-3 times daily and should wait 30 minutes in between Mometasone and lotion application. She will continue with radiation treatment as planned. She can contact our care team with any question or concerns. Signed by: Xenia Hall R.N. 09/13/2023 11:18 AM SERVICE CENTER COORDINATOR ICE CENTER COORDINATOR documented in this encounter Miscellaneous Notes * Addendum Note - Pastora Wayne M.D. - 09/13/2023 11:00 AM CSTEncounter addended by: Pastora Wayne M.D. on: 09/19/2023 4:01 PM Actions taken: Clinical Note Signed ICE CENTER COORDINATOR * Addendum Note - Pastora Wayne M.D. - 09/13/2023 11:00 AM CSTEncounter addended by: Pastora Wayne M.D. 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
--- OUTSIDE RECORDS SUMMARY | 2023-12-04 06:34 | XMS_ITS | Encounter Summary ---
Author Name Unknown Organization 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 [address] [place] [address] [facility] Referral ID Status Reason Start Date Expiration Date V isits Requested Visits Authorized [id number] Authorized 09/11/2023 08/03/2024 19 19 Encounter Details Date Type Department Care Team (Latest Contact Info) Description 09/11/2023 11:49 AM HAM SAWYER - 09/11/2023 11:59 PM [facility] Hospital Encounter Department of Radiation Oncology in [place], [place] [address] [place] [address] Pastora Wayne M.D. [address] [place] [address] Discharge Disposition: Home or Self Care Social History Tobacco Use Types Packs/Day Years Used Date Smoking Tobacco: Never Smokeless Tobacco: Never [facility] Utilities Answer Date Recorded In the [...] Date Recorded Employment status Working with temporary [employer] 09/19/2023 Housing Stability Answer Date Recorded What is your living situation today? I have a [facility] place to live 09/19/2023 Sex and Gender Information Value Date Recorded Sex Assigned at Female 09/19/2023 1:29 PM HAM SAWYER Gender Identity Female 09/19/2023 1:31 PM HAM SAWYER Sexual Orientation Straight 09/19/2023 1: 31 PM HAM SAWYER documented as of this encounter Medications at [...]
--- OUTSIDE RECORDS SUMMARY | 2023-12-04 06:34 | XMS_ITS | Encounter Summary ---
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 [address] [place] [address] [facility] Referral ID Status Reason Start Date Expiration Date V isits Requested Visits Authorized [id number] Authorized 09/11/2023 08/03/2024 19 19 Encounter Details Date Type Department Care Team (Latest Contact Info) Description 09/29/2023 1:06 PM HOURLY TEAM MEMBERS - 09/29/2023 11:59 PM [facility] Hospital Encounter Department of Radiation Oncology in [place], [place] [address] [place] [phone] Pastora Wayne M.D. [address] [place] [address] Discharge Disposition: Home or Self Care Social History Tobacco Use Types Packs/Day Years Used Date Smoking Tobacco: Never Smokeless Tobacco: Never [facility] Utilities Answer Date Recorded [...] Date Recorded Employment status Working with temporary [employer] 09/19/2023 Housing Stability Answer Date Recorded What is your living situation today? I have a [facility] place to live 09/19/2023 Sex and Gender Information Value Date Recorded Sex Assigned at Female 09/19/2023 1:29 PM HOURLY TEAM MEMBERS Gender Identity Female 09/19/2023 1:31 PM HOURLY TEAM MEMBERS Sexual Orientation Straight 09/19/2023 1: 31 PM HOURLY TEAM MEMBERS documented as of this encounter Medications at [...]
--- OUTSIDE RECORDS SUMMARY | 2023-12-04 06:34 | XMS_ITS | Encounter Summary ---
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 [address] [place] [address] [facility] Referral ID Status Reason Start Date Expiration Date V isits Requested Visits Authorized [id number] Authorized 09/11/2023 08/03/2024 19 19 Encounter Details Date Type Department Care Team (Latest Contact Info) Description 09/20/2023 12:51 PM TEMPLATE MAKER - 09/20/2023 11:59 PM [facility] Hospital Encounter Department of Radiation Oncology in [place], [place] [address] [place] [phone] Pastora Wayne M.D. [address] [place] [address] Discharge Disposition: Home or Self Care Social History Tobacco Use Types Packs/Day Years Used Date Smoking Tobacco: Never Smokeless Tobacco: Never [facility] Utilities Answer Date Recorded In the [...] Date Recorded Employment status Working with temporary [employer] 09/19/2023 Housing Stability Answer Date Recorded What is your living situation today? I have a [facility] place to live 09/19/2023 Sex and Gender Information Value Date Recorded Sex Assigned at Female 09/19/2023 1:29 PM TEMPLATE MAKER Gender Identity Female 09/19/2023 1:31 PM TEMPLATE MAKER Sexual Orientation Straight 09/19/2023 1: 31 PM TEMPLATE MAKER documented as of this encounter Medications at [...]
--- OUTSIDE RECORDS SUMMARY | 2023-12-04 06:34 | XMS_ITS | Encounter Summary ---
Author Name Unknown Organization [facility] Address [address] [place] [address] Care Team Providers Care Cushion Spring Assembler Name Role Phone Unavailable Primary Care Provider Unavailabl e Encounter Details Date Type Department Care Team (Latest Contact Info) Description 09/18/2023 12:35 PM BLAST FURNACE CHECKER - 09/18/2023 1:34 PM BLAST FURNACE CHECKER Hospital Encounter Department of Radiation Oncology in [place], [place] [address] [place] [address] Pastora Wayne M.D. [address] [place] [phone] Shi Andrade R.N. 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 I have a [facility] place to live 09/19/2023 Sex and Gender Information Value Date Recorded Sex Assigned at Female 09/19/2023 1:29 PM BLAST FURNACE CHECKER Gender Identity Female 09/19/2023 1:31 PM BLAST FURNACE CHECKER Sexual Orientation Straight 09/19/2023 1: 31 PM BLAST FURNACE CHECKER documented as of this encounter Medications at [...] as of this encounter Progress Notes * Shi Andrade, R.N. - 09/18/2023 1:00 PM CST Patient was educated on side effects of radiation therapy. Their questions were answered to the best of my ability. The patient was encouraged to contact the team at any point, with questions or concerns. 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
--- OUTSIDE RECORDS SUMMARY | 2023-12-04 06:34 | XMS_ITS | Encounter Summary ---
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 [address] [place] [address] [facility] Referral ID Status Reason Start Date Expiration Date V isits Requested Visits Authorized [id number] Authorized 09/11/2023 08/03/2024 19 19 Encounter Details Date Type Department Care Team (Latest Contact Info) Description 09/19/2023 12:53 PM MID WIFE - 09/19/2023 11:59 PM [facility] Hospital Encounter Department of Radiation Oncology in [place], [place] [address] [place] [phone] Pastora Wayne M.D. [address] [place] [address] Discharge Disposition: Home or Self Care Social History Tobacco Use Types Packs/Day Years Used Date Smoking Tobacco: Never Smokeless Tobacco: Never [facility] Utilities Answer Date Recorded In [...] Date Recorded Employment status Working with temporary [employer] 09/19/2023 Housing Stability Answer Date Recorded What is your living situation today? I have a [facility] place to live 09/19/2023 Sex and Gender Information Value Date Recorded Sex Assigned at Female 09/19/2023 1:29 PM MID WIFE Gender Identity Female 09/19/2023 1:31 PM MID WIFE Sexual Orientation Straight 09/19/2023 1: 31 PM MID WIFE documented as of this encounter Medications at [...]
--- OUTSIDE RECORDS SUMMARY | 2023-12-04 06:34 | XMS_ITS | Encounter Summary ---
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 [address] [place] [address] [facility] Referral ID Status Reason Start Date Expiration Date V isits Requested Visits Authorized [id number] Authorized 09/11/2023 08/03/2024 19 19 Encounter Details Date Type Department Care Team (Latest Contact Info) Description 09/26/2023 12:50 PM CRIMINAL JUSTICE DEPARTMENT CHAIR - 09/26/2023 12:51 PM [facility] Hospital Encounter Department of Radiation Oncology in [place], [place] [address] [place] [phone] Pastora Wayne M.D. [address] [place] [address] Discharge Disposition: Home or Self Care Social History Tobacco Use Types Packs/Day Years Used Date Smoking Tobacco: Never Smokeless Tobacco: Never [facility] Utilities Answer Date Recorded In the [...] Date Recorded Employment status Working with temporary [employer] 09/19/2023 Housing Stability Answer Date Recorded What is your living situation today? I have a [facility] place to live 09/19/2023 Sex and Gender Information Value Date Recorded Sex Assigned at Female 09/19/2023 1:29 PM CRIMINAL JUSTICE DEPARTMENT CHAIR Gender Identity Female 09/19/2023 1:31 PM CRIMINAL JUSTICE DEPARTMENT CHAIR Sexual Orientation Straight 09/19/2023 1: 31 PM CRIMINAL JUSTICE DEPARTMENT CHAIR documented as of this encounter Medications at [...]
--- OUTSIDE RECORDS SUMMARY | 2023-12-04 06:34 | XMS_ITS | Encounter Summary ---
Author Name Unknown Organization [facility] Address [address] [place] [address] Care Team Providers Care Fiber Optic Central Office Installer Name Role Phone Unavailable Primary Care Provider Unavailabl e Reason for Referral * Radiation Therapy (Routine) - Authorized Specialty Diagnoses / Procedures Referred By Helene frank Referred To Contact Diagnoses Malignant Neoplasm Of Breast Upper Inner Quadrant Female Right (HCC) Procedures Management Visit Pastora Wayne M.D. 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 [address] [place] [address] [facility] Region Referral ID Status Reason Start Date Expiration Date V isits Requested Visits Authorized [id number] Authorized 08/04/2023 08/03/2024 10 10 Encounter Details Date Type Department Care Team (Latest Contact Info) Description 09/19/2023 12:53 PM PACKAGING MACHINE OPERATOR - 09/19/2023 3:51 PM PACKAGING MACHINE OPERATOR Hospital Encounter Department of Radiation Oncology in [place], [place] [address] [place] [phone] Pastora Wayne M.D. [address] [place] [phone] Malignant Neoplasm Of Breast Upper Inner Quadrant Female Right (HCC) Social History Tobacco Use Types Packs/Day Years Used Date Smoking Tobacco: Never Smokeless Tobacco: Never [facility] Utilities Answer Date Recorded In the past [...] your living situation today? I have a [facility] place to live 09/19/2023 Sex and Gender Information Value Date Recorded Sex Assigned at Female 09/19/2023 1:29 PM PACKAGING MACHINE OPERATOR Gender Identity Female 09/19/2023 1:31 PM PACKAGING MACHINE OPERATOR Sexual Orientation Straight 09/19/2023 1: 31 PM PACKAGING MACHINE OPERATOR documented as of this encounter Last Filed Vital Signs Vital Sign Reading Time Taken Comments Blood Pressure - - Pulse - - Temperature 36.1 ??C (97 ??F) 09/19/2023 1:32 PM PACKAGING MACHINE OPERATOR Respiratory Rate - - Oxygen Saturation - - Inhaled Oxygen Concentration - - Weight - - Height - - Body Mass Index - [...] Progress Notes * Pastora Wayne M.D. - 09/19/2023 1:30 PM CST ATTESTATION FOR MANAGEMENT VISIT I saw and evaluated the patient and participated in the yan portions of the service as noted below.I reviewed the documentation of Ms. Shi Andrade RN and agree with the findings and plan. The patient appears well on exam. We will continue with radiation as planned and monitor weekly. Pastora Wayne M.D., 09/19/2023 SUBJECTIVE CHIEF COMPLAINT/REASON FOR VISIT Evaluation for side effects while receiving radiation treatment for 1. 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 HISTORY OF PRESENT ILLNESS Rocio Oconnor is a 63 y.o. female with Multifocal right sided breast cancer, pT1a(m) cNX cM0, G2, ER+, MT+, HER2-, Ki-67=13%, s/p lumpectomy with positive DCIS margin. Treatment Course: 1xBreast Plan ID Fractions Dose / Fraction (cGy) Dose Treated (cGy) Dose Planned (cGy) First Treatment Last Treatment Elapsed Days [id number] 09/11/2023 09/19/2023 8 Course Summary 09/11/2023 09/19/2023 8 The patient was seen and examined today with Dr. Wayne. The patient reports to be feeling well overall. She is applying lotion and Mometasone to the skin twice daily. Patient reports 2 out of 10 stiffness pain to right lumpectomy scar with lifting/repetitive motion. Patient reports that her insurance is needing both FMLA forms as well as short term disability paper work filled out. PATIENT REPORTED SYMPTOM SCREEN: FATIGUE (Scale: 0 = no fatigue; 10 = worst fatigue you can imagine): PAIN (Scale: 0 = no pain; 10 = worst pain you can imagine): 2 OVERALL QUALITY OF LIFE (Scale: 0 = as bad as can be; 10 = as good as can be): OBJECTIVE Temp 36.1 ??C (Temporal) PHYSICAL EXAMINATION General: Alert and oriented, in no apparent distress. Skin: brisk erythema noted to left aspect of right breast. Dryness present to right breast. Mild erythema to upper and lower aspect of right breast. No areas of desquamation. ASSESSMENT / PLAN #1 Multifocal right sided breast cancer, pT1a(m) cNX cM0, G2, ER+, MT+, HER2-, Ki-67=13%, s/p lumpectomy with positive DCIS [...] treatment well overall. I recommended that patient start applying Aquaphor to the treatment field area twice a day. Patient will contact nursing staff if skin peels or blisters. Nurse education visit was completed yesterday. I will contact [employer] short disability office to inquire on additional paperwork that they need filled out to help with time off for patient (contact phone [phone]). She will continue with radiation treatment as planned. She can contact our care team with any question or concerns. Addendum: I called [employer] contact office today. Pool stated they said additional paperwork for short term disability to our office this morning. Upon review, they faxed to incorrect fax number. I provided them with our in clinic fax number today and they stated that they will re fax paper work today. Pool stated that they reason for additional paper work is that once they review FMLA paper work they realized patient is now eligible for potential paid benefits while out of work but that they need 2nd set of paperwork filled out before final determination is made for paid benefits. Signed by: Shi Andrade R.N. 09/19/2023 1:50 PM PACKAGING MACHINE OPERATOR AGING MACHINE OPERATOR documented in this encounter Miscellaneous Notes * Addendum Note - Pastora Wayne M.D. - 09/19/2023 1:30 PM CSTEncounter addended by: Pastora Wayne M.D. on: 09/19/2023 4:00 PM Actions taken: Clinical Note Signed AGING MACHINE OPERATOR * Addendum Note - Pastora Wayne M.D. - 09/19/2023 1:30 PM CSTEncounter addended by: Pastora Wayne M.D. on: 09/20/2023 10:13 AM Actions taken: Clinical Note Signed AGING MACHINE OPERATOR documented in this encounter Plan of Treatment Scheduled Orders Name Type Priority Associated Diagnoses Orde r Schedule Management Visit Radiation Oncology Routine Malignant Neoplasm Of Breast Upper Inner Quadrant Female Right (HCC) Once for 1 Occurrences starting 09/19/2023 until 09/19/2023 documented as of this encounter Visit Diagnoses Diagnosis Malignant Neoplasm Of Breast 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
--- OUTSIDE RECORDS SUMMARY | 2023-12-04 06:35 | XMS_ITS | Encounter Summary ---
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 [address] [place] [address] [facility] Region Referral ID Status Reason Start Date Expiration Date Visits Re quested Visits Authorized [id number] Closed 08/04/2023 08/03/2024 1 1 Encounter Details Date Type Department Care Team (Latest Contact Info) Description 08/30/2023 1:30 PM SHODDY MILL WORKER - 08/30/2023 4:38 PM SHODDY MILL WORKER Hospital Encounter Department of Radiation Oncology in [place], [place] [address] [place] [phone] Pastora Wayne M.D. [address] [place] [address] Malignant Neoplasm Of Breast Upper Inner Quadrant [...] Sex Assigned at Female 09/19/2023 1:29 PM SHODDY MILL WORKER Gender Identity Female 09/19/2023 1:31 PM SHODDY MILL WORKER Sexual Orientation Straight 09/19/2023 1: 31 PM SHODDY MILL WORKER documented as of this encounter Medications at [...] 0 06/06/2023 documented as of this encounter Procedure Notes * Chrissie Munroe, RTT - 08/30/2023 1:30 PM CSTAssociated Order(s): Initial Rad Onc Treatment Planning CT Simulation Pre-Procedure Diagnose(s): Malignant Neoplasm Of Breast Upper Inner Quadrant Female Right (HCC) Post-Procedure Diagnose(s): Malignant Neoplasm Of Breast Upper Inner Quadrant Female Right (HCC) Initial Rad Onc Treatment Planning CT Simulation Performed by: Pastora Wayne M.D. Authorized by: Pastora Wayne M.D. Simulation was performed under physician supervision based on physician order in preparation for radiation therapy. Physician was immediately available to provide assistance and direction throughout the procedure. Written consent for treatment was completed or confirmed. The patient was appropriately identified and placed in the treatment position using the necessary immobilization to ensure a reproducible treatment position. Reference castillo were placed to facilitate marking of isocenter. Area scanned:Neck and Chest Contrast used for the simulation procedure: None Patient position:head first supine and arms up Custom immobilization: Vac-festus Motion management: None Bolus: No CT guidance: Following positioning of the patient, a series of slices was obtained to be utilized in treatment planning. CT images were transferred to the OnHand treatment planning system, after a reference isocenter was determined and marked. Segmentation and treatment planning will take place prior to treatment delivery. Patient set up and imaging was appropriate and completed without incident. Supermarket Manager use:No DY MILL WORKER Associated attestation - Pastora Wayne M.D. - 08/30/2023 4:38 PM SHODDY MILL WORKER I was present during all critical and yan portions of the procedure(s) and immediately [facility] the entire duration. See note for details. 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 08/30/2023 ??2:27 PM Initial Rad Onc Treatment Planning CT Simulation Performed by: Pastora Wayne M.D. Authorized by: Pastora Wayne M.D. ?? Pastora Wayne M.D. 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
--- OUTSIDE RECORDS SUMMARY | 2023-12-04 06:35 | XMS_ITS | Encounter Summary ---
Author Name Unknown Organization [facility] Address [address] [place] [address] Care Team Providers Care Hydrological Technical Officer Name Role Phone Unavailable Primary Care Provider Unavailabl e Reason for Referral * Outpatient (Routine) - Closed Specialty Diagnoses / Procedures Referred By Helene frank Referred To Contact Radiation Oncology Pastora Wayne M.D. [address] [place] [phone] [facility] Region Referral ID Status Reason Start Date Expiration Date Visits Re quested Visits Authorized [id number] Closed 08/04/2023 08/03/2026 1 1 Scheduling Instructions YIG, 2-3 weeks after the last surgery for a follow-up and simulation GHT SOLICITOR Encounter Details Date Type Department Care Team (Late st Contact Info) Description 08/03/2023 Clinical Communication Department of Radiation Oncology in [place], [place] [address] [place] [phone] Pastora Wayne M.D. [address] [place] [phone] Social History Tobacco Use Types Packs/Day Years Used Date Smoking Tobacco: Never Smokeless Tobacco: Never Nutrition Answer Date Recorded Nutrition: EVOO Fat Source Unknown 06/30 Nutrition: Servings of Fruits/Vegetables per Day Not on file 06/30/2023 Dental Answer Date Recorded Dental: Regular Dentist Unknown 06/30/20 Sex and Gender Information Value Date Recorded Sex Assigned at Female 09/19/2023 1:29 PM FREIGHT SOLICITOR Gender Identity Female 09/19/2023 1:31 PM FREIGHT SOLICITOR Sexual Orientation Straight 09/19/2023 1: 31 PM FREIGHT SOLICITOR documented as of this encounter Miscellaneous Notes * Telephone Encounter - Bhavani Vázquez - 08/03/2023 1:33 PM CST Outside Provider/Health Care Facility Inquiry Caller???s name: Flor Caller???s role: Breast home care aide Release of Information verified: No, Continuation of care Facility name: [facility] Phone number: [phone] Degree of urgency for return call: Within 2 business days Reason for call: Flor called regarding an update. The patient saw Dr. Wayne for a consult on 07/07/23. She had a revision surgery on 07/18/23 and is currently scheduled on 08/09/23 for another procedure with plastics. Flor would like to know when Dr. Wayne would like to potentially start treatment. Any additional pertinent information: N/A GHT SOLICITOR documented in this encounter Plan of Treatment Scheduled Referrals Name Type Priority Associated Diagnoses Orde r Schedule Radiation Oncology office visit (clinic) Outpatient Referral Routine Expected: 08/30/2023 (Approximate), Expires: 08/04/2024 documented as of this encounter Visit Diagnoses Not on filedocumented in this encounter
--- NOTE | 2023-12-04 08:01 | W.ANESCHARGE ---
Anesthesia Charges Start Date/Time Anesthesia Start Date: 12/04/23 Anesthesia Start Time: 07:30 Stop Date/Time Anesthesia Stop Date: 12/04/23 Anesthesia Stop Time: 07:58
--- NOTE | 2023-12-04 08:57 | W.ANESCHARGE ---
Anesthesia Charges Start Date/Time Anesthesia Start Date: 12/04/23 Anesthesia Start Time: 07:30 Stop Date/Time Anesthesia Stop Date: 12/04/23 Anesthesia Stop Time: 07:58
== END 2023-12-04 06:31 | disposition home or self-care (01) ==
LOC: OP CLINIC 06:31
PROVIDERS: PCP Internal Medicine; Visit Provider Surgery
DX: Z12.11 Encounter for screening for malignant neoplasm of colon (principal)
CPT/HCPCS: 00812; 45378; J2704

== ENCOUNTER 2023-12-05 12:42 | Outpatient (CLI) | payer BC, SELFPAY ==
--- OUTSIDE RECORDS SUMMARY | 2023-12-05 12:45 | XMS_ITS | Clinical Summary ---
Author Name Unknown Organization [facility] Address [address], [place] [address] Care Team Providers Care Air Conditioner Installer Helper Name Role Phone Pcp, Pt Declines MD Primary Care Provider [phone] Source Comments You are receiving this document as you are listed as the primary care provider,follow-up provider, or the patient has been referred to you for consultation.This is in compliance with the Medicare and[facility] Hospital[facility] EHR Incentive Program,which states Providers who transition their patient to another setting of careor provider of care or refers their patient to another provider of care shouldprovide summary care record for each transition of care or referral. [facility] Allergies No known active allergies Medications Medication [...] 82.6 kg (182 lb) 10/03/2016 11:22 AM CONVERTING SUPERVISOR Height 165.1 cm (5' 5) 10/03/2016 11:22 AM CONVERTING SUPERVISOR Body Mass Index 30.29 10/03/2016 11:22 AM CONVERTING SUPERVISOR Plan of Treatment Health Maintenance Due Date [...] age to complete this topic Care Teams Air Conditioner Installer Helper Relationship Specialty Start Date End Date Pcp, [place] [address] PCP - General 01/14/19
--- OUTSIDE RECORDS SUMMARY | 2023-12-05 12:45 | XMS_ITS | Referral Summary ---
Author Name Unknown Organization [facility] Address [address] [place] [address] Care Team Providers Care Hybrid Derivatives Trader Name Role Phone Md, Not Listed Primary [...] Comments Blood Pressure 112/74 08/09/2023 12:30 PM SUPERVISOR CARTOGRAPHY Pulse 70 08/09/2023 12:30 PM SUPERVISOR CARTOGRAPHY Temperature 36.8 ??C (98.2 ??F) 08/09/2023 11:[address] Respiratory Rate 12 08/09/2023 12:30 PM SUPERVISOR CARTOGRAPHY Oxygen Saturation 97% 08/09/2023 12:30 PM SUPERVISOR CARTOGRAPHY Inhaled Oxygen Concentration - - Weight - - Height 170.2 cm (5' 7) 08/07/2023 4:18 PM SUPERVISOR CARTOGRAPHY Body Mass Index - - Plan of Treatment Not on file Care Teams Hybrid Derivatives Trader Relationship Specialty Start Date End Date , Not Listed no address PCP - General Family Medicine 08/08/23
--- OUTSIDE RECORDS SUMMARY | 2023-12-05 12:45 | XMS_ITS | Clinical Summary ---
Author Name Unknown Organization [employer] [facility] Address [place], [place] [address] Care Team Providers Care Supply Chain Design Manager Name Role Phone Donya Cortes MD Primary Care Provider [phone] Allergies No known active allergies Medications No [...] T Respiratory Rate 18 10/08/2019 1:57 PM TREE CLIMBER Oxygen Saturation 97% 02/27/2023 9:40 AM CDT Inhaled Oxygen Concentration - - Weight 90.4 kg (199 lb 3.2 oz) 02/27/2023 9:40 A M CDT Height 166.4 cm (5' 5.51) 10/08/2019 1:57 PM CS T Body Mass Index 32.63 10/08/2019 1:57 PM TREE CLIMBER Plan of Treatment Upcoming Encounters Date Type Department Care Team (Late st Contact Info) Description 01/02/2024 1:40 PM CDT Office Visit [facility] [address] [place], [place] [address] Tamara Horton PA [address] [place] [place], [place] [address] Health Maintenance Due Date Last Done Comments [...] 16 Negative Negative 03/23/2023 1:50 PM CDT [facility] TYPE 18 Negative Negative 03/23/2023 1:50 PM CDT [facility] OTHER HIGH RISK TYPES Negative Negative 03/23/2023 1:50 PM CDT [facility] Other (Cervical) 03/14/2023 5:00 PM CDT 03/22/2023 11:44 AM CDT Narrative [facility] - 03/23/2023 1:50 PM CDT HPV types 16, 18, 31, 33, 35, 39, 45, 51, 52, 56, 58, 59, 66 and 68 DNA were undetectable or below the pre-set threshold. Methodology: Celia Francis 4800 HPV Test Mignon Sewell NP MICROBIOLOGY [facility] [address] [place] [address], [place] * (ABNORMAL) LIPID PANEL W REFLEX MEASURED LDL (11/29/2017 8:21 AM CDT) CHOLESTEROL,TOTAL 150 100 - 199 mg/dL 11/29/2017 2:53 PM CDT [facility] TRIGLYCERIDES 70 <150 mg/dL 11/29/2017 2:53 PM CDT [facility] HDL CHOLESTEROL 39(L) >40 mg/dL 8 2:53 PM CDT [facility] NON-HDL CHOLESTEROL 111 <145 mg/dl 11/29/2017 2:53 PM CDT [facility] CHOL/HDL RATIO 3.85 <4.50 11/29/2017 2:53 PM CDT [facility] LDL CHOLESTEROL 97 <=130 mg/dL 11/29/2017 2:53 PM CDT [facility] PROVIDER ORDERED STATUS RANDOM 11/29/2017 2:53 PM CDT [facility] Blood BLOOD SPECIMEN / Unknown Butterfly / Unknown 11/29/2017 8:21 AM CDT 11/29/2017 8:21 AM CDT Ping WYATT CHEMISTRY [facility] [address] [place] [address], from Last 3 Months or Most Recently Relevant to Health Maintenance Care Teams Supply Chain Design Manager Relationship Specialty Start Date End Date Donya Cortes MD [address] [place] [address] PCP - General 02/09/22
--- OUTSIDE RECORDS SUMMARY | 2023-12-05 12:45 | XMS_ITS | Clinical Summary ---
Author Name Unknown Organization [facility] Address [address] [place] [address] Care Team Providers Care Injection Molding Machine Tender Name Role Phone Md, Not Listed Primary [...] Comments Blood Pressure 112/74 08/09/2023 12:30 PM DRILL PRESS SET UP OPERATOR Pulse 70 08/09/2023 12:30 PM DRILL PRESS SET UP OPERATOR Temperature 36.8 ??C (98.2 ??F) 08/09/2023 11:[address] Respiratory Rate 12 08/09/2023 12:30 PM DRILL PRESS SET UP OPERATOR Oxygen Saturation 97% 08/09/2023 12:30 PM DRILL PRESS SET UP OPERATOR Inhaled Oxygen Concentration - - Weight - - Height 170.2 cm (5' 7) 08/07/2023 4:18 PM DRILL PRESS SET UP OPERATOR Body Mass Index - - Plan of [...] age to complete this topic Care Teams Injection Molding Machine Tender Relationship Specialty Start Date End Date , Not Listed no address PCP - General Family Medicine 08/08/23
--- OUTSIDE RECORDS SUMMARY | 2023-12-05 12:46 | XMS_ITS | Encounter Summary ---
Author Name Unknown Organization [facility] Address [address] [place] [address] Care Team Providers Care Turntable Worker Name Role Phone Unavailable Primary Care Provider Unavailabl e Reason for Visit * Radiation Therapy (Routine) - Authorized Specialty Diagnoses / Procedures Referred By Helene t Referred To Contact Diagnoses Malignant Neoplasm Of Breast Upper Inner Quadrant Female Right (HCC) Procedures Prior Auth Rad Tx [place] RADTN TX DEL >=1 MEV COMPLEX 3D Pastora Wayne M.D. [address] [place] [address] [facility] Referral ID Status Reason Start Date Expiration Date V isits Requested Visits Authorized [id number] Authorized 09/11/2023 08/03/2024 19 19 Encounter Details Date Type Department Care Team (Latest Contact Info) Description 09/27/2023 12:51 PM FOLDER TIER - 09/27/2023 11:59 PM [facility] Hospital Encounter Department of Radiation Oncology in [place], [place] [address] [place] [address] Pastora Wayne M.D. [address] [place] [address] Discharge Disposition: Home or Self Care Social History Tobacco Use Types Packs/Day Years Used Date Smoking Tobacco: Never Smokeless Tobacco: Never [facility] Utilities Answer Date Recorded [...] Date Recorded Employment status Working with temporary [employer] 09/19/2023 Housing Stability Answer Date Recorded What is your living situation today? I have a [facility] place to live 09/19/2023 Sex and Gender Information Value Date Recorded Sex Assigned at Female 09/19/2023 1:29 PM FOLDER TIER Gender Identity Female 09/19/2023 1:31 PM FOLDER TIER Sexual Orientation Straight 09/19/2023 1: 31 PM FOLDER TIER documented as of this encounter Medications at [...]
--- OUTSIDE RECORDS SUMMARY | 2023-12-05 12:46 | XMS_ITS | Encounter Summary ---
Author Name Unknown Organization [facility] Address [address] [place] [address] Care Team Providers Care Bank Operations Officer Name Role Phone Unavailable Primary Care Provider Unavailabl e Reason for Visit * Radiation Therapy (Routine) - Authorized Specialty Diagnoses / Procedures Referred By Helene t Referred To Contact Diagnoses Malignant Neoplasm Of Breast Upper Inner Quadrant Female Right (HCC) Procedures Prior Auth Rad Tx [place] RADTN TX DEL >=1 MEV COMPLEX 3D Pastora Wayne M.D. [address] [place] [address] [facility] Referral ID Status Reason Start Date Expiration Date V isits Requested Visits Authorized [id number] Authorized 09/11/2023 08/03/2024 19 19 Encounter Details Date Type Department Care Team (Latest Contact Info) Description 09/26/2023 12:50 PM QUALITY ENG - 09/26/2023 12:51 PM [facility] Hospital Encounter Department of Radiation Oncology in [place], [place] [address] [place] [phone] Pastora Wayne M.D. [address] [place] [address] Discharge Disposition: Home or Self Care Social History Tobacco Use Types Packs/Day Years Used Date Smoking Tobacco: Never Smokeless Tobacco: Never [facility] Utilities Answer Date Recorded In the [...] Date Recorded Employment status Working with temporary [email or web address] 09/19/2023 Housing Stability Answer Date Recorded What is your living situation today? I have a [facility] place to live 09/19/2023 Sex and Gender Information Value Date Recorded Sex Assigned at Female 09/19/2023 1:29 PM QUALITY ENG Gender Identity Female 09/19/2023 1:31 PM QUALITY ENG Sexual Orientation Straight 09/19/2023 1: 31 PM QUALITY ENG documented as of this encounter Medications at [...]
--- OUTSIDE RECORDS SUMMARY | 2023-12-05 12:46 | XMS_ITS | Encounter Summary ---
Author Name Unknown Organization [facility] Address [address] [place] [address] Care Team Providers Care Special Procedures Nurse Name Role Phone Unavailable Primary Care Provider Unavailabl e Encounter Details Date Type Department Care Team (Latest Contact Info) Description 09/18/2023 12:35 PM THERMOSTATIC CONTROLS SUPERVISOR - 09/18/2023 1:34 PM THERMOSTATIC CONTROLS SUPERVISOR Hospital Encounter Department of Radiation Oncology in [place], [place] [address] [place] [address] Pastora Wayne M.D. [address] [place] [phone] Shi Andrade R.N. 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 I have a [facility] place to live 09/19/2023 Sex and Gender Information Value Date Recorded Sex Assigned at Female 09/19/2023 1:29 PM THERMOSTATIC CONTROLS SUPERVISOR Gender Identity Female 09/19/2023 1:31 PM THERMOSTATIC CONTROLS SUPERVISOR Sexual Orientation Straight 09/19/2023 1: 31 PM THERMOSTATIC CONTROLS SUPERVISOR documented as of this encounter Medications [...] at any point, with questions or concerns. MOSTATIC CONTROLS SUPERVISOR documented in this encounter Plan of Treatment Not on file documented as of this encounter Visit Diagnoses Diagnosis Malignant Neoplasm Of Breast Upper Inner Quadrant Female Right (HCC)- Primary documented in this encounter
--- OUTSIDE RECORDS SUMMARY | 2023-12-05 12:46 | XMS_ITS | Encounter Summary ---
Author Name Unknown Organization [facility] Address [address] [place] [address] Care Team Providers Care Chief Counsel Name Role Phone Unavailable Primary Care Provider Unavailabl e Encounter Details Date Type Department Care Team (Late st Contact Info) Description 09/29/2023 Documentation Department of Radiation Oncology in [place], [place] [address] [place] [address] Pastora Wayne M.D. [address] [place] [phone] Social History Tobacco Use Types Packs/Day Years Used Date Smoking Tobacco: Never Smokeless Tobacco: Never [facility] Utilities Answer Date Recorded In the past 12 months has [facility] [employer], gas, oil, or water company threatened [...] your living situation today? I have a [facility] place to live 09/19/2023 Sex and Gender Information Value Date Recorded Sex Assigned at Female 09/19/2023 1:29 PM ASSEMBLY LINE MACHINE OPERATOR Gender Identity Female 09/19/2023 1:31 PM ASSEMBLY LINE MACHINE OPERATOR Sexual Orientation Straight 09/19/2023 1: 31 PM ASSEMBLY LINE MACHINE OPERATOR documented as of this encounter Miscellaneous Notes * Radiation Completion Notes - Xenia Hall R.N. - 09/29/2023 11:59 PM CST DIAGNOSIS: 1. 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 Treatment Intent: Curative Concomitant Therapy: None Single Plan Treatment Course: 1xBreast Plan ID Fractions Dose / Fraction (cGy) Dose Treated (cGy) Dose Planned (cGy) First Treatment Last Treatment Elapsed Days [id number] 09/11/2023 09/29/2023 18 Course [...] by: Xenia Hall R.N., 10/12/2023 2:06 PM ASSEMBLY LINE MACHINE OPERATOR [facility] [address] [place] [address] MBLY LINE MACHINE OPERATOR documented in this encounter Plan of Treatment Not on file documented as of this encounter Visit Diagnoses Diagnosis Malignant Neoplasm Of Breast Upper Inner Quadrant Female Right (HCC)- Primary documented in this encounter
--- OUTSIDE RECORDS SUMMARY | 2023-12-05 12:46 | XMS_ITS | Encounter Summary ---
Author Name Unknown Organization [facility] Address [address] [place] [address] Care Team Providers Care Fur Blowing Machine Operator Name Role Phone Unavailable Primary Care Provider Unavailabl e Reason for Visit * Radiation Therapy (Routine) - Authorized Specialty Diagnoses / Procedures Referred By Helene t Referred To Contact Diagnoses Malignant Neoplasm Of Breast Upper Inner Quadrant Female Right (HCC) Procedures Prior Auth Rad Tx [place] RADTN TX DEL >=1 MEV COMPLEX 3D Pastora Wayne M.D. [address] [place] [address] [facility] Referral ID Status Reason Start Date Expiration Date V isits Requested Visits Authorized [id number] Authorized 09/11/2023 08/03/2024 19 19 Encounter Details Date Type Department Care Team (Latest Contact Info) Description 09/20/2023 12:51 PM REVERSE UNIT OPERATOR FISHERMAN - 09/20/2023 11:59 PM [facility] Hospital Encounter Department of Radiation Oncology in [place], [place] [address] [place] [phone] Pastora Wayne M.D. [address] [place] [address] Discharge Disposition: Home or Self Care Social History Tobacco Use Types Packs/Day Years Used Date Smoking Tobacco: Never Smokeless Tobacco: Never [facility] Utilities Answer Date Recorded In the [...] Date Recorded Employment status Working with temporary [employer] 09/19/2023 Housing Stability Answer Date Recorded What is your living situation today? I have a [facility] place to live 09/19/2023 Sex and Gender Information Value Date Recorded Sex Assigned at Female 09/19/2023 1:29 PM REVERSE UNIT OPERATOR FISHERMAN Gender Identity Female 09/19/2023 1:31 PM REVERSE UNIT OPERATOR FISHERMAN Sexual Orientation Straight 09/19/2023 1: 31 PM REVERSE UNIT OPERATOR FISHERMAN documented as of this encounter Medications at [...]
--- OUTSIDE RECORDS SUMMARY | 2023-12-05 12:46 | XMS_ITS | Clinical Summary ---
Author Name Unknown Organization [facility] Address [address] [place] [address] Care Team Providers Care Coffee Plantation Worker Name Role Phone Unavailable Primary Care Provider Unavailabl e Source Comments Patient records contain information from all sites at [facility]. For routine questions regarding patient records, call [phone] during business hours, M-F 8:00 AM - 5:00 PM Central Time. Record requests for emergency care only can be directed to [phone] at any time.[facility] Allergies No known active allergies Medications Medication [...] cM0, G2, ER+, DC+, HER2-) - Unsigned Encounters Date Type Department Care Team Description 10/19/2023 Clinical Communication Department of Radiation Oncology in [place], [place] [address] [place] [address] Fran Delgado M.D. 10/19/2023 Refill Department of Radiation Oncology in [place], [place] [address] [place] [address] Bella Mora P.A.-C., M.S. Med Refill 09/29/2023 1:06 PM COMPOSITION ROOFER - 09/29/2023 11:59 PM COMPOSITION ROOFER Hospital Encounter Department of Radiation Oncology in [address] [address] Pastora Wayne M.D. Discharge Disposition: Home or Self Care 09/29/2023 Documentation Department of Radiation Oncology in [address] [address] Pastora Wayne M.D. 09/28/2023 12:21 PM COMPOSITION ROOFER - 09/28/2023 11:59 PM COMPOSITION ROOFER Hospital Encounter Department of Radiation Oncology in [address] [address] Pastora Wayne M.D. Discharge Disposition: Home or Self Care 09/27/2023 12:51 PM COMPOSITION ROOFER - 09/27/2023 11:59 PM COMPOSITION ROOFER Hospital Encounter Department of Radiation Oncology in [address] [address] Pastora Wayne M.D. Discharge Disposition: Home or Self Care 09/26/2023 12:52 PM COMPOSITION ROOFER - 09/26/2023 4:16 PM COMPOSITION ROOFER Hospital Encounter Department of Radiation Oncology in [address] [address] Pastora Wayne M.D. Malignant Neoplasm Of Breast Upper Inner Quadrant Female Right (HCC) 09/26/2023 12:50 PM COMPOSITION ROOFER - 09/26/2023 12:51 PM COMPOSITION ROOFER Hospital Encounter Department of Radiation Oncology in [address] [address] Pastora Wayne M.D. Discharge Disposition: Home or Self Care 09/25/2023 12:49 PM COMPOSITION ROOFER - 09/25/2023 11:59 PM COMPOSITION ROOFER Hospital Encounter Department of Radiation Oncology in [address] [address] Pastora Wayne M.D. Discharge Disposition: Home or Self Care 09/22/2023 12:51 PM COMPOSITION ROOFER - 09/22/2023 11:59 PM COMPOSITION ROOFER Hospital Encounter Department of Radiation Oncology in [address] [address] Pastora Wayne M.D. Discharge Disposition: Home or Self Care 09/21/2023 12:53 PM COMPOSITION ROOFER - 09/21/2023 11:59 PM COMPOSITION ROOFER Hospital Encounter Department of Radiation Oncology in [address] [address] Pastora Wayne M.D. Discharge Disposition: Home or Self Care 09/20/2023 12:51 PM COMPOSITION ROOFER - 09/20/2023 11:59 PM COMPOSITION ROOFER Hospital Encounter Department of Radiation Oncology in [address] [address] Pastora Wayne M.D. Discharge Disposition: Home or Self Care 09/19/2023 12:53 PM COMPOSITION ROOFER - 09/19/2023 3:51 PM COMPOSITION ROOFER Hospital Encounter Department of Radiation Oncology in [address] [address] Pastora Wayne M.D. Malignant Neoplasm Of Breast Upper Inner Quadrant Female Right (HCC) 09/19/2023 12:53 PM COMPOSITION ROOFER - 09/19/2023 11:59 PM COMPOSITION ROOFER Hospital Encounter Department of Radiation Oncology in [address] [address] Pastora Wayne M.D. Discharge Disposition: Home or Self Care 09/18/2023 12:35 PM COMPOSITION ROOFER - 09/18/2023 1:34 PM COMPOSITION ROOFER Hospital Encounter Department of Radiation Oncology in [address] [address] Pastora Wayne M.D. 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 Discharge Disposition: Home or Self Care 09/15/2023 12:25 PM COMPOSITION ROOFER - 09/15/2023 11:59 PM COMPOSITION ROOFER Hospital Encounter Department of Radiation Oncology in [address] [address] Pastora Wayne M.D. Grieman, Kari A, REnedinaNEnedina Malignant Neoplasm Of Breast Upper Inner Quadrant Female Right (HCC) Discharge Disposition: Home or Self Care 09/15/2023 12:25 PM COMPOSITION ROOFER - 09/15/2023 11:59 PM COMPOSITION ROOFER Hospital Encounter Department of Radiation Oncology in [address] [address] Pastora Wayne M.D. Discharge Disposition: Home or Self Care 09/14/2023 12:31 PM COMPOSITION ROOFER - 09/14/2023 11:59 PM COMPOSITION ROOFER Hospital Encounter Department of Radiation Oncology in [address] [address] Pastora Wayne M.D. Discharge Disposition: Home or Self Care 09/13/2023 10:27 AM COMPOSITION ROOFER - 09/13/2023 1:25 PM COMPOSITION ROOFER Hospital Encounter Department of Radiation Oncology in [address] [address] Pastora Wayne M.D. Malignant Neoplasm Of Breast Upper Inner Quadrant Female Right (HCC) 09/13/2023 10:27 AM COMPOSITION ROOFER - 09/13/2023 11:59 PM COMPOSITION ROOFER Hospital Encounter Department of Radiation Oncology in [address] [address] Pastora Wayne M.D. Discharge Disposition: Home or Self Care 09/12/2023 12:23 PM COMPOSITION ROOFER - 09/12/2023 11:59 PM COMPOSITION ROOFER Hospital Encounter Department of Radiation Oncology in [place], [place] [address] [place] [phone] Pastora Wayne M.D. Discharge Disposition: Home or Self Care 09/11/2023 11:49 AM COMPOSITION ROOFER - 09/11/2023 11:59 PM COMPOSITION ROOFER Hospital Encounter Department of Radiation Oncology in [address] [address] Pastora Wayne M.D. Discharge Disposition: Home or Self Care from Last 3 Months Family History Medical History Relation Name Comments Breast cancer Paternal Cousin Relation Name Status Comments Paternal Cousin Other Social History Tobacco Use Types Packs/Day Years Used Date Smoking Tobacco: Never Smokeless Tobacco: Never Tobacco Cessation:Counseling Given: Not Answered [facility] Utilities Answer Date Recorded In the past 12 months has th e [employer], gas, oil, or water [employer] threatened to shut off services in your [...] Sex Assigned at Female 09/19/2023 1:29 PM COMPOSITION ROOFER Gender Identity Female 09/19/2023 1:31 PM COMPOSITION ROOFER Sexual Orientation Straight 09/19/2023 1: 31 PM COMPOSITION ROOFER Last Filed Vital Signs Vital Sign Reading Time Taken Comments Blood Pressure 132/76 08/30/2023 12:55 PM COMPOSITION ROOFER Pulse 68 08/30/2023 12:55 PM COMPOSITION ROOFER Temperature 36.1 ??C (97 ??F) 09/19/2023 1:32 PM COMPOSITION ROOFER Respiratory Rate - - Oxygen Saturation - - Inhaled Oxygen Concentration - - Weight 88.4 kg (194 lb 14.2 oz) 024 10:46 AM COMPOSITION ROOFER Height - - Body Mass Index - [...] COMPLETE TREATMENT INFORMATION Routine 09/29/2023 1:24 PM COMPOSITION ROOFER ARIA DAILY TREATMENT INFORMATION Routine 09/29/2023 1:24 PM COMPOSITION ROOFER ARIA DAILY TREATMENT INFORMATION Routine 09/28/2023 1:07 PM COMPOSITION ROOFER ARIA DAILY TREATMENT INFORMATION Routine 09/27/2023 1:10 PM COMPOSITION ROOFER ARIA DAILY TREATMENT INFORMATION Routine 09/26/2023 1:16 PM COMPOSITION ROOFER ARIA DAILY TREATMENT INFORMATION Routine 09/25/2023 1:20 PM COMPOSITION ROOFER ARIA DAILY TREATMENT INFORMATION Routine 09/22/2023 1:18 PM COMPOSITION ROOFER ARIA DAILY TREATMENT INFORMATION Routine 09/21/2023 1:07 PM COMPOSITION ROOFER ARIA DAILY TREATMENT INFORMATION Routine 09/20/2023 1:17 PM COMPOSITION ROOFER ARIA DAILY TREATMENT INFORMATION Routine 09/19/2023 1:05 PM COMPOSITION ROOFER ARIA DAILY TREATMENT INFORMATION Routine 09/18/2023 12:42 PM COMPOSITION ROOFER ARIA DAILY TREATMENT INFORMATION Routine 09/15/2023 12:47 PM COMPOSITION ROOFER ARIA DAILY TREATMENT INFORMATION Routine 09/14/2023 12:47 PM COMPOSITION ROOFER ARIA DAILY TREATMENT INFORMATION Routine 09/13/2023 10:39 AM COMPOSITION ROOFER ARIA DAILY TREATMENT INFORMATION Routine 09/12/2023 1:00 PM COMPOSITION ROOFER ARIA DAILY TREATMENT INFORMATION Routine 09/11/2023 12:28 PM COMPOSITION ROOFER ARIA COURSE COMPLETE TREATMENT INFORMATION Routine 09/06/2023 12:40 PM COMPOSITION ROOFER from Last 3 Months Results * Aria Course Complete Treatment Information (09/29/2023 1:24 PM COMPOSITION ROOFER) Only the most recent of2 resultswithin the time period is included. Course ID 1xBreast TORIBIO ARIA Course Start Date 4 09:06 COMPOSITION ROOFER TORIBIO ARIA Course End Date 4 13:16 COMPOSITION ROOFER TORIBIO ARIA First Treatment Date 4 12:27 COMPOSITION ROOFER TORIBIO ARIA Last Treatment Date 4 13:24 COMPOSITION ROOFER TORIBIO ARIA Treatment Elapsed Days 18 TORIBIO ARIA Reference Point [id number] TORIBIO ARIA Dosage Given to Date cGy 4005 TORIBIO ARIA Plan ID [id number] TORIBIO ARIA Fractions Treated to Date 15 TORIBIO ARIA Planned Total Fractions 15 TORIBIO ARIA Prescribed Dose Per Fraction 267 TORIBIO ARIA Prescription Dose in cGy 4005 TORIBIO ARIA Plan Primary Reference Point [id number] TORIBIO ARIA 09/29/2023 1:24 PM COMPOSITION ROOFER Provider Not In System RADIATION ONCOLOG Y ORDERABLES MALU GRANGER na * Aria Daily Treatment Information (09/29/2023 1:24 PM COMPOSITION ROOFER) Only the most recent of15 resultswithin the time period is included. Course ID 1xBreast TORIBIO ARIA Course Start Date 4 09:06 COMPOSITION ROOFER TORIBIO ARIA First Treatment Date 4 12:27 COMPOSITION ROOFER TORIBIO ARIA Last Treatment Date 4 13:24 COMPOSITION ROOFER TORIBIO ARIA Treatment Elapsed Days 18 TORIBIO ARIA Reference Point [id number] TORIBIO ARIA Dosage Given to Date cGy 4005 TORIBIO ARIA Session Dosage Given 267 TORIBIO ARIA Plan ID [id number] TORIBIO ARIA Fractions Treated to Date 15 TORIBIO ARIA Planned Total Fractions 15 TORIBIO ARIA Prescribed Dose Per Fraction 267 TORIBIO ARIA Prescription Dose in cGy 4005 TORIBIO ARIA Plan Primary Reference Point [id number] TORIBIO ARIA 09/29/2023 1:24 PM COMPOSITION ROOFER Provider Not In System RADIATION ONCOLOG Y ORDERABLES MALU erwin from Last 3 Months
--- OUTSIDE RECORDS SUMMARY | 2023-12-05 12:46 | XMS_ITS ---
Author Name Unknown Organization [facility] Address [address] [place] [address] Care Team Providers Care Practice Clinician Name Role Phone Unavailable Primary Care Provider Unavailabl e Active Problems Problem Noted Date Diagnosed Date Malignant Neoplasm Of Breast Upper Inner Quadrant Female Right 07/03/2023 Cancer Staging:Pathologic stage from 06/06/2023:Stage Unknown(pT1a, pNX, cM0, G2, ER+, NM+, HER2-) - Unsigned Current Oncology Plans No current plan information found. Past Plans No past plan information found. Radiation Treatments * Plan Last Treated On Elapsed Days Fractions Treated Prescribed Fraction Dose Prescribed Total Dose [id number] 09/29/2023 18 15 of 15 267 cGy 4,005 cGy Reference Point Last Treated On Elapsed Days Session Dose Total Dose [id number] 09/29/2023 18 267 cGy 4,005 cGy
--- OUTSIDE RECORDS SUMMARY | 2023-12-05 12:46 | XMS_ITS | Encounter Summary ---
Author Name Unknown Organization [facility] Address [address] [place] [address] Care Team Providers Care Clinical Technologist Name Role Phone Unavailable Primary Care Provider Unavailabl e Reason for Visit * Radiation Therapy (Routine) - Authorized Specialty Diagnoses / Procedures Referred By Helene t Referred To Contact Diagnoses Malignant Neoplasm Of Breast Upper Inner Quadrant Female Right (HCC) Procedures Prior Auth Rad Tx [place] RADTN [place] DEL >=1 MEV COMPLEX 3D Pastora Wayne M.D. [address] [place] [address] [facility] Referral ID Status Reason Start Date Expiration Date V isits Requested Visits Authorized [id number] Authorized 09/11/2023 08/03/2024 19 19 Encounter Details Date Type Department Care Team (Latest Contact Info) Description 09/22/2023 12:51 PM REGISTERED RADIOLOGIC TECHNOLOGIST - 09/22/2023 11:59 PM [facility] Hospital Encounter Department of Radiation Oncology in [place], [place] [address] [place] [phone] Pastora Wayne M.D. [address] [place] [address] Discharge Disposition: Home or Self Care Social History Tobacco Use Types Packs/Day Years Used Date Smoking Tobacco: Never Smokeless Tobacco: Never [facility] Utilities Answer Date Recorded In the [...] Date Recorded Employment status Working with temporary [employer] 09/19/2023 Housing Stability Answer Date Recorded What is your living situation today? I have a [facility] place to live 09/19/2023 Sex and Gender Information Value Date Recorded Sex Assigned at Female 09/19/2023 1:29 PM REGISTERED RADIOLOGIC TECHNOLOGIST Gender Identity Female 09/19/2023 1:31 PM REGISTERED RADIOLOGIC TECHNOLOGIST Sexual Orientation Straight 09/19/2023 1: 31 PM REGISTERED RADIOLOGIC TECHNOLOGIST documented as of this encounter Medications at [...]
--- OUTSIDE RECORDS SUMMARY | 2023-12-05 12:46 | XMS_ITS | Encounter Summary ---
Author Name Unknown Organization [facility] Address [address] [place] [address] Care Team Providers Care Laborer Prestressed Concrete Name Role Phone Unavailable Primary Care Provider Unavailabl e Reason for Visit * Radiation Therapy (Routine) - Authorized Specialty Diagnoses / Procedures Referred By Helene t Referred To Contact Diagnoses Malignant Neoplasm Of Breast Upper Inner Quadrant Female Right (HCC) Procedures Prior Auth Rad Tx [place] RADTN [place] DEL >=1 MEV COMPLEX 3D Pastora Wayne M.D. [address] [place] [address] [facility] Referral ID Status Reason Start Date Expiration Date V isits Requested Visits Authorized [id number] Authorized 09/11/2023 08/03/2024 19 19 Encounter Details Date Type Department Care Team (Latest Contact Info) Description 09/25/2023 12:49 PM COMPTOMETER OPERATOR - 09/25/2023 11:59 PM [facility] Hospital Encounter Department of Radiation Oncology in [place], [place] [address] [place] [phone] Pastora Wayne M.D. [address] [place] [address] Discharge Disposition: Home or Self Care Social History Tobacco Use Types Packs/Day Years Used Date Smoking Tobacco: Never Smokeless Tobacco: Never [facility] Utilities Answer Date Recorded In the past [...] Date Recorded Employment status Working with temporary [employer] 09/19/2023 Housing Stability Answer Date Recorded What is your living situation today? I have a [facility] place to live 09/19/2023 Sex and Gender Information Value Date Recorded Sex Assigned at Female 09/19/2023 1:29 PM COMPTOMETER OPERATOR Gender Identity Female 09/19/2023 1:31 PM COMPTOMETER OPERATOR Sexual Orientation Straight 09/19/2023 1: 31 PM COMPTOMETER OPERATOR documented as of this encounter Medications [...]
--- OUTSIDE RECORDS SUMMARY | 2023-12-05 12:46 | XMS_ITS | Encounter Summary ---
Author Name Unknown Organization [facility] Address [address] [place] [address] Care Team Providers Care Physicist Light [employer] Optics Name Role Phone Unavailable Primary Care Provider Unavailabl e Reason for Visit * Radiation Therapy (Routine) - Authorized Specialty Diagnoses / Procedures Referred By Helene t Referred To Contact Diagnoses Malignant Neoplasm Of Breast Upper Inner Quadrant Female Right (HCC) Procedures Prior Auth Rad Tx [place] RADTN [place] DEL >=1 MEV COMPLEX 3D Pastora Wayne M.D. [address] [place] [address] [facility] Referral ID Status Reason Start Date Expiration Date V isits Requested Visits Authorized [id number] Authorized 09/11/2023 08/03/2024 19 19 Encounter Details Date Type Department Care Team (Latest Contact Info) Description 09/29/2023 1:06 PM STAVE SAW OPERATOR - 09/29/2023 11:59 PM [facility] Hospital Encounter Department of Radiation Oncology in [place], [place] [address] [place] [address] Pastora Wayne M.D. [address] [place] [address] Discharge Disposition: Home or Self Care Social History Tobacco Use Types Packs/Day Years Used Date Smoking Tobacco: Never Smokeless Tobacco: Never [facility] Utilities Answer Date Recorded In the [...] Date Recorded Employment status Working with temporary [employer] 09/19/2023 Housing Stability Answer Date Recorded What is your living situation today? I have a [facility] place to live 09/19/2023 Sex and Gender Information Value Date Recorded Sex Assigned at Female 09/19/2023 1:29 PM STAVE SAW OPERATOR Gender Identity Female 09/19/2023 1:31 PM STAVE SAW OPERATOR Sexual Orientation Straight 09/19/2023 1: 31 PM STAVE SAW OPERATOR documented as of this encounter Medications [...]
--- OUTSIDE RECORDS SUMMARY | 2023-12-05 12:46 | XMS_ITS | Referral Summary ---
Author Name Unknown Organization [facility] Address [address] [place] [address] Care Team Providers Care Senior Backup Administrator Name Role Phone Unavailable Primary Care Provider Unavailabl e Source Comments Patient records contain information from all sites at [facility]. For routine questions regarding patient records, call [phone] during business hours, M-F 8:00 AM - 5:00 PM Central Time. Record requests for emergency care only can be directed to [phone] at any time.[facility] Encounters Date Type Department Care Team Description 10/19/2023 Clinical Communication Department of Radiation Oncology in [address] [address] Fran Delgado M.D. 10/19/2023 Refill Department of Radiation Oncology in [address] [address] Bella Mora P.A.-C., M.S. Med Refill 09/29/2023 Documentation Department of Radiation Oncology in [address] [address] Pastora Wayne M.D. 09/29/2023 1:06 PM MECHANICAL STRIPER - 09/29/2023 11:59 PM MECHANICAL STRIPER Hospital Encounter Department of Radiation Oncology in [address] [address] Pastora Wayne M.D. Discharge Disposition: Home or Self Care 09/28/2023 12:21 PM MECHANICAL STRIPER - 09/28/2023 11:59 PM MECHANICAL STRIPER Hospital Encounter Department of Radiation Oncology in [address] [address] Pastora Wayne M.D. Discharge Disposition: Home or Self Care 09/27/2023 12:51 PM MECHANICAL STRIPER - 09/27/2023 11:59 PM MECHANICAL STRIPER Hospital Encounter Department of Radiation Oncology in [address] [address] Pastora Wayne M.D. Discharge Disposition: Home or Self Care 09/26/2023 12:52 PM MECHANICAL STRIPER - 09/26/2023 4:16 PM MECHANICAL STRIPER Hospital Encounter Department of Radiation Oncology in [address] [address] Pastora Wayne M.D. 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 Discharge Disposition: Home or Self Care 09/25/2023 12:49 PM MECHANICAL STRIPER - 09/25/2023 11:59 PM MECHANICAL STRIPER Hospital Encounter Department of Radiation Oncology in [address] [address] Pastora Wayne M.D. Discharge Disposition: Home or Self Care 09/22/2023 12:51 PM MECHANICAL STRIPER - 09/22/2023 11:59 PM MECHANICAL STRIPER Hospital Encounter Department of Radiation Oncology in [address] [address] Pastora Wayne M.D. Discharge Disposition: Home or Self Care 09/21/2023 12:53 PM MECHANICAL STRIPER - 09/21/2023 11:59 PM MECHANICAL STRIPER Hospital Encounter Department of Radiation Oncology in [address] [address] Pastora Wayne M.D. Discharge Disposition: Home or Self Care 09/20/2023 12:51 PM MECHANICAL STRIPER - 09/20/2023 11:59 PM MECHANICAL STRIPER Hospital Encounter Department of Radiation Oncology in [address] [address] Pastora Wanye M.D. Discharge Disposition: Home or Self Care 09/19/2023 12:53 PM MECHANICAL STRIPER - 09/19/2023 3:51 PM MECHANICAL STRIPER Hospital Encounter Department of Radiation Oncology in [address] [address] Pastora Wayne M.D. 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 Discharge Disposition: Home or Self Care 09/18/2023 12:35 PM MECHANICAL STRIPER - 09/18/2023 1:34 PM MECHANICAL STRIPER Hospital Encounter Department of Radiation Oncology in [address] [address] Pastora Wayne M.D. 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 Discharge Disposition: Home or Self Care 09/15/2023 12:25 PM MECHANICAL STRIPER - 09/15/2023 11:59 PM MECHANICAL STRIPER Hospital Encounter Department of Radiation Oncology in [address] [address] Pastora Wayne M.D. 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 Discharge Disposition: Home or Self Care 09/14/2023 12:31 PM MECHANICAL STRIPER - 09/14/2023 11:59 PM MECHANICAL STRIPER Hospital Encounter Department of Radiation Oncology in [address] [address] Pastora Wayne M.D. Discharge Disposition: Home or Self Care 09/13/2023 10:27 AM MECHANICAL STRIPER - 09/13/2023 1:25 PM MECHANICAL STRIPER Hospital Encounter Department of Radiation Oncology in [address] [address] Pastora Wayne M.D. 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 Discharge Disposition: Home or Self Care 09/12/2023 12:23 PM MECHANICAL STRIPER - 09/12/2023 11:59 PM MECHANICAL STRIPER Hospital Encounter Department of Radiation Oncology in [address] [address] Pastora Wayne M.D. Discharge Disposition: Home or Self Care 09/11/2023 11:49 AM MECHANICAL STRIPER - 09/11/2023 11:59 PM MECHANICAL STRIPER Hospital Encounter Department of Radiation Oncology in [address] [address] Pastora Wayne M.D. Discharge Disposition: Home or [...] from 06/06/2023:Stage Unknown(pT1a, pNX, cM0, G2, ER+, [place]+, HER2-) - Unsigned Social History Tobacco Use Types Packs/Day Years Used Date Smoking Tobacco: Never Smokeless Tobacco: Never Tobacco Cessation:Counseling Given: Not Answered [facility] Utilities Answer Date Recorded In the past 12 months has th e [employer] gas, oil, or water [employer] threatened to shut off services in your [...] your living situation today? I have a [facility] [employer] place to live 09/19/2023 Sex and Gender Information Value Date Recorded Sex Assigned at Female 09/19/2023 1:29 PM MECHANICAL STRIPER Gender Identity Female 09/19/2023 1:31 PM MECHANICAL STRIPER Sexual Orientation Straight 09/19/2023 1: 31 PM MECHANICAL STRIPER Last Filed Vital Signs Vital Sign Reading Time Taken Comments Blood Pressure 132/76 08/30/2023 12:55 PM MECHANICAL STRIPER Pulse 68 08/30/2023 12:55 PM MECHANICAL STRIPER Temperature 36.1 ??C (97 ??F) 09/19/2023 1:32 PM MECHANICAL STRIPER Respiratory Rate - - Oxygen Saturation - - Inhaled Oxygen Concentration - - Weight 88.4 kg (194 lb 14.2 oz) 024 10:46 AM MECHANICAL STRIPER Height - - Body Mass Index - - Plan of Treatment Not on file Procedures Procedure Name Priority Date/Time Associated Diagnosis Comments ARIA COURSE COMPLETE TREATMENT INFORMATION Routine 09/29/2023 1:24 PM MECHANICAL STRIPER ARIA DAILY TREATMENT INFORMATION Routine 09/29/2023 1:24 PM MECHANICAL STRIPER ARIA DAILY TREATMENT INFORMATION Routine 09/28/2023 1:07 PM MECHANICAL STRIPER ARIA DAILY TREATMENT INFORMATION Routine 09/27/2023 1:10 PM MECHANICAL STRIPER ARIA DAILY TREATMENT INFORMATION Routine 09/26/2023 1:16 PM MECHANICAL STRIPER ARIA DAILY TREATMENT INFORMATION Routine 09/25/2023 1:20 PM MECHANICAL STRIPER ARIA DAILY TREATMENT INFORMATION Routine 09/22/2023 1:18 PM MECHANICAL STRIPER ARIA DAILY TREATMENT INFORMATION Routine 09/21/2023 1:07 PM MECHANICAL STRIPER ARIA DAILY TREATMENT INFORMATION Routine 09/20/2023 1:17 PM MECHANICAL STRIPER ARIA DAILY TREATMENT INFORMATION Routine 09/19/2023 1:05 PM MECHANICAL STRIPER ARIA DAILY TREATMENT INFORMATION Routine 09/18/2023 12:42 PM MECHANICAL STRIPER ARIA DAILY TREATMENT INFORMATION Routine 09/15/2023 12:47 PM MECHANICAL STRIPER ARIA DAILY TREATMENT INFORMATION Routine 09/14/2023 12:47 PM MECHANICAL STRIPER ARIA DAILY TREATMENT INFORMATION Routine 09/13/2023 10:39 AM MECHANICAL STRIPER ARIA DAILY TREATMENT INFORMATION Routine 09/12/2023 1:00 PM MECHANICAL STRIPER ARIA DAILY TREATMENT INFORMATION Routine 09/11/2023 12:28 PM MECHANICAL STRIPER ARIA COURSE COMPLETE TREATMENT INFORMATION Routine 09/06/2023 12:40 PM MECHANICAL STRIPER from Last 3 Months Results * Aria Course Complete Treatment Information (09/29/2023 1:24 PM MECHANICAL STRIPER) Only the most recent of2 resultswithin the time period is included. Course ID 1xBreast TORIBIO ARIA Course Start Date 4 09:06 MECHANICAL STRIPER TORIBIO ARIA Course End Date 4 13:16 MECHANICAL STRIPER TORIBIO ARIA First Treatment Date 4 12:27 MECHANICAL STRIPER TORIBIO ARIA Last Treatment Date 4 13:24 MECHANICAL STRIPER TORIBIO ARIA Treatment Elapsed Days 18 TORIBIO ARIA Reference Point [id number] TORIBIO ARIA Dosage Given to Date cGy 4005 TORIBIO ARIA Plan ID [id number] TORIBIO ARIA Fractions Treated to Date 15 TORIBIO ARIA Planned Total Fractions 15 TORIBIO ARIA Prescribed Dose Per Fraction 267 TORIBIO ARIA Prescription Dose in cGy 4005 TORIBIO ARIA Plan Primary Reference Point [id number] TORIBIO ARIA 09/29/2023 1:24 PM MECHANICAL STRIPER Provider Not In System RADIATION ONCOLOG Y ORDERABLES TORIBIO ARIA na * Aria Daily Treatment Information (09/29/2023 1:24 PM MECHANICAL STRIPER) Only the most recent of15 resultswithin the time period is included. Course ID 1xBreast TORIBIO ARIA Course Start Date 4 09:06 MECHANICAL STRIPER TORIBIO ARIA First Treatment Date 4 12:27 MECHANICAL STRIPER TORIBIO ARIA Last Treatment Date 4 13:24 MECHANICAL STRIPER TORIBIO ARIA Treatment Elapsed Days 18 TORIBIO ARIA Reference Point [id number] TORIBIO ARIA Dosage Given to Date cGy 4005 TORIBIO ARIA Session Dosage Given 267 TORIBIO ARIA Plan ID [id number] TORIBIO ARIA Fractions Treated to Date 15 TORIBIO ARIA Planned Total Fractions 15 TORIBIO ARIA Prescribed Dose Per Fraction 267 TORIBIO ARIA Prescription Dose in cGy 4005 TORIBIO ARIA Plan Primary Reference Point [id number] TORIBIO ARIA 09/29/2023 1:24 PM MECHANICAL STRIPER Provider Not In System RADIATION ONCOLOG Y ORDERABLES MALU GRANGER na from Last 3 Months
--- OUTSIDE RECORDS SUMMARY | 2023-12-05 12:46 | XMS_ITS | Encounter Summary ---
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 [address] [place] [address] [facility] Referral ID Status Reason Start Date Expiration Date V isits Requested Visits Authorized [id number] Authorized 09/11/2023 08/03/2024 19 19 Encounter Details Date Type Department Care Team (Latest Contact Info) Description 09/28/2023 12:21 PM RIB MATCHER AND FITTER - 09/28/2023 11:59 PM [facility] Hospital Encounter Department of Radiation Oncology in [place], [place] [address] [place] [address] Pastora Wayne M.D. [address] [place] [address] Discharge Disposition: Home or Self Care Social History Tobacco Use Types Packs/Day Years Used Date Smoking Tobacco: Never Smokeless Tobacco: Never [facility] Utilities Answer Date Recorded In the [...] Date Recorded Employment status Working with temporary [employer] 09/19/2023 Housing Stability Answer Date Recorded What is your living situation today? I have a [facility] place to live 09/19/2023 Sex and Gender Information Value Date Recorded Sex Assigned at Female 09/19/2023 1:29 PM RIB MATCHER AND FITTER Gender Identity Female 09/19/2023 1:31 PM RIB MATCHER AND FITTER Sexual Orientation Straight 09/19/2023 1: 31 PM RIB MATCHER AND FITTER documented as of this encounter Medications at [...]
--- OUTSIDE RECORDS SUMMARY | 2023-12-05 12:46 | XMS_ITS | Encounter Summary ---
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 [address] [place] [address] [facility] Referral ID Status Reason Start Date Expiration Date V isits Requested Visits Authorized [id number] Authorized 09/11/2023 08/03/2024 Encounter Details Date Type Department Care Team (Latest Contact Info) Description 09/15/2023 12:25 PM PICKER TENDER - 09/15/2023 11:[address] [facility] Hospital Encounter Department of Radiation Oncology in [place], [place] [address] [place] [address] Pastora Wayne M.D. [address] [place] [address] Discharge Disposition: Home or Self Care Social History Tobacco Use Types Packs/Day Years Used Date Smoking Tobacco: Never Smokeless Tobacco: Never [facility] Utilities Answer Date Recorded In the past [...] Date Recorded Employment status Working with temporary [employer] 09/19/2023 Housing Stability Answer Date Recorded What is your living situation today? I have a [facility] place to live 09/19/2023 Sex and Gender Information Value Date Recorded Sex Assigned at Female 09/19/2023 1:29 PM PICKER TENDER Gender Identity Female 09/19/2023 1:31 PM PICKER TENDER Sexual Orientation Straight 09/19/2023 1: 31 PM PICKER TENDER documented as of this encounter Medications at [...]
--- OUTSIDE RECORDS SUMMARY | 2023-12-05 12:46 | XMS_ITS | Encounter Summary ---
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 [address] [place] [address] [facility] Referral ID Status Reason Start Date Expiration Date V isits Requested Visits Authorized [id number] Authorized 09/11/2023 08/03/2024 19 19 Encounter Details Date Type Department Care Team (Latest Contact Info) Description 09/21/2023 12:53 PM AEROSPACE PROJECT MANAGER - 09/21/2023 11:59 PM [facility] Hospital Encounter Department of Radiation Oncology in [place], [place] [address] [place] [phone] Pastora Wayne M.D. [address] [place] [address] Discharge Disposition: Home or Self Care Social History Tobacco Use Types Packs/Day Years Used Date Smoking Tobacco: Never Smokeless Tobacco: Never [facility] Utilities Answer Date Recorded In the [...] Date Recorded Employment status Working with temporary [employer] 09/19/2023 Housing Stability Answer Date Recorded What is your living situation today? I have a [facility] place to live 09/19/2023 Sex and Gender Information Value Date Recorded Sex Assigned at Female 09/19/2023 1:29 PM AEROSPACE PROJECT MANAGER Gender Identity Female 09/19/2023 1:31 PM AEROSPACE PROJECT MANAGER Sexual Orientation Straight 09/19/2023 1: 31 PM AEROSPACE PROJECT MANAGER documented as of this encounter Medications at [...]
--- OUTSIDE RECORDS SUMMARY | 2023-12-05 12:46 | XMS_ITS | Encounter Summary ---
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 [address] [place] [address] [facility] Region Referral ID Status Reason Start Date Expiration Date V isits Requested Visits Authorized [id number] Authorized 08/04/2023 08/03/2024 10 10 Encounter Details Date Type Department Care Team (Latest Contact Info) Description 09/19/2023 12:53 PM HAND II BLOCKER - 09/19/2023 3:51 PM HAND II BLOCKER Hospital Encounter Department of Radiation Oncology in [place], [place] [address] [place] [address] Pastora Wayne M.D. 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 I have a [facility] place to live 09/19/2023 Sex and Gender Information Value Date Recorded Sex Assigned at Female 09/19/2023 1:29 PM HAND II BLOCKER Gender Identity Female 09/19/2023 1:31 PM HAND II BLOCKER Sexual Orientation Straight 09/19/2023 1: 31 PM HAND II BLOCKER documented as of this encounter Last Filed Vital Signs Vital Sign Reading Time Taken Comments Blood Pressure - - Pulse - - Temperature 36.1 ??C (97 ??F) 09/19/2023 1:32 PM HAND II BLOCKER Respiratory Rate - - Oxygen Saturation - [...] breast cancer, pT1a(m) cNX cM0, G2, ER+, [place]+, HER2-, Ki-67=13%, s/p lumpectomy with positive DCIS margin. Treatment Course: 1xBreast Plan ID Fractions Dose / Fraction (cGy) Dose Treated (cGy) Dose Planned (cGy) First Treatment Last Treatment Elapsed Days [id number] 09/11/2023 09/19/2023 8 Course Summary 09/11/2023 [...] breast cancer, pT1a(m) cNX cM0, G2, ER+, [place]+, HER2-, Ki-67=13%, s/p lumpectomy with positive DCIS [...] visit was completed yesterday. I will contact [employer] disability office to inquire on additional paperwork that they need filled out to help with time off for patient (contact phone [phone]). She will continue with radiation treatment as [...] by: Shi Andrade R.N. 09/19/2023 1:50 PM HAND II BLOCKER II BLOCKER documented in this encounter Miscellaneous Notes * Addendum Note - Pastora Wayne M.D. - 09/19/2023 1:30 PM CSTEncounter addended by: Pastora Wayne M.D. on: 09/19/2023 4:00 PM Actions taken: Clinical Note Signed II BLOCKER * Addendum Note - Pastora Wayne M.D. - 09/19/2023 1:30 PM CSTEncounter addended by: Pastora Wayne M.D. on: 09/20/2023 10:13 AM Actions taken: Clinical Note Signed II BLOCKER documented in this encounter Plan of Treatment [...]
--- OUTSIDE RECORDS SUMMARY | 2023-12-05 12:46 | XMS_ITS | Encounter Summary ---
Author Name Unknown Organization [facility] Address [address] [place] [address] Care Team Providers Care Meat Boner Name Role Phone Unavailable Primary Care Provider Unavailabl e Reason for Referral * Specialty Diagnoses / Procedures Referred By Contneftali t Referred To Contact Estella Summers APRN, C.N.P., D.N.P. [address] [place] [phone] [facility] Region Referral ID Status Reason Start Date Expiration Date Visits Re quested Visits Authorized E COLORER Encounter Details Date Type Department Care Team (Latest Contact Info) Description 09/15/2023 12:25 PM PLATE COLORER - 09/15/2023 11:59 PM PLATE COLORER Hospital Encounter Department of Radiation Oncology in [place], [place] [address] [place] [phone] Pastora Wayne M.D. [address] [place] [phone] Shi Andrade R.N. [address] [place] [phone] Malignant Neoplasm Of Breast Upper Inner Quadrant [...] your living situation today? I have a [facility] place to live 09/19/2023 Sex and Gender Information Value Date Recorded Sex Assigned at Female 09/19/2023 1:29 PM PLATE COLORER Gender Identity Female 09/19/2023 1:31 PM PLATE COLORER Sexual Orientation Straight 09/19/2023 1: 31 PM PLATE COLORER documented as of this encounter Medications at [...]
--- OUTSIDE RECORDS SUMMARY | 2023-12-05 12:46 | XMS_ITS | Encounter Summary ---
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 200 [place] [address] [facility] Region Referral ID Status Reason Start Date Expiration Date V isits Requested Visits Authorized [id number] Authorized 08/04/2023 08/03/2024 10 10 Encounter Details Date Type Department Care Team (Latest Contact Info) Description 09/26/2023 12:52 PM PAINTER BARREL - 09/26/2023 4:16 PM PAINTER BARREL Hospital Encounter Department of Radiation Oncology in [place], [place] [address] [place] [phone] Pastora Wayne M.D. 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 I have a [facility] place to live 09/19/2023 Sex and Gender Information Value Date Recorded Sex Assigned at Female 09/19/2023 1:29 PM PAINTER BARREL Gender Identity Female 09/19/2023 1:31 PM PAINTER BARREL Sexual Orientation Straight 09/19/2023 1: 31 PM PAINTER BARREL documented as of this encounter Medications at [...] (cGy) First Treatment Last Treatment Elapsed Days [id number] 09/11/2023 09/26/2023 Course Summary [...] weeks. Disability paperwork has been faxed to [facility]. Dr. Sharpe will see patient in follow up in September 2023. We will keep Radiation Oncology follow up to an as needed basis only. Radiation Oncology Douglas can be contacted at anytime for any questions or concerns. Toxicities reviewed with Dr. Wayne today. Signed by: Shi Andrade R.N. 09/26/2023 2:43 PM PAINTER BARREL TER BARREL documented in this encounter Plan of Treatment [...]
--- OUTSIDE RECORDS SUMMARY | 2023-12-05 12:46 | XMS_ITS | Encounter Summary ---
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 [address] [place] [address] [facility] Referral ID Status Reason Start Date Expiration Date V isits Requested Visits Authorized [id number] Authorized 09/11/2023 08/03/2024 19 19 Encounter Details Date Type Department Care Team (Latest Contact Info) Description 09/19/2023 12:53 PM TECHNICAL SUPPORT ASSISTANT - 09/19/2023 11:59 PM [facility] Hospital Encounter Department of Radiation Oncology in [place], [place] [address] [place] [phone] Pastora Wayne M.D. [address] [place] [phone] Discharge Disposition: Home or Self Care Social History Tobacco Use Types Packs/Day Years Used Date Smoking Tobacco: Never Smokeless Tobacco: Never [facility] Utilities Answer Date Recorded In the past [...] Date Recorded Employment status Working with temporary [employer] 09/19/2023 Housing Stability Answer Date Recorded What is your living situation today? I have a [facility] place to live 09/19/2023 Sex and Gender Information Value Date Recorded Sex Assigned at Female 09/19/2023 1:29 PM TECHNICAL SUPPORT ASSISTANT Gender Identity Female 09/19/2023 1:31 PM TECHNICAL SUPPORT ASSISTANT Sexual Orientation Straight 09/19/2023 1: 31 PM TECHNICAL SUPPORT ASSISTANT documented as of this encounter Medications at [...]
--- OUTSIDE RECORDS SUMMARY | 2023-12-05 12:46 | XMS_ITS | Encounter Summary ---
Author Name Unknown Organization 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 [address] [place] [address] [facility] Referral ID Status Reason Start Date Expiration Date V isits Requested Visits Authorized [id number] Authorized 09/11/2023 08/03/2024 19 19 Encounter Details Date Type Department Care Team (Latest Contact Info) Description 09/18/2023 12:22 PM HARD TILE SETTER - 09/18/2023 12:34 PM [facility] Hospital Encounter Department of Radiation Oncology in [place], [place] [address] [place] [phone] Pastora Wayne M.D. [address] [place] [phone] Discharge Disposition: Home or Self Care Social History Tobacco Use Types Packs/Day Years Used Date Smoking Tobacco: Never Smokeless Tobacco: Never [facility] Utilities Answer Date Recorded In the past [...] Date Recorded Employment status Working with temporary [employer] 09/19/2023 Housing Stability Answer Date Recorded What is your living situation today? I have a [facility] place to live 09/19/2023 Sex and Gender Information Value Date Recorded Sex Assigned at Female 09/19/2023 1:29 PM HARD TILE SETTER Gender Identity Female 09/19/2023 1:31 PM HARD TILE SETTER Sexual Orientation Straight 09/19/2023 1: 31 PM HARD TILE SETTER documented as of this encounter Medications at [...]
--- OUTSIDE RECORDS SUMMARY | 2023-12-05 12:46 | XMS_ITS | Encounter Summary ---
Author Name Unknown Organization [facility] Address [address] [place] [address] Care Team Providers Care Certified Coder Name Role Phone Unavailable Primary Care Provider Unavailabl e Reason for Visit * Reason Comments Med Refill Encounter Details Date Type Department Care Team (Late st Contact Info) Description 10/19/2023 Refill Department of Radiation Oncology in [place], [place] [address] [place] [address] Bella Mora P.A.-C., M.S. [address] [place] [address] Med Refill Social History Tobacco Use Types Packs/Day Years Used Date Smoking Tobacco: Never Smokeless Tobacco: Never [facility] Utilities Answer Date Recorded In the past 12 months has [facility] electric, gas, oil, or water [employer] threatened to shut off services in your [...] Date Recorded Employment status Working with temporary [employer] 09/19/2023 Housing Stability Answer Date Recorded What is your living situation today? I have a [facility] place to live 09/19/2023 Sex and Gender Information Value Date Recorded Sex Assigned at Female 09/19/2023 1:29 PM DERRICKMAN HELPER Gender Identity Female 09/19/2023 1:31 PM DERRICKMAN HELPER Sexual Orientation Straight 09/19/2023 1: 31 PM DERRICKMAN HELPER documented as of this encounter Plan of Treatment Not on file documented as of this encounter Visit Diagnoses Not on filedocumented in this encounter
--- OUTSIDE RECORDS SUMMARY | 2023-12-05 12:46 | XMS_ITS | Encounter Summary ---
Author Name Unknown Organization [facility] Address [address] [place] [address] Care Team Providers Care Chief Embalmer Name Role Phone Unavailable Primary Care Provider Unavailabl e Encounter Details Date Type Department Care Team (Late st Contact Info) Description 10/19/2023 Clinical Communication Department of Radiation Oncology in [place], [place] [address] [place] [address] Fran Delgado M.D. [address] [place] [phone] Social History Tobacco Use Types Packs/Day Years Used Date Smoking Tobacco: Never Smokeless Tobacco: Never [facility] Utilities Answer Date Recorded In the past 12 months has [facility] electric, gas, oil, or water company [...] your living situation today? I have a [facility] place to live 09/19/2023 Sex and Gender Information Value Date Recorded Sex Assigned at Female 09/19/2023 1:29 PM NATIONAL INVESTIGATIVE PRODUCER Gender Identity Female 09/19/2023 1:31 PM NATIONAL INVESTIGATIVE PRODUCER Sexual Orientation Straight 09/19/2023 1: 31 PM NATIONAL INVESTIGATIVE PRODUCER documented as of this encounter Miscellaneous Notes * Telephone Encounter - Xenia Hall R.N. - 10/19/2023 10:51 AM NATIONAL INVESTIGATIVE PRODUCER Information Discussed Called patient to discuss Mometasone [...] following references were used: nursing clinical judgement ONAL INVESTIGATIVE PRODUCER * Telephone Encounter - Brandon Hall - 10/19/2023 9:55 AM CST Refill Medication Request: Medication: Mometasone Patient attempted to refill this prescription and the pharmacy stated that it was denied. Patient would like a refill of the cream as she says it provides her with a fair amount of relief. Patient uses [facility] in [place]. ONAL INVESTIGATIVE PRODUCER documented in this encounter Plan of Treatment Not on file documented as of this encounter Visit Diagnoses Not on filedocumented in this encounter
--- OUTSIDE RECORDS SUMMARY | 2023-12-05 12:46 | XMS_ITS ---
Author Name Unknown Organization [facility] Address [address] [place] [address] Care Team Providers Care Marketing Education Teacher Name Role Phone Unavailable Unavailable Unavailable Surgery Details Not on file Complications Check Surgery Details section. Procedure Estimated Blood Loss Check Surgery Details section. Procedure Findings Check Surgery Details section. Procedure Specimens Taken Check Surgery Details section.
--- OUTSIDE RECORDS SUMMARY | 2023-12-05 12:47 | XMS_ITS | Encounter Summary ---
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 [address] [place] [address] [facility] Referral ID Status Reason Start Date Expiration Date V isits Requested Visits Authorized [id number] Authorized 09/11/2023 08/03/2024 19 19 Encounter Details Date Type Department Care Team (Latest Contact Info) Description 09/14/2023 12:31 PM TECHNICAL ACCOUNT REPRESENTATIVE - 09/14/2023 11:59 PM [facility] Hospital Encounter Department of Radiation Oncology in [place], [place] [address] [place] [phone] Pastora Wayne M.D. [address] [place] [phone] Discharge Disposition: Home or Self Care Social History Tobacco Use Types Packs/Day Years Used Date Smoking Tobacco: Never Smokeless Tobacco: Never [facility] Utilities Answer Date Recorded In the [...] Date Recorded Employment status Working with temporary [employer] 09/19/2023 Housing Stability Answer Date Recorded What is your living situation today? I have a [facility] place to live 09/19/2023 Sex and Gender Information Value Date Recorded Sex Assigned at Female 09/19/2023 1:29 PM TECHNICAL ACCOUNT REPRESENTATIVE Gender Identity Female 09/19/2023 1:31 PM TECHNICAL ACCOUNT REPRESENTATIVE Sexual Orientation Straight 09/19/2023 1: 31 PM TECHNICAL ACCOUNT REPRESENTATIVE documented as of this encounter Medications at [...]
--- OUTSIDE RECORDS SUMMARY | 2023-12-05 12:47 | XMS_ITS | Encounter Summary ---
Author Name Unknown Organization [facility] Address [address] [place] [address] Care Team Providers Care Promotions Assistant Sales Marketing Name Role Phone Unavailable Primary Care Provider Unavailabl e Reason for Referral * Outpatient (Routine) - Closed Specialty Diagnoses / Procedures Referred By Helene frank Referred To Contact Radiation Oncology Pastora Wayne M.D. [address] [place] [address] [facility] Region Referral ID Status Reason Start Date Expiration Date Visits Re quested Visits Authorized [id number] Closed 08/04/2023 08/03/2026 1 1 Scheduling Instructions YIG, 2-3 weeks after the last surgery for a follow-up and simulation K HANDLER Reason for Visit * Outpatient (Routine) - Closed Specialty Diagnoses / Procedures Referred By Helene frank Referred To Contact Radiation Oncology Pastora Wayne M.D. 200 [place] [address] [facility] Region Referral ID Status Reason Start Date Expiration Date Visits Re quested Visits Authorized [id number] Closed 08/04/2023 08/03/2026 1 1 Encounter Details Date Type Department Care Team (Latest Contact Info) Description 08/30/2023 12:48 PM BLOCK HANDLER - 08/31/2023 1:16 PM BLOCK HANDLER Hospital Encounter Department of Radiation Oncology in [place], [place] [address] [place] [address] Pastora Wayne M.D. [address] [place] [phone] Malignant Neoplasm Of Breast Upper Inner Quadrant [...] Sex Assigned at Female 09/19/2023 1:29 PM BLOCK HANDLER Gender Identity Female 09/19/2023 1:31 PM BLOCK HANDLER Sexual Orientation Straight 09/19/2023 1: 31 PM BLOCK HANDLER documented as of this encounter Last Filed Vital Signs Vital Sign Reading Time Taken Comments Blood Pressure 132/76 08/30/2023 12:55 PM BLOCK HANDLER Pulse 68 08/30/2023 12:55 PM BLOCK HANDLER Temperature 36.4 ??C (97.5 ??F) 08/30/2023 1 2:55 PM BLOCK HANDLER Respiratory Rate - - Oxygen Saturation - - Inhaled Oxygen Concentration - - Weight 88.4 kg (194 lb 14.2 oz) 024 12:55 PM BLOCK HANDLER Height - - Body Mass Index - [...] of no special type (ductal) Histologic Grade (Aberdeen Histologic Score): Glandular (Acinar) / Tubular Differentiation: [...] mastectomy. Her case will be discussed at [facility] tumor board 07/06/2023 Tumor Board [...] breast cancer, pT1a(m) cNX cM0, G2, ER+, TX+, HER2-, Ki-67=13%, s/p lumpectomy with positive DCIS [...] [facility] Our DOS staff provided her with contact information for the department's patient access and bindery production manager in [place] to further assist with answering her questions. [...] Bella Mora P.A.-C., M.S. 08/31/2023 9:21 AM BLOCK HANDLER [facility] [address] [place] [address] K HANDLER Associated attestation - Pastora Wayne M.D. - 08/31/2023 1:15 PM BLOCK HANDLER RADIATION ONCOLOGY FOLLOW-UP VISIT I saw and [...] We discussed the acute as well as tank terminal gauger risks, including, but not limited to fatigue, [...] breast cancer, pT1a(m) cNX cM0, G2, ER+, TX+, HER2-, Ki-67=13%, s/p lumpectomy with positive DCIS [...]
--- OUTSIDE RECORDS SUMMARY | 2023-12-05 12:47 | XMS_ITS | Encounter Summary ---
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 [address] [place] [address] [facility] Referral ID Status Reason Start Date Expiration Date V isits Requested Visits Authorized [id number] Authorized 09/11/2023 08/03/2024 19 19 Encounter Details Date Type Department Care Team (Latest Contact Info) Description 09/11/2023 11:49 AM DRAMATIC TEACHER - 09/11/2023 11:59 PM [facility] Hospital Encounter Department of Radiation Oncology in [place], [place] [address] [place] [phone] Pastora Wayne M.D. [address] [place] [phone] Discharge Disposition: Home or Self [...] Date Recorded Employment status Working with temporary [employer] 09/19/2023 Housing Stability Answer Date Recorded What is your living situation today? I have a [facility] place to live 09/19/2023 Sex and Gender Information Value Date Recorded Sex Assigned at Female 09/19/2023 1:29 PM DRAMATIC TEACHER Gender Identity Female 09/19/2023 1:31 PM DRAMATIC TEACHER Sexual Orientation Straight 09/19/2023 1: 31 PM DRAMATIC TEACHER documented as of this encounter Medications at [...]
--- OUTSIDE RECORDS SUMMARY | 2023-12-05 12:47 | XMS_ITS | Encounter Summary ---
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 [address] [place] [address] [facility] Region Referral ID Status Reason Start Date Expiration Date V isits Requested Visits Authorized [id number] Authorized 08/04/2023 08/03/2024 10 10 Encounter Details Date Type Department Care Team (Latest Contact Info) Description 09/13/2023 10:27 AM SUPERVISOR CURING ROOM - 09/13/2023 1:25 PM SUPERVISOR CURING ROOM Hospital Encounter Department of Radiation Oncology in [place], [place] [address] [place] [phone] Pastora Wayne M.D. 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 I have a [facility] place to live 09/19/2023 Sex and Gender Information Value Date Recorded Sex Assigned at Female 09/19/2023 1:29 PM SUPERVISOR CURING ROOM Gender Identity Female 09/19/2023 1:31 PM SUPERVISOR CURING ROOM Sexual Orientation Straight 09/19/2023 1: 31 PM SUPERVISOR CURING ROOM documented as of this encounter Last Filed Vital Signs Vital Sign Reading Time Taken Comments Blood Pressure - - Pulse - - Temperature 36.4 ??C (97.6 ??F) 09/13/2023 1 0:46 AM SUPERVISOR CURING ROOM Respiratory Rate - - Oxygen Saturation - - Inhaled Oxygen Concentration - - Weight 88.4 kg (194 lb 14.2 oz) 024 10:46 AM SUPERVISOR CURING ROOM Height - - Body Mass Index - [...] breast cancer, pT1a(m) cNX cM0, G2, ER+, VA+, HER2-, Ki-67=13%, s/p lumpectomy with positive DCIS margin. Treatment Course: 1xBreast Plan ID Fractions Dose / Fraction (cGy) Dose Treated (cGy) Dose Planned (cGy) First Treatment Last Treatment Elapsed Days [id number] 09/11/2023 09/13/2023 2 Course Summary 09/11/2023 09/13/2023 [...] breast cancer, pT1a(m) cNX cM0, G2, ER+, VA+, HER2-, Ki-67=13%, s/p lumpectomy with positive DCIS [...] by: Xenia Hall R.N. 09/13/2023 11:18 AM SUPERVISOR CURING ROOM RVISOR CURING ROOM documented in this encounter Miscellaneous Notes * Addendum Note - Pastora Wayne M.D. - 09/13/2023 11:00 AM CSTEncounter addended by: Pastora Wayne M.D. on: 09/19/2023 4:01 PM Actions taken: Clinical Note Signed RVISOR CURING ROOM * Addendum Note - Pastora Wayne M.D. - 09/13/2023 11:00 AM CSTEncounter addended by: Pastora Wayne M.D. on: 09/20/2023 10:13 AM Actions taken: Clinical Note Signed RVISOR CURING ROOM documented in this encounter Plan of Treatment [...]
--- OUTSIDE RECORDS SUMMARY | 2023-12-05 12:47 | XMS_ITS | Encounter Summary ---
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 [address] [place] [address] [facility] Referral ID Status Reason Start Date Expiration Date V isits Requested Visits Authorized [id number] Authorized 09/11/2023 08/03/2024 19 19 Encounter Details Date Type Department Care Team (Latest Contact Info) Description 09/12/2023 12:23 PM CLINICAL EDUCATION COORDINATOR - 09/12/2023 11:59 PM [facility] Hospital Encounter Department of Radiation Oncology in [place], [place] [address] [place] [phone] Pastora Wayne M.D. [address] [place] [address] Discharge Disposition: Home or Self Care Social History Tobacco Use Types Packs/Day Years Used Date Smoking Tobacco: Never Smokeless Tobacco: Never [facility] Utilities Answer Date Recorded In the [...] Date Recorded Employment status Working with temporary [employer] 09/19/2023 Housing Stability Answer Date Recorded What is your living situation today? I have a [facility] place to live 09/19/2023 Sex and Gender Information Value Date Recorded Sex Assigned at Female 09/19/2023 1:29 PM CLINICAL EDUCATION COORDINATOR Gender Identity Female 09/19/2023 1:31 PM CLINICAL EDUCATION COORDINATOR Sexual Orientation Straight 09/19/2023 1: 31 PM CLINICAL EDUCATION COORDINATOR documented as of this encounter Medications at [...]
--- OUTSIDE RECORDS SUMMARY | 2023-12-05 12:47 | XMS_ITS | Encounter Summary ---
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 [address] [place] [address] [facility] Referral ID Status Reason Start Date Expiration Date V isits Requested Visits Authorized [id number] Authorized 09/11/2023 08/03/2024 19 19 Encounter Details Date Type Department Care Team (Latest Contact Info) Description 09/13/2023 10:27 AM INSTRUMENT AND ELECTRICAL TECHNICIAN - 09/13/2023 11:59 PM [facility] Hospital Encounter Department of Radiation Oncology in [place], [place] [address] [place] [phone] Pastora Wayne M.D. [address] [place] [address] Discharge Disposition: Home or Self Care Social History Tobacco Use Types Packs/Day Years Used Date Smoking Tobacco: Never Smokeless Tobacco: Never [facility] Utilities Answer Date Recorded In the [...] Date Recorded Employment status Working with temporary [employer] 09/19/2023 Housing Stability Answer Date Recorded What is your living situation today? I have a [facility] place to live 09/19/2023 Sex and Gender Information Value Date Recorded Sex Assigned at Female 09/19/2023 1:29 PM INSTRUMENT AND ELECTRICAL TECHNICIAN Gender Identity Female 09/19/2023 1:31 PM INSTRUMENT AND ELECTRICAL TECHNICIAN Sexual Orientation Straight 09/19/2023 1: 31 PM INSTRUMENT AND ELECTRICAL TECHNICIAN documented as of this encounter Medications at [...]
--- OUTSIDE RECORDS SUMMARY | 2023-12-05 12:47 | XMS_ITS | Encounter Summary ---
Author Name Unknown Organization [facility] Address [address] [place] [address] Care Team Providers Care Corporate Quality Engineer Name Role Phone Unavailable Primary Care Provider Unavailabl e Reason for Referral * Outpatient (Routine) - Closed Specialty Diagnoses / Procedures Referred By Helene frank Referred To Contact Radiation Oncology Pastora Wayne M.D. [address] [place] [phone] [facility] Region Referral ID Status Reason Start Date Expiration Date Visits Re quested Visits Authorized [id number] Closed 08/04/2023 08/03/2026 1 1 Scheduling Instructions YIG, 2-3 weeks after the last surgery for a follow-up and simulation O FORMING MACHINE OPERATOR Encounter Details Date Type Department Care Team (Late st Contact Info) Description 08/03/2023 Clinical Communication Department of Radiation Oncology in [place], [place] [address] [place] [phone] Pastora Wayne M.D. [address] [place] [phone] Social History Tobacco Use Types Packs/Day Years Used Date Smoking Tobacco: Never Smokeless Tobacco: Never Nutrition Answer Date Recorded Nutrition: EVOO Fat Source Unknown 06/30 Nutrition: Servings of Fruits/Vegetables per Day Not on file 06/30/2023 Dental Answer Date Recorded Dental: Regular Dentist Unknown 06/30/20 Sex and Gender Information Value Date Recorded Sex Assigned at Female 09/19/2023 1:29 PM MATZO FORMING MACHINE OPERATOR Gender Identity Female 09/19/2023 1:31 PM MATZO FORMING MACHINE OPERATOR Sexual Orientation Straight 09/19/2023 1: 31 PM MATZO FORMING MACHINE OPERATOR documented as of this encounter Miscellaneous Notes * Telephone Encounter - Bhavani Vázquez - 08/03/2023 1:33 PM CST Outside Provider/Health Care Facility Inquiry Caller???s name: Flor Caller???s role: Breast ambulatory care coordinator Release of Information verified: No, Continuation of care Facility name: [facility] Phone number: [phone] Degree of urgency for return call: Within [...] start treatment. Any additional pertinent information: N/A O FORMING MACHINE OPERATOR documented in this encounter Plan of Treatment Scheduled Referrals Name Type Priority Associated Diagnoses Orde r Schedule Radiation Oncology office visit (clinic) Outpatient Referral Routine Expected: 08/30/2023 (Approximate), Expires: 08/04/2024 documented as of this encounter Visit Diagnoses Not on filedocumented in this encounter
--- OUTSIDE RECORDS SUMMARY | 2023-12-05 12:47 | XMS_ITS | Encounter Summary ---
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 [address] [place] [address] [facility] Region Referral ID Status Reason Start Date Expiration Date Visits Re quested Visits Authorized [id number] Closed 08/04/2023 08/03/2024 1 1 Encounter Details Date Type Department Care Team (Latest Contact Info) Description 08/30/2023 1:30 PM AUDIO SPECIALIST - 08/30/2023 4:38 PM AUDIO SPECIALIST Hospital Encounter Department of Radiation Oncology in [place], [place] [address] [place] [phone] Pastora Wayne M.D. [address] [place] [address] Malignant Neoplasm Of Breast Upper Inner Quadrant [...] Sex Assigned at Female 09/19/2023 1:29 PM AUDIO SPECIALIST Gender Identity Female 09/19/2023 1:31 PM AUDIO SPECIALIST Sexual Orientation Straight 09/19/2023 1: 31 PM AUDIO SPECIALIST documented as of this encounter Medications [...] planning. CT images were transferred to the [employer] treatment planning system, after a reference isocenter was determined and marked. Segmentation and treatment planning will take place prior to treatment delivery. Patient set up and imaging was appropriate and completed without incident. Middle School Music Teacher use:No O SPECIALIST Associated attestation - Pastora Wayne M.D. - 08/30/2023 4:38 PM AUDIO SPECIALIST I was present during all critical and yan portions of the procedure(s) and immediately available [facility] the entire duration. See note for details. 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 08/30/2023 ??2:27 PM Initial Rad Onc Treatment Planning CT Simulation Performed by: Pastora Wayne M.D. Authorized by: Pastora Wayne M.D. ?? Pastora Wayne M.D. 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
--- NOTE | 2023-12-05 14:13 | W.ANESCHARGE ---
Anesthesia Charges Start Date/Time Anesthesia Start Date: 12/05/23 Anesthesia Start Time: 13:30 Stop Date/Time Anesthesia Stop Date: 12/05/23 Anesthesia Stop Time: 14:10
--- NOTE | 2023-12-05 14:15 | W.ANESCHARGE ---
Anesthesia Charges Start Date/Time Anesthesia Start Date: 12/05/23 Anesthesia Start Time: 13:30 Stop Date/Time Anesthesia Stop Date: 12/05/23 Anesthesia Stop Time: 14:10
== END 2023-12-05 12:43 | disposition home or self-care (01) ==
LOC: OP CLINIC 12:43
PROVIDERS: PCP Internal Medicine; Visit Provider Surgery
DX: Z12.11 Encounter for screening for malignant neoplasm of colon (principal); K63.5 Polyp of colon
CPT/HCPCS: 00811; 45385; 88305; J2704

== ENCOUNTER 2023-12-27 11:30 | Outpatient (RCR) | payer BC, SELFPAY ==
--- NOTE | 2023-10-25 14:01 | ONC.NURNOTE ---
Call to patient to see how she is tolerating her Anastrozole. Patient denies any side effects, questions or concerns.
== END 2024-01-27 23:59 | disposition home or self-care (01) ==
LOC: CCIC 11:30
PROVIDERS: PCP Internal Medicine; Visit Provider Internal Medicine Hematology & Oncology
DX: C50.911 Malignant neoplasm of unspecified site of right female breast (principal); Z17.0 Estrogen receptor positive status [ER+]; Z79.811 Long term (current) use of aromatase inhibitors; R23.2 Flushing
CPT/HCPCS: 99202; 99205; 99214; G0463

== ENCOUNTER 2024-06-07 18:01 | Outpatient (CLI) | payer BC, SELFPAY ==
--- OUTSIDE RECORDS SUMMARY | 2024-06-08 14:21 | XMS_ITS | Referral Summary ---
Author Organization [facility] Address [address] [place] [address] Care Team Providers Care Ob Gyn Physician Assistant Name Role Phone Unavailable Primary Care Provider Unavailabl e Source Comments Patient records contain information from all sites at [facility]. For routine questions regarding patient records, call [phone] during business hours, M-F 8:00 AM - 5:00 PM Central Time. Record requests for emergency care only can be directed to [phone] at any time.[facility] Allergies No known active allergies Medications HYDROcodone-rogelio taminophen (NORCO) 5-325 mg per tablet Take 1 tablet by mouth every 6 (six) hours as needed for pain. 3 Active senna 8.6 mg tablet TAKE 1 TABLET BY MOUTH EVERY DAY NEEDED FOR CONSTIPATION. 3 Active mometasone (ELOCON) 0.1 % cream Apply 1 Application topically daily. Apply to skin within the treatment field. 45 g 4 Active Active Problems Problem Noted Date Diagnosed Date Malignant Neoplasm Of Breast Upper Inner Quadrant Female Right 07/03/2023 Cancer Staging:Pathologic stage from 06/06/2023:Stage Unknown(pT1a, pNX, cM0, G2, ER+, WI+, HER2-) - Unsigned Social History Tobacco Use Types Packs/Day Years Used Date Smoking Tobacco: Never Smokeless Tobacco: Never Tobacco Cessation:Counseling Given: Not Answered [facility] Utilities Answer Date Recorded In the [...] Date Recorded Employment status Working with temporary [employer] 09/19/2023 Housing Stability Answer Date Recorded What is your living situation today? I have a [facility] place to live 09/19/2023 Comments Unknown Sex and Gender Information Value Date Recorded Sex Assigned at Female 09/19/2023 1:29 PM SECTION GANG Legal Sex Female 10:46 AM CDT Gender Identity Female 09/19/2023 1:31 PM SECTION GANG Sexual Orientation Straight 09/19/2023 1: 31 PM SECTION GANG Last Filed Vital Signs Vital Sign Reading Time Taken Comments Blood Pressure 132/76 08/30/2023 12:55 PM SECTION GANG Pulse 68 08/30/2023 12:55 PM SECTION GANG Temperature 36.1 ??C (97 ??F) 09/19/2023 1:32 PM SECTION GANG Respiratory Rate - - Oxygen Saturation - - Inhaled Oxygen Concentration - - Weight 88.4 kg (194 lb 14.2 oz) 024 10:46 AM SECTION GANG Height - - Body Mass Index - - Plan of Treatment Not on file Procedures Procedure Name Priority Date/Time Associated Diagnosis Comments OUTSIDE MG MAMMOGRAM Routine 06/06/2023 10:50 AM CDT from Last 3 Months or Most Recently Relevant to Health Maintenance Results * MM clip placement RT-Outside Mammogram (06/06/2023 10:50 AM CDT) Narrative II - 06/30/2023 2:19 PM CDT This order has been created and auto-finalized to support the import of outside images. If available, original interpretation can be found on the Media Tab in Chart Review, in Document Viewer, or as an image in QREADS. If a re-interpretation or overread is required please follow defined workflow. ?? us Provider Not In System IMG BI PROCEDURES Final R esult IIMT NA from Last 3 Months or Most Recently Relevant to Health Maintenance Insurance [facility]
--- OUTSIDE RECORDS SUMMARY | 2024-06-08 14:21 | XMS_ITS | Referral Summary ---
Author Organization [facility] Address [address] [place] [address] Care Team Providers Care Pulp House Supervisor Name Role Phone Md, Not Listed Primary [...] Comments Blood Pressure 112/74 08/09/2023 12:30 PM PROBATION AGENT Pulse 70 08/09/2023 12:30 PM PROBATION AGENT Temperature 36.8 ??C (98.2 ??F) 08/09/2023 11:[address] Respiratory Rate 12 08/09/2023 12:30 PM PROBATION AGENT Oxygen Saturation 97% 08/09/2023 12:30 PM PROBATION AGENT Inhaled Oxygen Concentration - - Weight - - Height 170.2 cm (5' 7) 08/07/2023 4:18 PM PROBATION AGENT Body Mass Index - - Plan of Treatment Not on file Care Teams Pulp House Supervisor Relationship Specialty Start Date End Date , Not Listed no address PCP - General Family Medicine 08/08/23
--- OUTSIDE RECORDS SUMMARY | 2024-06-08 14:21 | XMS_ITS | Clinical Summary ---
Author Organization [facility] Address [place], [place] [address] Care Team Providers Care Gas Station Cashier Name Role Phone Donya Cortes MD Primary Care Provider [phone] Allergies No known active allergies Medications Medication Sig Dispensed Refills Start Date End Date Status anastrozole (ARIMIDEX) 1 mg tablet Take 1 mg by mouth once daily. 10/30/2023 Active Calcium 600 with Vitamin D3 600 mg-10 mcg (400 unit) chew CHEW ONE TABLET BY MOUTH TWICE A DAY WITH MEALS 12/06/2023 Active ketoconazole 2% shampoo (NIZORAL) 2 % shampooIndications:S eborrheic dermatitis Lather on damp scalp leave on for 5-10 minutes, then rinse with water. Use 2 times per week. 240 mL 11 03/26/2024 Active minocycline (MINOCIN) 100 mg capsuleIndications:F olliculitis Take one capsule by mouth twice daily with meal and water. 60 Capsule 1 03/29/2024 Active Fluocinolone-Shower Cap 0.01 % oilIndications:Sebor rheic keratoses Apply to affected areas on scalp at bedtime 1-2 nights per week and wash out in the morning. 118 mL 11 05/02/2024 Active Active Problems Problem Noted Date Diagnosed Date Previous delivery, delivered, with or without mention of antepartum condition 12/27/2006 Encounters Date Type Department Care Team Description 05/24/2024 8:00 AM CDT Ancillary Procedure [facility] [address] [place] [address] 05/24/2024 Travel 05/13/2024 Telephone [facility] [address] [place] [address] Tamara Horton PA Questions 05/02/2024 8:00 AM CDT Office Visit [facility] [address] [place] [address] Tamara Horton PA Derm Problem 05/02/2024 Travel 04/03/2024 Telephone [facility] [address] [place] [address] Tamara Horton PA Results 03/29/2024 Telephone [facility] [address] [place] [address] Tamara Horton PA Results 03/26/2024 8:00 AM CDT Office Visit [facility] [address] [place] [address] Tamara Horton PA Derm Problem 03/26/2024 Travel from Last 3 Months Immunizations Name Administration Dates Next Due Influenza [...] Friends and Fami ly Not on file 08/28/2021 Financial Resource Strain Answer Date R ecorded [...] T Respiratory Rate 18 10/08/2019 1:57 PM AIR ANALYSIS ENGINEERING TECHNICIAN Oxygen Saturation 97% 02/27/2023 9:40 AM CDT Inhaled Oxygen Concentration - - Weight 90.4 kg (199 lb 3.2 oz) 02/27/2023 9:40 A M CDT Height 166.4 cm (5' 5.51) 10/08/2019 1:57 PM CS T Body Mass Index 32.63 10/08/2019 1:57 PM AIR ANALYSIS ENGINEERING TECHNICIAN Plan of Treatment Upcoming Encounters Date Type Department Care Team (Late st Contact Info) Description 08/08/2024 1:40 PM AIR ANALYSIS ENGINEERING TECHNICIAN Office Visit [facility] [address] [place] [address] Tamara Horton, YOSELIN [address] [place] [address] Health Maintenance Due Date Last Done Comments Depression screening for age 12+ 1973 HIV for age 15-65 1976 Hepatitis C screening for age 18-79 1979 Colonoscopy through age 75 2006 BMI (ht and wt on same day) for age 18+ 10/08/2020 10/08/2019, 10/01/2019, 12/01/2017 Lipids for age 45-75 11/29/2022 11/29/2017 COVID-19 vaccine series ( season) 2024 05/26/2023, 05/19/2022, 12/03/2021, Additional history exists Influenza for age 50-64 04/28/2024 06/08/20 22, 05/27/2020, 05/29/2019, Additional history exists Mammogram for age 45-75 05/24/2025 05/24/20 24, 05/18/2023, 05/12/2023, Additional history exists Pap test for age 21-65 03/14/2026 3, 03/14/2023, 05/12/2006, Additional history exists Tetanus booster 02/27/2033 02/27/2023, 08/17/2012 Zoster (shingles) series for age 50+ Completed 05/15/2020, 02/07/2020 Tdap Completed 02/27/2023, 08/17/2012 Pneumococcal series for age 6-64 Aged Out No longer eligible based on patient's age to complete this topic Procedures Procedure Name Priority Date/Time Associated Diagnosis Comments XR MAMMO GALE BILAT SCREEN Routine 05/24/2024 8:18 AM CDT Visit for screening mammogram AEROBIC BACTERIAL CULTURE, STAIN Routine 03/26/2024 11:17 AM CDT Folliculitis ANAEROBIC CULTURE Routine 03/26/2024 11: 17 AM CDT Folliculitis HPV HIGH RISK Routine 03/14/2023 5:00 PM CDT LIPID PANEL W REFLEX MEASURED LDL Routine 11/29/2017 8:21 AM CDT Screening for lipid disorders from Last 3 Months or Most Recently Relevant to Health Maintenance Results * XR MAMMO GALE BILAT SCREEN (05/24/2024 8:18 AM CDT) Anatomical Region Laterality Modality BREASTS, Breast Left, Breast Right Bilateral Mammography Impressions 05/24/2024 10:38 AM CDT ??There is no radiographic evidence for malignancy. ??Recommend annual mammograms. MAMMOGRAM ASSESSMENT: ??ACR 2 Benign PATIENTS: You will also receive a letter with your examination results in an easy to read format. ??If you have questions about your results, please contact your referring provider. Narrative 05/24/2024 10:38 AM CDT For Patients: As a result of the Century Cures Act, medical imaging exams and procedure reports are released immediately into your electronic medical record. You may view this report before your referring provider. If you have questions, please contact your health care provider. XR MAMMO GALE BILAT SCREEN [[id number]] CLINICAL HISTORY: ??This is an asymptomatic 63 y.o. patient. INDICATION FOR EXAM: Mammogram Screening. TECHNIQUE: CC & MLO views were obtained. ??This study was evaluated with the assistance of Computer-Aided Detection. Breast Tomosynthesis was used in interpretation. COMPARISON FILMS: Yes 05/12/23 [facility] 02/11/22 [facility] FINDINGS: ??There are scattered areas of fibroglandular density. ??No suspicious masses or microcalcifications. ??There are post treatment changes of right breast. Ariadna Acosta MD MAMMO * (ABNORMAL) AEROBIC BACTERIAL CULTURE, STAIN (03/26/2024 11:17 AM CDT) CULTURE RESULT(A) 03/29/2024 8:19 AM CDT [facility] CULTURE 1+ Mixed priya present 03/29/2024 8:19 AM CDT [facility] GRAM STAIN No PMNs 03/29/2024 8:19 AM CDT [facility] GRAM STAIN 1+ Gram Positive Bacilli 03/29/2024 8:19 AM CDT [facility] GRAM STAIN 1+ Gram Positive Cocci 03/29/2024 8:19 AM CDT [facility] GRAM STAIN 1+ Epithelial cells 03/29/2024 8:19 AM CDT [facility] GRAM STAIN No RBCs 03/29/2024 8:19 AM CDT [facility] Other SPECIMEN FROM SKIN / Unknown Non-Blood / Unknown 03/26/2024 11:17 AM CDT 03/26/2024 11:17 AM CDT Narrative [facility] - 03/29/2024 8:19 AM CDT Mixed Priya; No Staphylococcus aureus, beta-Strep, Strep. pneumoniae, or Pseudomonas aeruginosa Tamara WYATT MICROBIOLOGY [facility] [address] [place] [address], * ANAEROBIC CULTURE (03/26/2024 11:17 AM CDT) CULTURE No anaerobes isolated 04/01/2024 1:00 PM CDT [facility] Other SPECIMEN FROM SKIN / Unknown Non-Blood / Unknown 03/26/2024 11:17 AM CDT 03/26/2024 11:17 AM CDT Tamara WYATT MICROBIOLOGY Performing Organization Address [facility] Co de Phone Number [facility] [address] [place] [address], [place] * HPV HIGH RISK (03/14/2023 5:00 PM CDT) TYPE 16 Negative Negative 03/23/2023 1:50 PM CDT [facility] TYPE 18 Negative Negative 03/23/2023 1:50 PM CDT [facility] OTHER HIGH RISK TYPES Negative Negative 03/23/2023 1:50 PM CDT [facility] Other (Cervical) 03/14/2023 5:00 PM CDT 03/22/2023 11:44 AM CDT Narrative [facility] - 03/23/2023 1:50 PM CDT HPV types 16, 18, 31, 33, 35, 39, 45, 51, 52, 56, 58, 59, 66 and 68 DNA were undetectable or below the pre-set threshold. Methodology: Celia Francis 4800 HPV Test Mignon Sewell NP MICROBIOLOGY Performing Organization Address City/[facility]/ZIP Co de Phone Number [facility] [address] [place] [address], [place] * (ABNORMAL) LIPID PANEL W REFLEX MEASURED LDL (11/29/2017 8:21 AM CDT) CHOLESTEROL,TOTAL 150 100 - 199 mg/dL 11/29/2017 2:53 PM CDT [facility] TRIGLYCERIDES 70 <150 mg/dL 11/29/2017 2:53 PM CDT [facility] HDL CHOLESTEROL 39(L) >40 mg/dL 8 2:53 PM CDT [facility] NON-HDL CHOLESTEROL 111 <145 mg/dl 11/29/2017 2:53 PM CDT [facility] CHOL/HDL RATIO 3.85 <4.50 11/29/2017 2:53 PM CDT [facility] LDL CHOLESTEROL 97 <=130 mg/dL 11/29/2017 2:53 PM CDT [facility] PROVIDER ORDERED STATUS RANDOM 11/29/2017 2:53 PM CDT [facility] Blood BLOOD SPECIMEN / Unknown Butterfly / Unknown 11/29/2017 8:21 AM CDT 11/29/2017 8:21 AM CDT Ping WYATT CHEMISTRY [facility] [address] [place] [address], from Last 3 Months or Most Recently Relevant to Health Maintenance Care Teams Gas Station Cashier Relationship Specialty Start Date End Date Donya Cortes MD [address] [id number] PCP - General 02/09/22
--- OUTSIDE RECORDS SUMMARY | 2024-06-08 14:21 | XMS_ITS | Clinical Summary ---
Author Organization [facility] Address [address] [place] [address] Care Team Providers Care Telecommunications Line Installer Name Role Phone Unavailable Primary Care Provider Unavailabl e Source Comments Patient records contain information from all sites at [facility]. For routine questions regarding patient records, call [phone] during business hours, M-F 8:00 AM - 5:00 PM Central Time. Record requests for emergency care only can be directed to [phone] at any time.[facility] Allergies No known active allergies Medications HYDROcodone-rogelio [...] from 06/06/2023:Stage Unknown(pT1a, pNX, cM0, G2, ER+, [place]+, HER2-) - Unsigned Family History Medical History Relation Name Comments Breast cancer Paternal Cousin Relation Name Status Comments Paternal Cousin Other Social History Tobacco Use Types Packs/Day Years Used Date Smoking Tobacco: Never Smokeless Tobacco: Never Tobacco Cessation:Counseling Given: Not Answered [facility] Utilities Answer Date Recorded In the [...] Date Recorded Employment status Working with temporary [employer] 09/19/2023 Housing Stability Answer Date Recorded What is your living situation today? I have a [facility] place to live 09/19/2023 Comments Unknown Sex and Gender Information Value Date Recorded Sex Assigned at Female 09/19/2023 1:29 PM SUPERVISING PRODUCER Legal Sex Female 10:46 AM CDT Gender Identity Female 09/19/2023 1:31 PM SUPERVISING PRODUCER Sexual Orientation Straight 09/19/2023 1: 31 PM SUPERVISING PRODUCER Last Filed Vital Signs Vital Sign Reading Time Taken Comments Blood Pressure 132/76 08/30/2023 12:55 PM SUPERVISING PRODUCER Pulse 68 08/30/2023 12:55 PM SUPERVISING PRODUCER Temperature 36.1 ??C (97 ??F) 09/19/2023 1:32 PM SUPERVISING PRODUCER Respiratory Rate - - Oxygen Saturation - - Inhaled Oxygen Concentration - - Weight 88.4 kg (194 lb 14.2 oz) 024 10:46 AM SUPERVISING PRODUCER Height - - Body Mass Index - [...] PCV) 1967 Depression Screening (Annual PHQ-2) 08/28/2023 COVID-19 Vaccine (2023- season) 2024 05/26/2023, 05/19/2022, 12/03/2021, Additional history exists Influenza Vaccine (#1) 2024 , 06/08/2022, 05/27/2020, Additional history exists Mammogram 06/06/2024 06/06/2023, 05/28, 05/18/2023, Additional history exists DTaP,Tdap,and Td Vaccines (3 - Td or Tdap) 02/27/2033 02/27/2023, 08/17/2012 Zoster Vaccines Completed 05/15/2020, 02/07/2020 HPV Vaccines Aged Out No longer eligi ble based on patient's age to complete this topic Procedures Procedure Name Priority Date/Time Associated Diagnosis Comments OUTSIDE MG MAMMOGRAM Routine 06/06/2023 10:50 AM CDT from Last 3 Months or Most Recently Relevant to Health Maintenance Results * MM clip placement RT-Outside Mammogram (06/06/2023 10:50 AM CDT) Narrative IIMS - 06/30/2023 2:19 PM CDT This order [...] System IMG BI PROCEDURES Final R esult [facility] NA from Last 3 Months or Most Recently Relevant to Health Maintenance Insurance [employer] Member Subscriber Plan / Payer (Ef fective 2020-Present) Name:RENO GARCIA Relation to Subscriber:Self Name:Reno Garcia Payer ID:Not on file Type:PPO Address: [facility] [address] [place] [id number]
--- OUTSIDE RECORDS SUMMARY | 2024-06-08 14:21 | XMS_ITS | Clinical Summary ---
[facility] Address [address], [place] [address] Care Team Providers Care Software Systems Architect Name Role Phone Pcp, Pt Declines MD Primary Care Provider [phone] Source Comments You are receiving this document as you are listed as the primary care provider,follow-up provider, or the patient has been referred to you for consultation.This is in compliance with the Medicare and[facility] EHR Incentive [facility],which states Providers who transition their patient to another setting of careor provider of care or refers their patient to another provider of care shouldprovide summary care record for each transition of care or referral. [facility] Allergies No known active allergies Medications Medication [...] 82.6 kg (182 lb) 10/03/2016 11:22 AM INDUSTRIAL ELECTRICIAN Height 165.1 cm (5' 5) 10/03/2016 11:22 AM INDUSTRIAL ELECTRICIAN Body Mass Index 30.29 10/03/2016 11:22 AM INDUSTRIAL ELECTRICIAN Plan of Treatment Health Maintenance Due Date Last Done Comments Cervical Cancer Screening Due 1961 Colon Cancer Screening Plan Due 1961 Hep C Screening (Preventive Services) 1961 Mammogram 1961 HIV Screening (Preventive Services) 1977 Adult Preventive Visit 1979 Cholesterol 2006 DTaP/Tdap/Td (2 - Tdap) 08/17/2022 08/17/2012 COVID-19 Vaccine (2 - season) 2024 11/13/2020 Influenza (#1) 2024 05/27/2020, 10/09/2018, 04/30/2017, Additional history exists RSV (1 - 1-dose 75+ series) 2036 Zoster/Shingles Completed 05/15/2020, 02/07/2020 HepA Aged Out [...] on patient's age to complete this topic Infant RSV Aged Out No longer eligi ble based on patient's age to complete this topic MCV4 Aged Out No longer eligi ble based on patient's age to complete this topic Pneumococcal Aged Out No longer eligi ble based on patient's age to complete this topic Care Teams Software Systems Architect Relationship Specialty Start Date End Date Pcp, [place] [address] PCP - General 01/14/19
--- OUTSIDE RECORDS SUMMARY | 2024-06-08 14:21 | XMS_ITS | Clinical Summary ---
Author Organization [facility] Address [address] [place] [address] Care Team Providers Care Nursing Staff Development Coordinator Name Role Phone Md, Not Listed Primary [...] Comments Blood Pressure 112/74 08/09/2023 12:30 PM ADVISORY APPLICATION DEVELOPER Pulse 70 08/09/2023 12:30 PM ADVISORY APPLICATION DEVELOPER Temperature 36.8 ??C (98.2 ??F) 08/09/2023 11:[address] Respiratory Rate 12 08/09/2023 12:30 PM ADVISORY APPLICATION DEVELOPER Oxygen Saturation 97% 08/09/2023 12:30 PM ADVISORY APPLICATION DEVELOPER Inhaled Oxygen Concentration - - Weight - - Height 170.2 cm (5' 7) 08/07/2023 4:18 PM ADVISORY APPLICATION DEVELOPER Body Mass Index - - Plan of Treatment Health Maintenance Due Date Last Done Comments Colonoscopy 1961 Hepatitis C Screening 1961 Lipid Screening 1961 Pap Smear 1961 Anxiety Screening (ETHAN-2) 1962 Depression Assessment (PHQ-2) 1962 COVID-19 Vaccine ( season) 2024 Influenza Vaccine (#1) 2024 2, 05/27/2020, 05/29/2019, Additional history exists Yearly Review of HCD 07/09/2024 07/10/2023 Adult Tetanus Booster 02/27/2033 02/27/2023, 012 RSV Vaccines (1 - 1-dose 75+ series) 2036 Zoster Vaccine Completed 05/15/2020, 02/07/2020 Pneumococcal <65 Aged Out No longer e ligible based on patient's age to complete this topic Care Teams Nursing Staff Development Coordinator Relationship Specialty Start Date End Date , Not Listed no address PCP - General Family Medicine 08/08/23
--- OUTSIDE RECORDS SUMMARY | 2024-06-08 14:22 | XMS_ITS ---
Author Organization [facility] Address [address] [place] [address] Care Team Providers Care Overlock Hemmer Name Role Phone Unavailable Primary Care Provider Unavailabl e Active Problems Problem Noted Date Diagnosed Date Malignant Neoplasm Of Breast Upper Inner Quadrant Female Right 07/03/2023 Cancer Staging:Pathologic stage from 06/06/2023:Stage Unknown(pT1a, pNX, cM0, G2, ER+, [place]+, HER2-) - Unsigned Current Oncology Plans No current plan information found. Past Plans No past plan information found. Radiation Treatments * Plan Last Treated On Elapsed Days Fractions Treated Prescribed Fraction Dose Prescribed Total Dose [id number] 09/29/2023 18 15 of 15 267 cGy 4,005 cGy Reference Point Last Treated On Elapsed Days Session Dose Total Dose [id number] 09/29/2023 18 267 cGy 4,005 cGy
--- OUTSIDE RECORDS SUMMARY | 2024-06-08 14:22 | XMS_ITS ---
Author Organization [facility] Address [address] [place] [address] Care Team Providers Care Parts Sales Associate Name Role Phone Unavailable Unavailable Unavailable Surgery Details Not on file Complications Check Surgery Details section. Procedure Estimated Blood Loss Check Surgery Details section. Procedure Findings Check Surgery Details section. Procedure Specimens Taken Check Surgery Details section.
== END 2024-06-07 18:02 | disposition home or self-care (01) ==
LOC: NFLDREF 06-08 14:19
PROVIDERS: PCP Internal Medicine; Referring Provider Internal Medicine; Visit Provider Nurse Practitioner Family
DX: N30.00 Acute cystitis without hematuria (principal); B96.20 Unspecified Escherichia coli [E. coli] as the cause of diseases classified elsewhere
CPT/HCPCS: 87086; 87186

== ENCOUNTER 2024-06-16 11:51 | Outpatient (CLI) | payer BC, SELFPAY ==
--- OUTSIDE RECORDS SUMMARY | 2024-06-18 15:03 | XMS_ITS | Clinical Summary ---
Author Organization [facility] Address [address] [place] [address] Care Team Providers Care Banking Officer Name Role Phone Md, Not Listed [...] Comments Blood Pressure 112/74 08/09/2023 12:30 PM WEIGHT GUESSER Pulse 70 08/09/2023 12:30 PM WEIGHT GUESSER Temperature 36.8 ??C (98.2 ??F) 08/09/2023 11:[address] Respiratory Rate 12 08/09/2023 12:30 PM WEIGHT GUESSER Oxygen Saturation 97% 08/09/2023 12:30 PM WEIGHT GUESSER Inhaled Oxygen Concentration - - Weight - - Height 170.2 cm (5' 7) 08/07/2023 4:18 PM WEIGHT GUESSER Body Mass Index - - Plan of [...] age to complete this topic Care Teams Banking Officer Relationship Specialty Start Date End Date , Not Listed no address PCP - General Family Medicine 08/08/23
--- OUTSIDE RECORDS SUMMARY | 2024-06-18 15:03 | XMS_ITS | Clinical Summary ---
Author Organization [facility] Address [address], [place] [address] Care Team Providers Care Courtroom Reporter Name Role Phone Pcp, Pt Declines MD Primary Care Provider [phone] Source Comments You are receiving this document as you are listed as the primary care provider,follow-up provider, or the patient has been referred to you for consultation.This is in compliance with the Medicare and[facility] EHR Incentive Program,which states Providers who transition their patient to another setting of careor provider of care or refers their patient to another provider of care shouldprovide summary care record for each transition of care or referral. [facility] Allergies No known active allergies Medications Medication [...] 82.6 kg (182 lb) 10/03/2016 11:22 AM ENVELOPE SEALING MACHINE OPERATOR Height 165.1 cm (5' 5) 10/03/2016 11:22 AM ENVELOPE SEALING MACHINE OPERATOR Body Mass Index 30.29 10/03/2016 11:22 AM ENVELOPE SEALING MACHINE OPERATOR Plan of Treatment Health Maintenance Due Date [...] age to complete this topic Care Teams Courtroom Reporter Relationship Specialty Start Date End Date Pcp, [place] [address] PCP - General 01/14/19
--- OUTSIDE RECORDS SUMMARY | 2024-06-18 15:03 | XMS_ITS | Clinical Summary ---
Author Organization [facility] Address [address] [place] [address] Care Team Providers Care Teacher Aide Clerical Name Role Phone Unavailable Primary Care Provider Unavailabl e Source Comments Patient records contain information from all sites at [facility]. For routine questions regarding patient records, call [phone] during business hours, M-F 8:00 AM - 5:00 PM Central Time. Record requests for emergency care only can be directed to [phone] at any time.[facility] Allergies No known active allergies Medications HYDROcodone-rogelio [...] cM0, G2, ER+, [place]+, HER2-) - Unsigned Family History Medical History Relation Name Comments Breast cancer Paternal Cousin Relation Name Status Comments Paternal Cousin Other Social History Tobacco Use Types Packs/Day Years Used Date Smoking Tobacco: Never Smokeless Tobacco: Never Tobacco Cessation:Counseling Given: Not Answered [facility] Utilities Answer Date Recorded In the [...] living? No 09/19/2023 Nutrition Answer Date Recorded On average, how many serving s of fruits and vegetables do you eat per day (serving size is equal to 1 cup or approximately the size of a tennis ball)? 0-2 09/19/2023 Dental Answer Date Recorded Dental: Regular Dentist Yes 09/19/19 Employment Answer Date Recorded Employment status Working with temporary [employer] 09/19/2023 Housing Stability Answer Date Recorded What is your living situation today? I have a [facility] place to live 09/19/2023 Comments Unknown Sex and Gender Information Value Date Recorded Sex Assigned at Female 09/19/2023 1:29 PM LABORER POWERHOUSE Legal Sex Female 10:46 AM CDT Gender Identity Female 09/19/2023 1:31 PM LABORER POWERHOUSE Sexual Orientation Straight 09/19/2023 1: 31 PM LABORER POWERHOUSE Last Filed Vital Signs Vital Sign Reading Time Taken Comments Blood Pressure 132/76 08/30/2023 12:55 PM LABORER POWERHOUSE Pulse 68 08/30/2023 12:55 PM LABORER POWERHOUSE Temperature 36.1 ??C (97 ??F) 09/19/2023 1:32 PM LABORER POWERHOUSE Respiratory Rate - - Oxygen Saturation - - Inhaled Oxygen Concentration - - Weight 88.4 kg (194 lb 14.2 oz) 024 10:46 AM LABORER POWERHOUSE Height - - Body Mass Index - [...] Depression Screening (Annual PHQ-2) 08/28/2023 COVID-19 Vaccine ( - 2023- season) 2024 05/26/2023, 05/19/2022, 12/03/2021, Additional history [...] System IMG BI PROCEDURES Final R esult [facility] NA from Last 3 Months or Most Recently Relevant to Health Maintenance Insurance [facility]
--- OUTSIDE RECORDS SUMMARY | 2024-06-18 15:03 | XMS_ITS | Referral Summary ---
Author Organization [facility] Address [address] [place] [address] Care Team Providers Care Barrel Polisher Name Role Phone Md, Not Listed Primary [...] Comments Blood Pressure 112/74 08/09/2023 12:30 PM COATER SMOKING PIPE Pulse 70 08/09/2023 12:30 PM COATER SMOKING PIPE Temperature 36.8 ??C (98.2 ??F) 08/09/2023 11:[address] Respiratory Rate 12 08/09/2023 12:30 PM COATER SMOKING PIPE Oxygen Saturation 97% 08/09/2023 12:30 PM COATER SMOKING PIPE Inhaled Oxygen Concentration - - Weight - - Height 170.2 cm (5' 7) 08/07/2023 4:18 PM COATER SMOKING PIPE Body Mass Index - - Plan of Treatment Not on file Care Teams Barrel Polisher Relationship Specialty Start Date End Date , Not Listed no address PCP - General Family Medicine 08/08/23
--- OUTSIDE RECORDS SUMMARY | 2024-06-18 15:03 | XMS_ITS | Clinical Summary ---
Author Organization [facility] Address [place], [place] [address] Care Team Providers Care Help Desk Consultant Name Role Phone Donya Cortes MD Primary Care Provider [phone] Allergies No known active allergies Medications Medication [...] Description 05/24/2024 8:00 AM CDT Ancillary Procedure [facility] [address] [place] [address] 05/24/2024 Travel 05/13/2024 Telephone [facility] [address] [place] [address] Tamara Horton PA Questions 05/02/2024 8:00 AM CDT Office Visit [facility] [address] [place] [address] Tamara Horton PA Derm Problem 05/02/2024 Travel 04/03/2024 Telephone [facility] [address] [place] [address] Tamara Horton PA Results 03/29/2024 Telephone [facility] [address] [place] [address] Tamara Horton PA Results 03/26/2024 8:00 AM CDT Office Visit [facility] [address] [place] [address] Tamara Horton PA Derm Problem 03/26/2024 Travel [...] T Respiratory Rate 18 10/08/2019 1:57 PM INTELLIGENCE CHIEF Oxygen Saturation 97% 02/27/2023 9:40 AM CDT Inhaled Oxygen Concentration - - Weight 90.4 kg (199 lb 3.2 oz) 02/27/2023 9:40 A M CDT Height 166.4 cm (5' 5.51) 10/08/2019 1:57 PM CS T Body Mass Index 32.63 10/08/2019 1:57 PM INTELLIGENCE CHIEF Plan of Treatment Upcoming Encounters Date Type Department Care Team (Late st Contact Info) Description 08/08/2024 1:40 PM INTELLIGENCE CHIEF Office Visit [facility] [address] [place] [address] Tamara Horton, YOSELIN [address] [place] [address] Health Maintenance Due Date Last Done Comments [...] care provider. XR MAMMO GALE BILAT SCREEN [[id number]] CLINICAL HISTORY: ??This is an asymptomatic 63 y.o. patient. INDICATION FOR EXAM: Mammogram Screening. TECHNIQUE: CC & MLO views were obtained. ??This study was evaluated with the assistance of Computer-Aided Detection. Breast Tomosynthesis was used in interpretation. COMPARISON FILMS: Yes 05/12/23 [facility] 02/11/22 [facility] FINDINGS: ??There are scattered areas of fibroglandular density. ??No suspicious masses or microcalcifications. ??There are post treatment changes of right breast. Ariadna Acosta MD MAMMO * (ABNORMAL) AEROBIC BACTERIAL CULTURE, STAIN (03/26/2024 11:17 AM CDT) CULTURE RESULT(A) 03/29/2024 8:19 AM CDT [facility] CULTURE 1+ Mixed priya present 03/29/2024 8:19 AM CDT [facility] GRAM STAIN No PMNs 03/29/2024 8:19 AM CDT [facility] GRAM STAIN 1+ Gram Positive Bacilli 03/29/2024 8:19 AM CDT [facility] GRAM STAIN 1+ Gram Positive Cocci 03/29/2024 8:19 AM CDT [facility] GRAM STAIN 1+ Epithelial cells 03/29/2024 8:19 AM CDT [facility] GRAM STAIN No RBCs 03/29/2024 8:19 AM CDT [facility] Other SPECIMEN FROM SKIN / Unknown Non-Blood / Unknown 03/26/2024 11:17 AM CDT 03/26/2024 11:17 AM CDT Narrative [facility] - 03/29/2024 8:19 AM CDT Mixed Priya; No Staphylococcus aureus, beta-Strep, Strep. pneumoniae, or Pseudomonas aeruginosa Tamara WYATT MICROBIOLOGY [facility] [address] [place] [address], * ANAEROBIC CULTURE (03/26/2024 11:17 AM CDT) CULTURE No anaerobes isolated 04/01/2024 1:00 PM CDT [facility] Other SPECIMEN FROM SKIN / Unknown Non-Blood / Unknown 03/26/2024 11:17 AM CDT 03/26/2024 11:17 AM CDT Tamara WYATT MICROBIOLOGY Performing Organization Address [facility] Co de Phone Number [facility] [address] [place] [address], [place] * HPV HIGH RISK (03/14/2023 5:00 PM CDT) TYPE 16 Negative Negative 03/23/2023 1:50 PM CDT [facility] TYPE 18 Negative Negative 03/23/2023 1:50 PM CDT [facility] OTHER HIGH RISK TYPES Negative Negative 03/23/2023 1:50 PM CDT [facility] Other (Cervical) 03/14/2023 5:00 PM CDT 03/22/2023 11:44 AM CDT Narrative [facility] - 03/23/2023 1:50 PM CDT HPV types 16, 18, 31, 33, 35, 39, 45, 51, 52, 56, 58, 59, 66 and 68 DNA were undetectable or below the pre-set threshold. Methodology: Celia Francis 4800 HPV Test Mignon Sewell NP MICROBIOLOGY Performing Organization Address City/[facility]/ZIP Co de Phone Number [facility] [address] [place] [address], [place] * (ABNORMAL) LIPID PANEL W REFLEX MEASURED LDL (11/29/2017 8:21 AM CDT) CHOLESTEROL,TOTAL 150 100 - 199 mg/dL 11/29/2017 2:53 PM CDT [facility] TRIGLYCERIDES 70 <150 mg/dL 11/29/2017 2:53 PM CDT [facility] HDL CHOLESTEROL 39(L) >40 mg/dL 8 2:53 PM CDT [facility] NON-HDL CHOLESTEROL 111 <145 mg/dl 11/29/2017 2:53 PM CDT [facility] CHOL/HDL RATIO 3.85 <4.50 11/29/2017 2:53 PM CDT [facility] LDL CHOLESTEROL 97 <=130 mg/dL 11/29/2017 2:53 PM CDT [facility] PROVIDER ORDERED STATUS RANDOM 11/29/2017 2:53 PM CDT [facility] Blood BLOOD SPECIMEN / Unknown Butterfly / Unknown 11/29/2017 8:21 AM CDT 11/29/2017 8:21 AM CDT Ping WYATT CHEMISTRY [facility] [address] [place] [address], from Last 3 Months or Most Recently Relevant to Health Maintenance Care Teams Help Desk Consultant Relationship Specialty Start Date End Date Donya Cortes MD [address] [id number] PCP - General 02/09/22
--- OUTSIDE RECORDS SUMMARY | 2024-06-18 15:03 | XMS_ITS ---
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 Past Plans No past plan information found. Radiation Treatments * Plan Last Treated On Elapsed Days Fractions Treated Prescribed Fraction Dose Prescribed Total Dose [id number] 09/29/2023 18 15 of 15 267 cGy 4,005 cGy Reference Point Last Treated On Elapsed Days Session Dose Total Dose [id number] 09/29/2023 18 267 cGy 4,005 cGy
--- OUTSIDE RECORDS SUMMARY | 2024-06-18 15:03 | XMS_ITS ---
Author Organization [facility] Address [address] [place] [address] Care Team Providers Care Account Services Manager Name Role Phone Unavailable Unavailable Unavailable Surgery Details Not on file Complications Check Surgery Details section. Procedure Estimated Blood Loss Check Surgery Details section. Procedure Findings Check Surgery Details section. Procedure Specimens Taken Check Surgery Details section.
--- OUTSIDE RECORDS SUMMARY | 2024-06-18 15:03 | XMS_ITS | Referral Summary ---
Author Organization [facility] Address [address] [place] [address] Care Team Providers Care Records Management Assistant Name Role Phone Unavailable Primary Care Provider Unavailabl e Source Comments Patient records contain information from all sites at [facility]. For routine questions regarding patient records, call [phone] during business hours, M-F 8:00 AM - 5:00 PM Central Time. Record requests for emergency care only can be directed to [phone] at any time.[facility] Allergies No known active allergies Medications HYDROcodone-rogelio [...] from 06/06/2023:Stage Unknown(pT1a, pNX, cM0, G2, ER+, [place]+, HER2-) - Unsigned Social History Tobacco Use Types Packs/Day Years Used Date Smoking Tobacco: Never Smokeless Tobacco: Never Tobacco Cessation:Counseling Given: Not Answered [facility] Utilities Answer Date Recorded In the past 12 months has th e DVT[employer], gas, oil, or water company threatened to [...] Date Recorded Employment status Working with temporary [employer] 09/19/2023 Housing Stability Answer Date Recorded What is your living situation today? I have a [facility] place to live 09/19/2023 Comments Unknown Sex and Gender Information Value Date Recorded Sex Assigned at Female 09/19/2023 1:29 PM SALES TRAINING COORDINATOR Legal Sex Female 10:46 AM CDT Gender Identity Female 09/19/2023 1:31 PM SALES TRAINING COORDINATOR Sexual Orientation Straight 09/19/2023 1: 31 PM SALES TRAINING COORDINATOR Last Filed Vital Signs Vital Sign Reading Time Taken Comments Blood Pressure 132/76 08/30/2023 12:55 PM SALES TRAINING COORDINATOR Pulse 68 08/30/2023 12:55 PM SALES TRAINING COORDINATOR Temperature 36.1 ??C (97 ??F) 09/19/2023 1:32 PM SALES TRAINING COORDINATOR Respiratory Rate - - Oxygen Saturation - - Inhaled Oxygen Concentration - - Weight 88.4 kg (194 lb 14.2 oz) 024 10:46 AM SALES TRAINING COORDINATOR Height - - Body Mass Index [...] System IMG BI PROCEDURES Final R esult IIFL NA from Last 3 Months or Most Recently Relevant to Health Maintenance Insurance [facility]
== END 2024-06-16 11:52 | disposition home or self-care (01) ==
PROVIDERS: PCP Internal Medicine; Referring Provider Internal Medicine; Visit Provider Nurse Practitioner Family
DX: N30.00 Acute cystitis without hematuria (principal)
CPT/HCPCS: 87086; 87186

== ENCOUNTER 2024-09-30 15:30 | Outpatient (RCR) | payer BC, SELFPAY | END 2024-10-05 23:59 | disposition home or self-care (01) | LOC: CCIC 15:30 | PROVIDERS: PCP Internal Medicine; Visit Provider Physician Assistant | DX: C50.911 Malignant neoplasm of unspecified site of right female breast (principal); Z17.0 Estrogen receptor positive status [ER+]; Z79.811 Long term (current) use of aromatase inhibitors | CPT/HCPCS: 99213; 99214; G0463 ==

== ENCOUNTER 2025-08-08 10:41 | Outpatient (CLI) | payer BC, SELFPAY | END 2025-08-08 10:42 | disposition home or self-care (01) | LOC: NFLDREF 10:41 | PROVIDERS: PCP Internal Medicine; Visit Provider Registered Nurse | DX: Z13.9 Encounter for screening, unspecified (principal) | CPT/HCPCS: 80061 ==